=== PATIENT | male | born 1935 | race Caucasian/White ===

== ENCOUNTER 2017-04-25 09:29 | Outpatient (CLI) | payer MEDICARE ==
--- NOTE | 2017-04-25 10:04 | RAD ---
PA AND LATERAL CHEST: History: Dyspnea. Comparison: 06-24-15 FINDINGS: Heart size appears borderline enlarged with post op sternotomy change. Chronic lung changes are note d. No acute process. There are arthritic changes of the spine. IMPRESSION: Borderline cardiomegaly with chronic lung change. Stable chest. POS: [facility]
== END 2017-04-25 09:30 | disposition home or self-care (01) ==
LOC: RAD 09:29
PROVIDERS: ATTEND Internal Medicine
DX: R06.00 Dyspnea, unspecified (principal)
CPT/HCPCS: 71020

== ENCOUNTER 2018-03-01 10:50 | Outpatient (CLI) | payer MEDICARE ==
[2018-03-01] MEDS ORDERED: ISOVUE-370 76%-LOCM 1 ML ONE (11:14)
--- NOTE | 2018-03-01 14:15 | CT ---
CT OF THE ABDOMEN AND PELVIS: DATE: 03/01/18. COMPARISON: CT of abdomen 02/10/11. 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 TECHNIQUE: Serial axial CT imaging is obtained at 5 mm intervals from the lung bases through the pubic symphysis with IV contrast. Coronal and sagittal reformatted imaging obtained. FINDINGS: There is increased linear interstitial density noted within the inferolateral lingula suggesting scar and/or volume loss. Similar linear density noted in the right lung base. The lungs appear hyperinflated with increased interstitial density noted which suggests COPD in the formerly [facility] clinical setting. There is no free intraperitoneal air or free intraperitoneal fluid evident. Coronary arterial calcification is noted. The liver, gallbladder, spleen, and pancreas are grossly unremarkable. Bilateral adrenal masses are noted, measuring up to 1.5 cm on the right, stable, and measuring up to 2.1 cm on the left, stable. Stability since 2010 suggests benign etiology. Exophytic prominent upper pole left renal cyst present, measuring 6.4 cm. There is a low-density lesion in the mid pole of the right kidney measuring 1.9 cm. This lesion was not discretely visualized on the 02/10/11 CT examination. It demonstrates a rim which appears mildly t hickened and enhancing. Centrally, Hounsfield units of this lesion are approximately 30. Thus, this is suspicious for a possible renal cell carcinoma within the mid pole of the right kidney. The lack of oral contrast limits assessment of the bowel. No evidence for bowel inflammatory change or obstruction. There is a focal area of loss of volume of subcutaneous fat with mild skin thickening in the left low er quadrant/left inguinal region. In this region within the subcutaneous fat, there is an ill-define d linear area of increased density with no associated fluid collection. No drainable fluid collection is noted on this examination. There is diffuse atherosclerotic calcification of the abdominal aorta and its branches. Review of the osseous structures demonstrates severe degenerative change of the left hip. There is m ultilevel significant degenerative change involving the imaged spine, including prominent lower lumba r spine facet hypertrophic change. IMPRESSION: 1. Findings suspicious for a possible renal cell carcinoma within the mid pole of the right kidney. Recommend CT of the abdomen with and without contrast using a renal mass protocol. 2. Focal area of skin thickening and contour irregularity of the left soft tissues in the left ingui nal region with subjacent increased linear density within the subcutaneous fat. 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 There is no drainable fluid megan ection or associated abnormality within the peritoneal cavity. 3. Multiple additional incidental findings as detailed above. CODE T POS: [facility]
== END 2018-03-01 10:51 | disposition home or self-care (01) ==
LOC: BICCT 10:50
PROVIDERS: ATTEND Surgery
DX: L98.8 Other specified disorders of the skin and subcutaneous tissue (principal); R23.4 Changes in skin texture
CPT/HCPCS: 74177

== ENCOUNTER 2018-04-18 10:54 | Inpatient (IN) | payer MEDICARE ==
[2018-04-18 12:34] LABS: Actual Bicarbonate (HCO3a) 21.6 mEq/L (22-28); Analyzer IN Cardio ER; Base Excess (BEa) -1.7 mEq/L (-2.0 to +3.0); CO2 Tension 32.4 mmHg (35.0-45.0); Carboxyhemoglobin (COHb) 1.1 gm% (0.0-3.0); Hemoglobin (Hb) 13.4 g/dL (14.0-18.0); O2 Tension (PaO2) 101.8 mmHg (> 60.0); Potassium - ABG Lab 3.92 mmol/L (3.70-5.30); pH, Arterial 7.44 (7.35-7.45)
[2018-04-18 12:41] LABS: Puncture Site RRA
[2018-04-18 12:45] LABS: #Lymphocytes 0.4 thou/uL (1.20-3.40); #Monocytes 0.2 thou/uL (0.11-0.59); #Neutrophils 4.9 thou/uL (1.40-6.50); %Eosinophils 0.6 % (0.0-10.0); %Lymphocytes 7.1 % (21.0-51.0); %Monocytes 3.2 % (0.0-10.0); %Neutrophils 89.1 % (42.0-75.0); Hemoglobin 12.9 g/dL (14.0-18.0); Mean Corpuscular HGB CONC 31.5 g/dL (32.0-36.0); Mean Corpuscular Hemoglobin 29.6 pg (27.0-31.0); Mean Corpuscular Volume 94.1 fL (78.0-98.0); Mean Platelet Volume 7.1 fL (7.4-10.4); Platelet Count 154 thou/uL (130-400); RBC Distribution Width 12.7 % (11.5-14.5); Red Blood Cell (RBC) Count 4.34 mill/uL (4.70-6.10); White Blood Cell (WBC) Count 5.5 thou/uL (4.8-10.8)
[2018-04-18 13:13] LABS: Troponin I 0.276 ng/mL (< 0.028)
[2018-04-18] MEDS ORDERED: Albuterol Sulfate 1.25 MG/3 ML NEB NEB PRN (13:38)
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
[2018-04-18 15:31] LABS: Troponin I 0.491 ng/mL (< 0.028)
[2018-04-18 16:20] LABS: Lactic Acid 2.2 mmol/L (0.5-2.2)
[2018-04-18 16:43] VITALS: BMI 25.2
--- NOTE | 2018-04-18 19:32 | CON ---
DATE OF CONSULTATION: 04/18/2018 REASON FOR CONSULTATION: Positive troponins. PRIMARY [employer] OPERATOR: Darwin Lewis M.D. HISTORY OF PRESENT ILLNESS: Mr. Israel is a very pleasant 83-year-old white gentleman who comes to [facility] for increased shortness of breath. He noticed increased shortness of breath this morning. He noted that he had gained about 2 pounds in the last 2 days, so he had to double up on his Lasix. The shortness of breath got worse and actually started to become hypotensive, so he came into the [facility] Room where he was evaluated and was thought to be in COPD exacerbation with hypoten teodoro. He was given IV fluids and his blood pressure went from the 60s up to the 90s. Currently, his blood pressure is much better in the low 100s and is feeling much better as well. This is all after IV fluids. He has not received any Lasix. He denies any chest pain, tightness or pressure, but he is chronically short of breath. He is still a little bit more short of breath than normal. PAST MEDICAL HISTORY: 1. Chronic end-stage COPD. 2. Coronary artery disease status post CABG, first in 1984 x5 and the second one in 2001 x3. He has a known occluded RCA and occluded left circumflex and a subtotal LAD. He has a patent KHAN to the L AD back in 2014. Heart catheterization done by Dr. Lewis. He also has an open vein to an OM and a known occluded vein to the right. 3. Syncope, thought to be orthostatic. 4. Chronic atrial fibrillation. 5. Hypertension. 6. Obstructive sleep apnea. PAST SURGICAL HISTORY: 1. CABG as above. 2. Kidney stone removal. 3. Inguinal hernia repair. 4. Knee surgery. 5. Partial foot amputation, . SOCIAL HISTORY: No alcohol or drugs. Former smoker. FAMILY HISTORY: Positive for early heart disease in father. OUTPATIENT MEDICATIONS: 1. Systane gel eyedrops. 2. Multivitamins. 3. Potassium chloride. 4. Meclizine. 5. Lisinopril 2.5 b.i.d. 6. Imdur 60 mg a day. 7. [place]. 8. Lasix 4 mg b.i.d. 9. TriCor 48 a day. 10. Pulmicort. 11. Aspirin 81 a day. 12. Eliquis 5 mg b.i.d. 13. Albuterol inhaler. 14. Tylenol p.r.n. ALLERGIES: ADHESIVE TAPE. REVIEW OF SYSTEMS: A review of systems is done, it is all negative unless stated in the history of p resent illness. PHYSICAL EXAMINATION: VITAL SIGNS: Temperature 98.2, pulse 97, respiratory rate 18, satting 96% on 3 liters, blood pressur e 97/63, on my evaluation 116/68. GENERAL: Awake, alert, oriented x3, in mild respiratory distress. HEENT: Normocephalic, atraumatic. NECK: Supple. LUNGS: Have reduced breath sounds. CARDIOVASCULAR: S1, S2, no S3, S4. There is a grade 2/6 systolic murmur in the right upper sternal border. ABDOMEN: Soft, positive bowel sounds. EXTREMITIES: No edema. SKIN: Warm and dry. LABORATORY WORK: Reviewed. CBC with white count 5.5, hemoglobin 12.9, hematocrit 40, platelet count 154. ABG was reviewed. BNP was . Troponin went from 0.27 to 0.49. Lactic acid was 2.8 on ad mission down to 2.2 now. Chest x-ray showed chronic changes consistent with COPD, no obvious pulmonary edema. ASSESSMENT: 1. Non-ST elevation myocardial infarction: Likely demand ischemia from hypotension. 2. Chronic obstructive pulmonary disease exacerbation. 3. Hypotension, resolved after IV fluids. 4. Coronary artery disease. 5. Ischemic cardiomyopathy, last ejection fraction at 40%-45%. PLAN: 1. Continue to trend troponins. If they go significantly higher, we will plan on doing further risk stratification with a heart catheterization. At this point, he is most likely just having demand is chemia from his episode of hypotension. We have treated his COPD only and is already feeling better, which would go with this be being mostly COPD exacerbation and he had been doubling up on his Lasix lately as he thought the 3 pound gain was from volume overload and this may explain his fluid respons kenzie hypotension, stable at this time. 2. We will do echocardiogram in the morning and decision will be made depending on findings on echo. Thank you for letting us participate in the care of your patient. Dr. Lewis, his primary cardiol ogist will follow up in the morning.
[2018-04-18] MEDS: Apixaban 5 MG TAB PO SCH (20:15)
[2018-04-18] MEDS ORDERED: Vancomycin HCl 1 GM in Sodium Chloride 0.9% 250 ML 250 ML IVPB SCH (23:55)
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
[2018-04-19 04:38] LABS: Hemoglobin 12.7 g/dL (14.0-18.0); Mean Corpuscular HGB CONC 31.3 g/dL (32.0-36.0); Mean Corpuscular Hemoglobin 29.1 pg (27.0-31.0); Mean Corpuscular Volume 92.9 fL (78.0-98.0); Mean Platelet Volume 7.6 fL (7.4-10.4); Platelet Count 163 thou/uL (130-400); RBC Distribution Width 12.9 % (11.5-14.5); Red Blood Cell (RBC) Count 4.37 mill/uL (4.70-6.10); White Blood Cell (WBC) Count 6.5 thou/uL (4.8-10.8)
[2018-04-19 04:48] LABS: Band 5 % (5-11); Lymphocytes 8 % (21-51); MDiff Complete? YES; Monocytes 2 % (0-10); Neutrophil 85 % (42-75)
[2018-04-19 04:55] LABS: Anion Gap 11 mmol/L (10-20); BUN (Urea Nitrogen) 26 mg/dL (8.4-25.7); Calc. Creatinine Clearance 64 mL/min (70-130); Calcium 8.9 mg/dL (7.8-10.44); Carbon Dioxide 25 mmol/L (23-31); Chloride 105 mmol/L (98-107); Estimated GFR-MDRD 78; Glucose 158 mg/dL (83-110); Potassium 4.1 mmol/L (3.5-5.1); Sodium 137 mmol/L (136-145)
[2018-04-19 05:09] LABS: CKMB 12.9 ng/mL (0-6.6); Troponin I 0.701 ng/mL (< 0.028)
[2018-04-19] MEDS: Apixaban 5 MG TAB PO SCH ×2 (08:38→21:44)
[2018-04-19] MEDS ORDERED: Acetaminophen 325 MG TAB PO PRN (09:06)
--- NOTE | 2018-04-19 09:37 | PRG ---
DATE OF SERVICE: 04/19/2018 SUBJECTIVE: The patient seen and examined at bedside. He is in ICU bed 6. He seems to be better. His shortness of breath improved. He does not have any chest pain. OBJECTIVE: VITAL SIGNS: Blood pressure is 113/58, pulse is 101, respiratory rate is 25, pulse oximetry is 93%. HEENT: His head is atraumatic, normocephalic. Eyes are PERRLA. Sclerae is nonicteric. Oral mucosa is somewhat dry. NECK: Supple, no lymphadenopathy. Thyroid is not palpable. LUNGS: Few wheezes bilaterally. No crackles, no rales. HEART: S1, S2 normal, no S3, no S4, no murmur. ABDOMEN: Soft, nontender, bowel sounds are present, no organomegaly. EXTREMITIES: No clubbing, cyanosis or edema. NEUROLOGIC: He is alert and oriented x4. There is not any sensory or motor deficit. Cranial nerves are intact. LABORATORY DATA: Showed a white count of 6.5, hemoglobin 12.7, hematocrit 40.6, platelet count is 16 3,000. Normal electrolytes, BUN 26, creatinine 0.92, glucose 158, troponin I, second set 0.72. Thir d set 0.701. MICROBIOLOGY: None. IMPRESSION: 1. Exacerbation of chronic obstructive pulmonary disease. 2. Hypotension. It is felt that this was secondary to his doubling the dose on his Lasix for quite some time and volume depletion. 3. Elevated troponin, which is [id number] elevation myocardial infarction, most likely secondary to hypotension. 4. Chronic atrial fibrillation with rapid ventricular response. At this point, rate is controlled. 5. Coronary artery disease. 6. Hypertension. 7. History of obstructive sleep apnea. 8. History of syncope. 9. Renal insufficiency, improved. DISCUSSION: The patient's blood pressure improved significantly with IV fluids. His BUN is still el evated, which suggests that probably he needs a little bit more volume at this point. His chronic ob structive pulmonary disease improved. We will continue his IV steroids. He was seen by Dr. Amarilis boudreaux for pulmonary evaluation and management. Also, he was seen by Dr. Montes for Cardiology eval uation. PLAN: We will continue his IV antibiotic which is Levofloxacin. He was started on apixaban yesterda y 5 mg twice a day. We will continue that. We will continue albuterol treatments every 4 hours and p.r.n. and will restart his home medications except for furosemide, lisinopril and will continue DVT prophylaxis with SCDs. He might be able to go to the telemetry floor if it is okay with both subspeci alist.
--- NOTE | 2018-04-19 12:39 | PRG ---
DATE OF SERVICE: 04/19/2018 SERVICE: Pulmonary Medicine. INTERVAL HISTORY: The patient is doing fine from a respiratory standpoint. Denies any current chest pain, nausea, vomiting, fevers or chills. His shortness of breath has improved dramatically. He co ntinues to have a cough and is bringing up a little bit of yellow phlegm. Otherwise, there has been no interval change to his condition. PHYSICAL EXAMINATION: VITAL SIGNS: Afebrile, pulse 106, blood pressure 133/98, respirations 22, saturation 94% on 2 liters nasal cannula. GENERAL: The patient is awake and alert. He got mild respiratory distress with accessory muscle use , particularly with talking. He tends to settle down if not using his voice. HEENT: Normocephalic, atraumatic. Sclerae are white. Conjunctivae are pink. Oral mucosa is moist without lesions. LUNGS: Okay air entry. There is a prolonged expiratory phase with polyphonic wheezing, which is lat eral on the right compared to the left. Rhonchi are present with subtle dependent crackles. HEART: Normal rate, regular. ABDOMEN: Soft, nontender, nondistended. Bowel sounds are positive. MUSCULOSKELETAL: No cyanosis or clubbing. No pitting in the bilateral lower extremities. NEUROLOGIC: Grossly nonfocal. LABORATORY DATA: WBC 6.5, hemoglobin 12.7, platelets 163,000. Neutrophil count is 85% with 5% bands . PH 7.44, pCO2 32, pO2 101 on nasal cannula at that time. Basic metabolic profile is essentially u nremarkable. Cardiac enzymes are down trending to 0.701. Lactate 2.2. BNP 245, below his previousl y established baseline. ASSESSMENT: 1. Acute on chronic hypoxic respiratory failure. 2. Chronic obstructive pulmonary disease with acute exacerbation. 3. Atrial fibrillation, permanent. 4. Non-ST elevation myocardial infarction. 5. Chronic systolic heart failure without volume overload. DISCUSSION AND PLAN: We will deescalate our nebulized medications and steroids. Continue antibiotic s for the next 5 days. At this point, he can be transitioned out of the ICU to the telemetry unit. Pulmonary Critical Care will continue to follow in that location.
[2018-04-19] MEDS: Albuterol Sulfate 2.5 mg/3 ml Neb NEB PRN (14:33)
--- NOTE | 2018-04-19 17:14 | EKG ---
Test Reason : Blood Pressure : / mmHG Vent. Rate : 094 BPM Atrial Rate : 208 BPM P-R Int : 000 ms QRS Dur : 082 ms QT Int : 448 ms P-R-T Axes : 000 -78 204 degrees QTc Int : 560 ms Atrial fibrillation Left axis deviation Low voltage QRS Cannot rule out Inferior infarct , age undetermined Prolonged QT Abnormal ECG When compared with ECG of 18-APR-2018 11:03, (Unconfirmed) ST now depressed in Anterior leads T wave inversion more evident in Anterolateral leads QT has lengthened Confirmed by DR. Prosper SUN ([id number]) on 04/19/2018 5:14:36 PM Referred By: BANDAR Confirmed By:DR. Prosper SUN
--- NOTE | 2018-04-19 18:23 | PDOC.CTH ---
Cardiology Progress Note - Subjective Pt feels better. Recently admitted for COPD excacerbation - Objective Vital Signs Temp Pulse Resp BP Pulse Ox 04/19/18 15:01 97.9 F 97 22 H 136/75 98 04/19/18 14:33 96 18 93 L 04/19/18 13:07 94 16 93 L 04/19/18 10:46 106 H 22 H 94 L 04/19/18 08:00 94 L 04/19/18 07:45 94 24 H 93 L 04/19/18 07:00 98.1 F Weight 163 lb 5.8 oz 04/18/18 04/19/18 04/20/18 06:59 06:59 06:59 Intake Total 1160 1470 Output Total 700 951 Balance 460 519 - Physical Examination General/Neuro: NAD Neck: no JVD present Lungs: unlabored respirations, other: - Telemetry Telemetry Rhythm: wheezingf noted bilaterally - Labs Result Diagrams: 04/19/18 03:41 04/19/18 03:41 Troponin/CKMB CK-MB (CK-2) 12.9 ng/mL (0-6.6) H* 04/19/18 03:41 Troponin I 0.701 ng/mL (< 0.028) H* 04/19/18 03:41 - Assessment/Plan Elevated torponin Severe CAD COPD Tobacco use Pt with severe mutivessel disease felt to not be a good candidate for intervention Increase in troponin secondary to demand ischemia Continue current conservative treatment Pt not interested in aggressive treatment
[2018-04-19] MEDS: Budesonide 0.25 MG/2 ML NEB NEB SCH (18:41)
[2018-04-20] MEDS: Albuterol Sulfate 2.5 mg/3 ml Neb NEB PRN (02:43)
[2018-04-20 05:33] LABS: Anion Gap 9 mmol/L (10-20); BUN (Urea Nitrogen) 26 mg/dL (8.4-25.7); Calc. Creatinine Clearance 69 mL/min (70-130); Calcium 8.9 mg/dL (7.8-10.44); Carbon Dioxide 27 mmol/L (23-31); Chloride 107 mmol/L (98-107); Estimated GFR-MDRD 87; Glucose 145 mg/dL (83-110); Potassium 4.2 mmol/L (3.5-5.1); Sodium 139 mmol/L (136-145)
--- NOTE | 2018-04-20 06:11 | PDOC.CTH ---
Cardiology Progress Note - Subjective States has increased SOB today. States he ambulated and the O2 was not turned on after he got back in bed. No CP noted. - Objective Vital Signs Temp Pulse Resp BP Pulse Ox 04/20/18 03:37 97.7 F 91 16 125/67 95 04/20/18 02:43 105 H 24 H 97 04/19/18 23:14 86 16 97 04/19/18 20:00 97.9 F 88 16 121/82 94 L 04/19/18 18:41 74 16 97 Weight 163 lb 5.8 oz 04/18/18 04/19/18 04/20/18 06:59 06:59 06:59 Intake Total 1160 1470 Output Total 700 951 Balance 460 519 - Physical Examination General/Neuro: alert & oriented x3, NAD Neck: carotid US brisk, no JVD present Lungs: other: (mildly lbored) Heart: other: (irr) Abdomen: no HSM, NT/ND, soft - Labs Result Diagrams: 04/20/18 04:46 04/20/18 04:46 Troponin/CKMB CK-MB (CK-2) 12.9 ng/mL (0-6.6) H* 04/19/18 03:41 Troponin I 0.701 ng/mL (< 0.028) H* 04/19/18 03:41 - Assessment/Plan Acute on chronic systolic heart failure Severe CAD Continued tobacco use COPD Lasix added Overall lungs sound better today with no wheezing on my examination continue aggressive cv treatment From my standpoint, he is ok to transfer to medical on NOAC, ASA and statin Avoid BB secondary to wheezing
[2018-04-20 06:44] LABS: Band 7 % (5-11); Hemoglobin 12.6 g/dL (14.0-18.0); Lymphocytes 4 % (21-51); MDiff Complete? YES; Mean Corpuscular HGB CONC 31.4 g/dL (32.0-36.0); Mean Corpuscular Hemoglobin 29.3 pg (27.0-31.0); Mean Corpuscular Volume 93.4 fL (78.0-98.0); Mean Platelet Volume 7.3 fL (7.4-10.4); Monocytes 12 % (0-10); Neutrophil 77 % (42-75); Platelet Count 159 thou/uL (130-400); RBC Distribution Width 13.1 % (11.5-14.5); Red Blood Cell (RBC) Count 4.29 mill/uL (4.70-6.10); White Blood Cell (WBC) Count 10.3 thou/uL (4.8-10.8)
[2018-04-20] MEDS: Budesonide 0.25 MG/2 ML NEB NEB SCH ×2 (07:04→20:30)
[2018-04-20] MEDS: predniSONE 20 MG TAB PO SCH (08:40)
[2018-04-20] MEDS: Fenofibrate 48 MG TAB PO SCH (08:40)
[2018-04-20] MEDS: Prenatal Vitamin 1 TAB PO SCH (08:40)
[2018-04-20] MEDS: Aspirin 81 mg Enteric Coated Tablet PO SCH (08:40)
[2018-04-20] MEDS: Apixaban 5 MG TAB PO SCH ×2 (08:41→21:00)
[2018-04-20] MEDS: Potassium Chloride 10 MEQ TAB PO SCH (08:41)
--- NOTE | 2018-04-20 11:11 | PRG ---
DATE OF SERVICE: 04/20/2018 SUBJECTIVE: The patient is seen and examined at the bedside. He is still short of breath, but that is improved. He does not have any chest pain. He participated in physical therapy yesterday, but he could not finish because of dyspnea. OBJECTIVE: VITAL SIGNS: Blood pressure is 125/83, pulse is 88, temperature 97.8, respiratory rate is 18, and O2 saturation is 96% on 2 liters by nasal cannula. HEENT: Head is atraumatic, normocephalic. Eyes are PERRLA, sclerae is nonicteric. Oral mucosa is m oist. NECK: Supple. LUNGS: Emphysematous with few wheezes bilaterally. No crackles. HEART: S1, S2 distant. No S3, no S4. ABDOMEN: Soft, nontender, nondistended. EXTREMITIES: No clubbing, cyanosis or edema. NEUROLOGIC: He is alert and oriented x4. There is not any motor or sensory deficits present. Crani al nerves are intact. LABORATORY DATA: Showed white count of 10.3, hemoglobin of 12.6, hematocrit 41. Platelet count 159, 000. Normal electrolytes, BUN of 26, creatinine 0.84, glucose 145. IMPRESSION: 1. Exacerbation of chronic obstructive pulmonary disease with some improvement. He is switched to o ral prednisone by linter tender. I will continue his antibiotic and DuoNebs. He wants to buy an oxy gen concentrator at home so he can use it 24 hours a day and that is what it looks like he will need to do that. 2. Elevated troponin, which is felt to be non-ST segment elevation myocardial infarction. 3. Chronic atrial fibrillation with rapid ventricular response, rate controlled. 4. Severe coronary artery disease. The patient was seen by Dr. Lewis, his primary resident care spec, who recommends conservative treatment. 5. Hypertension. 6. History of obstructive sleep apnea. 7. History of syncope. 8. Renal insufficiency, improved. PLAN: Continue his IV antibiotic and p.o. steroids. Continue his apixaban twice a day. Continue Du oNebs, continue SCDs for DVT prophylaxis.
[2018-04-20] MEDS ORDERED: Furosemide 40 MG TAB PO SCH (11:45)
--- NOTE | 2018-04-20 12:20 | PRG ---
DATE OF SERVICE: 04/20/2018 SERVICE: Pulmonary Medicine. INTERVAL HISTORY: The patient is doing okay from a respiratory standpoint. He continues to make slo w progress. That being said, last night, at 2:00 in the morning, he needed to use the restroom. He is keeping the urinal in the bathroom. The process of being off the oxygen to get to the bathroom wa s horrendous. He had a terrible dyspnea, cough that came of that. Once he got back into bed, it too k him a good 15-20 minutes before he settled down and required a nebulized treatment. That being hoang d, he did well and that was his only event that occurred. He denies any current fevers or chills. H e is bringing up a little bit of green sputum. PHYSICAL EXAMINATION: VITAL SIGNS: Afebrile, pulse 88, blood pressure 125/83, respirations 18, saturation 96% on 2 liters nasal cannula. GENERAL: The patient is awake, alert, in no apparent distress. LUNGS: Reduced air entry with a prolonged expiratory phase. I hear wheezing as well as crackles pre sent. Rhonchi clear with cough. HEART: Normal rate, regular. ABDOMEN: Soft, nontender, nondistended. Bowel sounds are positive. MUSCULOSKELETAL: No cyanosis or clubbing. There is no pitting in the bilateral lower extremities. NEUROLOGIC: Grossly nonfocal. LABORATORY DATA: WBC 10.3, hemoglobin 12.6, platelets 159,000. Neutrophil count is 77% on top of 7% bands. Basic metabolic profile is essentially unremarkable. His BUN is 26 and stable. Bicarbonate 27. Troponin was previously downtrending. ASSESSMENT: 1. Acute on chronic hypoxic respiratory failure. 2. Chronic obstructive pulmonary disease with acute exacerbation. 3. Atrial fibrillation, permanent. 4. Rjb-UI-skuunqhru myocardial infarction, secondary to demand. 5. Chronic systolic heart failure with minimal volume overload. DISCUSSION AND PLAN: We will resume the patient's home dose of Lasix. Pulmonary Critical Care will continue to follow along. We will continue supportive measures with antibiotics, nebulized medicatio ns, and steroids. He will need an additional 1-2 days in the hospital. He has not fully turned arou nd from this chronic obstructive pulmonary disease exacerbation. I will send off respiratory virus p eliceo to see whether or not there is a virus that caused some of this decompensation.
--- NOTE | 2018-04-20 12:54 | PQF ---
DATE: 04-23-18 ATTN: DR. MARIAN PORTILLO / DR. VALDEZ Please exercise your independent, professional judgment in responding to the clarification form. Clinical indicators are provided on the bottom of this form for your review Please check appropriate box(s): [ ] Acute Renal Failure (ARF) / Acute Kidney Injury (DONELL) [ ] Insignificant Lab Values [ ] Other diagnosis [ x] Unable to determine In addition, please specify: Present on Admission (POA): [ ] Yes [ ] No [ ] Unable to determine National Kidney Foundation Guidelines for CKD Staging Stage I Kidney damage with normal or increased GFR GFR > 90 Stage II Kidney damage with mildly decreased GFR GFR 60-89 Stage III Kidney damage with moderately decreased GFR GFR 30-59 Stage IV Kidney damage with severely decreased GFR GFR 16-29 Stage V Kidney failure GFR<15 ESRD End Stage Renal Disease On dialysis Acute Renal Failure/Acute Kidney Failure defined as: Increases in SCr by (>) 0.3 mg/dl within 48 hours OR- Increases in SCr by (>) 1.5 times baseline, known or presumed to have occurred within the prior 7 days OR- Urine volume < 0.5 ml/kg/hour for 6 hours (KDIGO supplement 2012 for RIFLE/BEATRIZ criteria) For continuity of documentation, please document condition throughout progress notes and discharge summary. Thank You. CLINICAL INDICATORS - SIGNS / SYMPTOMS / LAB GFR: 04-19-18: 78 04-20-18: 87 CREATININE: 04-19-18: 0.92 04-20-18: 0.84 BUN: 04-19-18: 26 04-20-18: 26 H&P: RENAL INSUFFICIENCY, MOST LIKELY PRERENAL PN DR. PORTILLO 04-20-18: RENAL INSUFFICIENCY, IMPROVED RISK FACTORS: ER: HX COPD, SOB, WEAKNESS, HTN, A FIB, CAD, CHF, CABG , TOBACCO USE ER: HOME MEDS: ISOSORBIDE MONONITRATE, FUROSEMIDE, ASA, NORCO. LISINOPRIL TREATMENTS: ER: NS IVF X 2 (This form is maintained as a part of the permanent medical record) 2014 [employer], [employer]. All Rights Reserved [email or web address] Office: [phone] [facility]
--- NOTE | 2018-04-20 13:14 | PQF ---
DATE: 04-23-18 ATTN: DR. MARIAN PORTILLO/ DR. VALDEZ Please exercise your independent, professional judgment in responding to the clarification form. Clinical indicators are provided on the bottom of this form for your review Please check appropriate box(s) to clarify if the following diagnosis has been ruled in or ruled out: SEPSIS [ ] Ruled in diagnosis [ ] Continue to treat [ ] Resolved [ x ] Ruled out diagnosis [ ] Other diagnosis [ ] Unable to determine In addition, please specify: Present on Admission (POA): [ ] Yes [ ] No [ ] Unable to determine For continuity of documentation, please document condition throughout progress notes and discharge summary. Thank You. CLINICAL INDICATORS - SIGNS / SYMPTOMS / LABS ER: COPD, A FIB, SEPSIS H&P: HYPOTENSION OF UNKNOWN ETIOLOGY AT THIS POINT, RULE OUT OUT SEPSIS, RULE OUT CARDIOLOGY ETIOLOGY BP: 74/58, 86/57, 92/63, 84/58, 96/63, 89/66 RR: ER: 24, 22 04-19-18: 24, 22, 22, 24 PULSE: 04-19-18: 106 04-20-18: 105, 103, 110 RISK FACTORS: H&P: HYPOTENSION OF UNKNOWN ETIOLOGY AT THIS POINT, RULE OUT OUT SEPSIS, RULE OUT CARDIOLOGY ETIOLOGY ER: SOB, WEAKNESS, HTN, A FIB, BPH, CHF, CABG, TOBACCO USE TREATMENTS: ER: VANCOMYCIN IV, IVF, LEVAQUIN (This form is maintained as a part of the permanent medical record) 2014 [employer], [employer]. All Rights Reserved [email or web address] Office: [phone] [facility]
[2018-04-21 05:50] LABS: Band 3 % (5-11); Hemoglobin 12.4 g/dL (14.0-18.0); Lymphocytes 13 % (21-51); MDiff Complete? YES; Mean Corpuscular HGB CONC 30.9 g/dL (32.0-36.0); Mean Corpuscular Volume 93.7 fL (78.0-98.0); Mean Platelet Volume 7.3 fL (7.4-10.4); Monocytes 10 % (0-10); Neutrophil 73 % (42-75); Platelet Count 156 thou/uL (130-400); Reactive Lymphocytes 1 % (0-10); Red Blood Cell (RBC) Count 4.29 mill/uL (4.70-6.10); White Blood Cell (WBC) Count 8.4 thou/uL (4.8-10.8)
[2018-04-21 06:12] LABS: Anion Gap 7 mmol/L (10-20); BUN (Urea Nitrogen) 25 mg/dL (8.4-25.7); Calc. Creatinine Clearance 69 mL/min (70-130); Carbon Dioxide 33 mmol/L (23-31); Chloride 104 mmol/L (98-107); Estimated GFR-MDRD 87; Glucose 102 mg/dL (83-110); Potassium 4.3 mmol/L (3.5-5.1); Sodium 140 mmol/L (136-145)
[2018-04-21] MEDS: Budesonide 0.25 MG/2 ML NEB NEB SCH ×2 (06:46→18:22)
[2018-04-21] MEDS: predniSONE 20 MG TAB PO SCH (09:21)
[2018-04-21] MEDS: Potassium Chloride 10 MEQ TAB PO SCH (09:21)
[2018-04-21] MEDS: Furosemide 40 MG TAB PO SCH (09:21)
[2018-04-21] MEDS: Aspirin 81 mg Enteric Coated Tablet PO SCH (09:22)
[2018-04-21] MEDS: Apixaban 5 MG TAB PO SCH ×2 (09:22→20:20)
[2018-04-21] MEDS: Fenofibrate 48 MG TAB PO SCH (09:22)
[2018-04-21] MEDS: Prenatal Vitamin 1 TAB PO SCH (09:22)
--- NOTE | 2018-04-21 12:35 | PDOC.PN ---
- Subjective Encounter Start Date: 04/21/18 Encounter Start Time: 10:30 Subjective: breathing better, is amb in hallway per patient - Objective Resuscitation Status: Resuscitation Status DNR:Do Not Resuscitate MAR Reviewed: Yes Vital Signs & Weight: Vital Signs (12 hours) Temp Pulse Resp BP Pulse Ox 04/21/18 08:01 97.7 F 81 20 126/58 L 95 04/21/18 08:00 95 04/21/18 06:50 94 L 04/21/18 06:46 84 16 04/21/18 04:00 97.8 F 70 20 124/63 96 04/21/18 02:59 76 16 95 Weight Weight 165 lb Most Recent Monitor Data Heart Rate from ECG 93 NIBP 135/68 NIBP BP-Mean 90 Respiration from ECG 23 SpO2 96 I&O: 04/20/18 04/21/18 04/22/18 06:59 06:59 06:59 Intake Total 1950 600 Output Total 2025 2224 Balance -76 -4926 Result Diagrams: 04/21/18 04:56 04/21/18 04:56 Phys Exam - Physical Examination HEENT: PERRLA, moist MMs Neck: no JVD, supple Respiratory: no wheezing rhonchi+, basal rales+ Cardiovascular: RRR, no significant murmur Gastrointestinal: soft, non-tender, positive bowel sounds Musculoskeletal: no edema, pulses present Neurological: non-focal, moves all 4 limbs Psychiatric: normal affect, A&O x 3 Dx/Plan (1) CHF exacerbation Code(s): I50.9 - HEART FAILURE, UNSPECIFIED Status: Acute Qualifiers: Heart failure type: combined systolic and diastolic Qualified Code(s): I50.43 - Acute on chronic combined systolic (congestive) and diastolic ( congestive) heart failure (2) Acute and chronic respiratory failure with hypoxia Code(s): J96.21 - ACUTE AND CHRONIC RESPIRATORY FAILURE WITH HYPOXIA Status: Acute Comment: improving.. (3) COPD exacerbation Code(s): J44.1 - CHRONIC OBSTRUCTIVE PULMONARY DISEASE W (ACUTE) EXACERBATION Status: Acute (4) A-fib Code(s): I48.91 - UNSPECIFIED ATRIAL FIBRILLATION Status: Chronic Qualifiers: Comment: stable.. (5) CAD (coronary artery disease) Code(s): I25.10 - ATHSCL HEART DISEASE OF [place] CORONARY ARTERY W/O ANG PCTRS Status: Chronic Qualifiers: Coronary Disease-Associated Artery/Lesion type: bypass graft [place] vs. transplanted heart: [place] heart Associated angina: without angina Qualified Code(s): I25.810 - Atherosclerosis of coronary artery bypass graft(s) without angina pectoris (6) HTN (hypertension) Code(s): I10 - ESSENTIAL (PRIMARY) HYPERTENSION Status: Chronic Qualifiers: Hypertension type: essential hypertension Qualified Code(s): I10 - Essential (primary) hypertension (7) Dyslipidemia Code(s): E78.5 - HYPERLIPIDEMIA, UNSPECIFIED Status: Chronic - Plan is on levaquin, nebs and prednisone -: asp, eliquis, lasix, tricor -: to mobilize as tolerated -: tx to med floor -: hemostable, d/w family at bedside * . Review of Systems - Medications/Allergies Allergies/Adverse Reactions: Allergies Allergy/AdvReac Type Severity Reaction Status Date / Time adhesive AdvReac Verified 02/07/18 16:57 Medications: Current Medications Acetaminophen (Tylenol) 650 mg PO Q4H PRN PRN Reason: Pain Albuterol Sulfate (Ventolin) 2.5 mg NEB Q2H PRN PRN Reason: Wheezing Last Admin: 04/20/18 02:43 Dose: 2.5 mg Albuterol/Ipratropium (Duoneb) 3 ml NEB [id number] [facility] Last Admin: 04/21/18 06:46 Dose: 3 ml Apixaban (Eliquis) 5 mg PO BID [facility] Last Admin: 04/21/18 09:22 Dose: 5 mg Aspirin (Ecotrin) 81 mg PO DAILY [facility] Last Admin: 04/21/18 09:22 Dose: 81 mg Budesonide (Pulmicort Neb Solution) 0.25 mg NEB BID-RT [facility] Last Admin: 04/21/18 06:46 Dose: 0.25 mg Fenofibrate (Tricor) 48 mg PO DAILY [facility] Last Admin: 04/21/18 09:22 Dose: 48 mg Furosemide (Lasix) 40 mg PO DAILY-AC [facility] Last Admin: 04/21/18 09:21 Dose: 40 mg Levofloxacin 750 mg/ Device 150 mls @ 100 mls/hr IVPB Q24HR@1000 [facility] Last Admin: 04/21/18 09:22 Dose: 150 mls Isosorbide Mononitrate (Imdur) 60 mg PO DAILY [facility] Last Admin: 04/21/18 09:22 Dose: 60 mg Potassium Chloride (Klor-Con 10) 10 meq PO DAILY [facility] Last Admin: 04/21/18 09:21 Dose: 10 meq Prednisone (Prednisone) 40 mg PO [facility] Last Admin: 04/21/18 09:21 Dose: 40 mg Multivit/Folic Acid/Iron ( Vitamin) 1 tab PO DAILY [facility] Last Admin: 04/21/18 09:22 Dose: 1 tab
--- NOTE | 2018-04-21 15:27 | PRG ---
DATE OF SERVICE: 04/21/2018 SERVICE: Pulmonary Medicine. INTERVAL HISTORY: The patient actually feels like he is much improved. He finally turned the corner . He is moving better air. He is able to walk the hallways. He does have dyspnea that slows him do wn. That being said, he is much closer to baseline at this time. PHYSICAL EXAMINATION: VITAL SIGNS: Afebrile, pulse 89, blood pressure 122/62, respirations 18, saturation 92% on room air. GENERAL: The patient is awake, alert, no apparent distress. LUNGS: Decent air entry. There is still prolonged expiratory phase. Minimal crackles are present d ependently with expiratory wheezing. Rhonchi are much improved. HEART: Normal rate, regular. ABDOMEN: Soft, nontender, nondistended. Bowel sounds are positive. MUSCULOSKELETAL: No cyanosis or clubbing. There is no pitting in the bilateral lower extremities. NEUROLOGIC: Grossly nonfocal. LABORATORY DATA: WBC 8.4, hemoglobin 12.4, platelets 153,000 with a normal differential. Basic meta bolic profile is essentially unremarkable otherwise. Respiratory virus panel is negative. ASSESSMENT: 1. Acute on chronic hypoxic respiratory failure. 2. Chronic obstructive pulmonary disease with acute exacerbation. 3. Atrial fibrillation, permanent. 4. Non-ST elevation myocardial infarction secondary to demand. 5. Chronic systolic heart failure. DISCUSSION AND PLAN: The patient has essentially returned to baseline. If he is still doing well by tomorrow morning, he can be considered for transition out of the hospital. In the meantime, we will continue supportive measures including antibiotics, nebulized medications and steroids. Antibiotics and steroids can be discontinued after a total duration of 5 days. On discharge from the hospital, he will need to resume his home inhalers.
[2018-04-21] MEDS ORDERED: Atorvastatin Calcium 20 MG TAB PO SCH (21:00)
[2018-04-22] MEDS: Budesonide 0.25 MG/2 ML NEB NEB SCH (06:50)
[2018-04-22] MEDS: Apixaban 5 MG TAB PO SCH (09:17)
[2018-04-22] MEDS: Furosemide 40 MG TAB PO SCH (09:17)
[2018-04-22] MEDS: predniSONE 20 MG TAB PO SCH (09:17)
[2018-04-22] MEDS: Aspirin 81 mg Enteric Coated Tablet PO SCH (09:18)
[2018-04-22] MEDS: Potassium Chloride 10 MEQ TAB PO SCH (09:18)
--- NOTE | 2018-04-22 10:40 | PDOC.PN ---
- Subjective Encounter Start Date: 04/22/18 Encounter Start Time: 08:15 Subjective: is amb in hallway, sob is better - Objective Resuscitation Status: Resuscitation Status DNR:Do Not Resuscitate MAR Reviewed: Yes Vital Signs & Weight: Vital Signs (12 hours) Temp Pulse Resp BP BP Pulse Ox 04/22/18 08:00 96 04/22/18 07:26 97.7 F 78 20 118/70 96 04/22/18 06:50 86 16 93 L 04/22/18 06:48 86 16 93 L 04/22/18 04:04 98.7 F 79 18 119/67 94 L 04/22/18 00:15 97.8 F 82 20 132/72 94 L 04/21/18 23:09 95 04/21/18 23:08 96 Weight Weight 157 lb 8 oz Most Recent Monitor Data Heart Rate from ECG 93 NIBP 135/68 NIBP BP-Mean 90 Respiration from ECG 23 SpO2 96 I&O: 04/21/18 04/22/18 04/23/18 06:59 06:59 06:59 Intake Total 600 780 240 Output Total 222 3400 Balance -1625 -2620 240 Result Diagrams: 04/21/18 04:56 04/21/18 04:56 Phys Exam - Physical Examination HEENT: PERRLA, moist MMs Neck: no JVD, supple Respiratory: no wheezing, no rales Cardiovascular: RRR, no significant murmur Gastrointestinal: soft, non-tender, positive bowel sounds Musculoskeletal: no edema, pulses present Neurological: non-focal, moves all 4 limbs Psychiatric: normal affect, A&O x 3 Dx/Plan (1) CHF exacerbation Code(s): I50.9 - HEART FAILURE, UNSPECIFIED Status: Acute Qualifiers: Heart failure type: combined systolic and diastolic Qualified Code(s): I50.43 - Acute on chronic combined systolic (congestive) and diastolic ( congestive) heart failure (2) Acute and chronic respiratory failure with hypoxia Code(s): J96.21 - ACUTE AND CHRONIC RESPIRATORY FAILURE WITH HYPOXIA Status: Acute Comment: improving.. (3) COPD exacerbation Code(s): J44.1 - CHRONIC OBSTRUCTIVE PULMONARY DISEASE W (ACUTE) EXACERBATION Status: Acute (4) A-fib Code(s): I48.91 - UNSPECIFIED ATRIAL FIBRILLATION Status: Chronic Qualifiers: Comment: stable.. (5) CAD (coronary artery disease) Code(s): I25.10 - ATHSCL HEART DISEASE OF [place] CORONARY ARTERY W/O ANG PCTRS Status: Chronic Qualifiers: Coronary Disease-Associated Artery/Lesion type: bypass graft [place] vs. transplanted heart: [place] heart Associated angina: without angina Qualified Code(s): I25.810 - Atherosclerosis of coronary artery bypass graft(s) without angina pectoris (6) HTN (hypertension) Code(s): I10 - ESSENTIAL (PRIMARY) HYPERTENSION Status: Chronic Qualifiers: Hypertension type: essential hypertension Qualified Code(s): I10 - Essential (primary) hypertension (7) Dyslipidemia Code(s): E78.5 - HYPERLIPIDEMIA, UNSPECIFIED Status: Chronic - Plan oral levaquin, steroid taper -: dc pt home -: has home oxygen and a cylinder in back of his truck -: he will try to buy portable one at his own expense later -: spo2 is 96% on 2 liters, may taper and dc for spo2 of 90% * .
[2018-04-22 13:47] VITALS: BP 131/78; TEMP 98.9
--- NOTE | 2018-04-22 16:44 | DIS ---
DATE OF ADMISSION: 04/18/2018 DATE OF DISCHARGE: 04/22/2018 DISCHARGE DISPOSITION: To home. PRIMARY DISCHARGE DIAGNOSES: Acute on chronic respiratory failure with hypoxia and hypercarbia, chronic obstructive pulmonary disease exacerbation, congestive heart failure exacerbation with combined systolic and diastolic dysfunction. SECONDARY DISCHARGE DIAGNOSES: Chronic atrial fibrillation, coronary artery disease, hypertension and dyslipidemia. PROCEDURES DONE DURING HOSPITALIZATION: Chest x-ray done on the day of admission showed minimal cardiomegaly, slight increase in right basilar haziness. Hemoglobin and hematocrit on the day of discharge 12 and 40, platelet count 156, MCV 93. Discharge BUN and creatinine 25 and 0.8. The patient had indeterminate troponin peaking up to 0.7, CK-MB 2.5. BNP was 245. INPATIENT CONSULTS: Dr. Posada for Pulmonology and Dr. Lewis for Cardiology. DISCHARGE MEDICATIONS: Levaquin 500 mg p.o. daily for another 5 days, prednisone tapering dose starting at 10 mg, Eliquis 5 mg twice daily, Lipitor 20 mg p.o. at bedtime, potassium chloride 10 mEq p.o. daily, lisinopril 2.5 mg p.o. twice daily, Imdur extended release 60 mg p.o. daily, Lasix 40 mg p.o. daily, TriCor 48 mg p.o. daily, Pulmicort nebulizer twice daily, aspirin 81 mg p.o. daily. ALLERGIES: ADHESIVES. DISCHARGE PLAN: Patient to follow up with primary care physician in [address] Lewis and Dr. Posada as advised. BRIEF COURSE DURING HOSPITALIZATION: Patient initially got admitted on the with complaints of shortness of breath. He was also hypotensive on admission. The patient had indeterminate cardiac enzymes as well. He has known history of CHF with combined systolic and diastolic dysfunction [place] Heart classification stage 2. Initially, patient was hydrated. Later was diuresed. He was on Levaquin along with nebulizer and steroids. He was evaluated by Dr. Posada and Dr. Montes/Joshua for Cardiology. Prior to discharge, he is ambulating in the hallway and eating well. The patient has home oxygen at home which he uses at night time. He has extra cylinder which he uses when he goes out, but does not have a portable cylinder which he is planning to buy them. The patient states his insurance will not cover due to his financial status. Please see a [id number] documentation on [facility] for the day of discharge. HAYDEE
== END 2018-04-22 13:52 | disposition home or self-care (01) | DRG 280 ==
LOC: ERS 10:54 → CCU 11:43 → 2NO 04-19 14:50 → T4-A 04-21 20:03
PROVIDERS: ADMIT Internal Medicine; ATTEND Internal Medicine
DX: I11.0 Hypertensive heart disease with heart failure (principal); J96.21 Acute and chronic respiratory failure with hypoxia; I21.4 Non-ST elevation (NSTEMI) myocardial infarction; J96.22 Acute and chronic respiratory failure with hypercapnia; J44.1 Chronic obstructive pulmonary disease with (acute) exacerbation; I50.43 Acute on chronic combined systolic (congestive) and diastolic (congestive) heart failure; Z99.81 Dependence on supplemental oxygen; I25.10 Atherosclerotic heart disease of native coronary artery without angina pectoris; I48.91 Unspecified atrial fibrillation; G47.33 Obstructive sleep apnea (adult) (pediatric); Z95.1 Presence of aortocoronary bypass graft; Z66 Do not resuscitate; E78.5 Hyperlipidemia, unspecified; F17.210 Nicotine dependence, cigarettes, uncomplicated; N28.9 Disorder of kidney and ureter, unspecified
CPT/HCPCS: 36415; 80048; 82553; 82805; 83605; 83880; 84484; 85007; 85027; 87633; 93005; 93010; 93306; 93798; 94640; 96361; 96365; 96366; J1956; J2920; J3370; J7506; J7611; J7620; J7626

== ENCOUNTER 2018-11-05 08:50 | Inpatient (IN) | payer MEDICARE ==
[2018-11-05 09:12] LABS: #Eosinphils 0.2 thou/uL (0.0-0.7); #Lymphocytes 1.6 thou/uL (1.20-3.40); #Monocytes 0.7 thou/uL (0.11-0.59); #Neutrophils 5.5 thou/uL (1.40-6.50); %Basophils 0.1 % (0.0-1.0); %Eosinophils 2.4 % (0.0-10.0); %Lymphocytes 19.9 % (21.0-51.0); %Monocytes 8.4 % (0.0-10.0); %Neutrophils 69.2 % (42.0-75.0); Hemoglobin 13.1 g/dL (14.0-18.0); Mean Corpuscular HGB CONC 31.9 g/dL (32.0-36.0); Mean Corpuscular Hemoglobin 30.6 pg (27.0-31.0); Mean Corpuscular Volume 95.9 fL (78.0-98.0); Mean Platelet Volume 7.1 fL (7.4-10.4); Platelet Count 172 thou/uL (130-400); RBC Distribution Width 12.2 % (11.5-14.5); Red Blood Cell (RBC) Count 4.29 mill/uL (4.70-6.10); White Blood Cell (WBC) Count 7.9 thou/uL (4.8-10.8)
--- NOTE | 2018-11-05 09:27 | RAD ---
PORTABLE CHEST 1 VIEW: DATE: 11/05/2018. TIME: 9:07 a.m. HISTORY: Difficulty breathing, dyspnea. FINDINGS: Comparison is made with the exam of 04/18/2018. There are changes of median sternotomy. The heart is enlarged. No lobar consolidation, pneumothorac es, mesfin pulmonary edema, or pleural effusions are seen. IMPRESSION: No acute process. POS: CIARAN
[2018-11-05 09:39] LABS: ALT (SGPT) 25 U/L (8-55); AST (SGOT) 24 U/L (5-34); Alkaline Phosphatase 51 U/L (40-150); Anion Gap 16 mmol/L (10-20); BUN (Urea Nitrogen) 26 mg/dL (8.4-25.7); Bilirubin, Total 0.6 mg/dL (0.2-1.2); Calc. Creatinine Clearance 0 mL/min (70-130); Calcium 9.2 mg/dL (7.8-10.44); Carbon Dioxide 26 mmol/L (23-31); Chloride 104 mmol/L (98-107); Estimated GFR-MDRD 66; Globulin 2.2 g/dL (2.4-3.5); Glucose 109 mg/dL (83-110); Potassium 4.4 mmol/L (3.5-5.1); Protein, Total 6.2 g/dL (5.8-8.1); Sodium 142 mmol/L (136-145)
[2018-11-05 09:56] LABS: CKMB 3.6 ng/mL (0-6.6)
[2018-11-05] MEDS ORDERED: cefTRIAXone\\ROCEPHIN 2 GM VIAL ONE (11:47)
[2018-11-05 11:53] LABS: Troponin I 0.146 ng/mL (< 0.028)
[2018-11-05] MEDS ORDERED: Ondansetron ODT 4 MG TAB PO PRN (12:14)
[2018-11-05] MEDS ORDERED: Acetaminophen 325 MG TAB PO PRN (12:14)
--- NOTE | 2018-11-05 13:18 | HP ---
PRIMARY CARE PROVIDER: Dr. Will Slade. HISTORY OF PRESENT ILLNESS: The patient referred to the [facility] by [facility] for acute exacerbation of COPD and acute respiratory failure. The patient was fine this morning. He sleeps with O2. He went out and let his dog out, became short of breath, wheezing, and cough with clear mucus. He was unable to catch his breath. He was brought to the emergency room. He relates that he still smokes a cigar about once a week. He had marked sweats with chills this morning. PAST MEDICAL HISTORY: Pertinent for severe COPD 20 to 30 years, coronary artery disease with coronary artery bypass graft at 50 years old and a followup is 68. He has atrial fibrillation, dyslipidemia, and chronic anticoagulation. PAST SURGICAL HISTORY: Includes hernia repair in the , which developed an abscess, which drained. Some of the mesh was removed. His wound is fortunately finally healed. CURRENT MEDICATIONS: 1. Budesonide inhalation twice a day. 2. Perforomist inhalation twice a day. 3. Ventolin HFA rescue inhaler two puffs q.4 hours p.r.n. 4. Eliquis 5 mg twice a day. 5. Fenofibrate 48 mg a day. 6. Furosemide 40 mg a day. 7. Lisinopril 2.5 mg twice a day. 8. Aspirin 81 mg a day. 9. Meclizine 25 mg t.i.d. p.r.n. 10. Isosorbide mononitrate 30 mg once a day. 11. vitamins. ALLERGIES: NO KNOWN DRUG ALLERGIES. PHYSICAL EXAMINATION: HEAD, EYES, EARS, NOSE, AND THROAT: Reveals pupils equal, round, and reactive. Extraocular movements are intact. Sclerae white. Tympanic membranes clear. Nose clear. Oral mucous membranes are wet. Dental hygiene is good. NECK: Supple without jugular venous distention, adenopathy, or thyromegaly. CHEST: Hyper-resonant with decreased coarse breath sounds and rhonchi. HEART: Irregular rate and rhythm, controlled. First and second heart sounds variable. No murmurs. ABDOMEN: Soft. Bowel sounds normal. No hepatosplenomegaly. No mass. No rebound. EXTREMITIES: Reveal no cyanosis, clubbing, or edema. PULSES: Carotid, radial, and femoral pulses diminished. Pedal pulses markedly diminished. SKIN: Warm and dry with ecchymoses on his forearms. HEME/LYMPH: No tender or swollen lymph nodes in axilla, inguinal, or cervical area. NEUROLOGIC: Cranial nerves 2 through 12 intact. Moves all extremities. Deep tendon reflexes symmetric. The patient is alert, oriented, calm, and pleasant. IMAGING STUDIES: EKG, atrial fibrillation with controlled ventricular response and incomplete right bundle branch block pattern with nonspecific ST-T abnormality, reviewed by me. Chest x-ray shows marked COPD without evidence of infiltrate, pneumothorax, reviewed by me. LABORATORY DATA: White count 7.9, hemoglobin 13.1, platelet count 172,000. Chemistries, comprehensive metabolic profile normal except for a BUN of 24, lactic acid is 3.2. Troponin 0.078. BNP is 357. ADMITTING DIAGNOSES: Acute on chronic respiratory failure with hypoxemia, chronic obstructive pulmonary disease exacerbation, cardiomyopathy, mild lactic acidosis, chronic atrial fibrillation, and chronic anticoagulation. The patient will be placed in the hospital. He will need at least 2 overnights with his chills and sweats, there is evidence of an infection to go along with his chronic obstructive pulmonary disease exacerbation. He will be on antibiotics IV. Blood cultures have been obtained. He will have DuoNebs routine q.6 hours, q.2 hours p.r.n. He will be placed on IV steroids, 20 mg of Solu-Medrol q.6 hours. He will be placed on Rocephin and Zithromax IV for pulmonary infection. He will require close observation during his hospital stay. His primary obedience trainer, Dr. Posada will be consulted during his hospital stay. Job ID: [id number]
[2018-11-05 13:43] VITALS: BMI 26.1
[2018-11-05 14:37] LABS: Lactic Acid 3.8 mmol/L (0.5-2.2)
[2018-11-05] MEDS: Azithromycin 500 MG in Sodium Chloride 0.9% 250 ML 250 ML IVPB SCH (15:04)
[2018-11-05] MEDS ORDERED: methylPREDNISolone Sod Succ 40 MG VIAL IVP SCH ×3 (18:00→19:45)
[2018-11-05] MEDS: Budesonide 0.25 MG/2 ML NEB NEB SCH (18:08)
--- NOTE | 2018-11-05 18:13 | PDOC.EVN ---
Event Note - Event Note Event Note: EKG unchanged, LVH witj repol abnormality. Trop also elevated in last similar admission. suspect combination of elevated trop secondary to renal failure+\_ demand ischemia from elevated BP
[2018-11-05] MEDS ORDERED: Furosemide 40 MG/4 ML VIAL SLOW IVP SCH (18:15)
[2018-11-05] MEDS ORDERED: Sodium Chloride 0.9% 10 ML ONE (18:19)
--- NOTE | 2018-11-05 18:27 | PDOC.EVN ---
Event Note - Event Note Event Note: more episodes sob, appearears to be tiring, BS not much changed. Move to cu for BIPAP
[2018-11-05] MEDS ORDERED: Budesonide 0.5 MG/2 ML NEB INH SCH (18:30)
[2018-11-05] MEDS ORDERED: Magnesium 2 GM/NS 0.9% 100 ML 2 GM in Premix Bag 1 BAG IVPB SCH (18:45)
--- NOTE | 2018-11-05 19:39 | CON ---
DATE OF CONSULTATION: 11/05/2018 HISTORY OF PRESENT ILLNESS: Harrison Israel is an 83-year-old gentleman who sees Dr. Posada, presented to the hospital with marked shortness of breath, unable to get any air. At 6:30 in the morning, came to the hospital with marked wheezing. His sats in the ER were 96% on room air. On most days, he can barely walk even 50 feet without getting markedly short of breath. He has low-flow O2. He denies any chest pain, chills, or sweats. He was found to be in atrial fibrillation, COPD exacerbation. He has echocardiogram done about 6 months ago, which showed that his EF was decreased. The patient is still smoking. PAST MEDICAL HISTORY: Atrial fibrillation, hypertension, sleep apnea, coronary artery disease, and anxiety. PREVIOUS SURGERIES: Hernia surgery, knee surgery, bypass surgery, and foot operation. SOCIAL HISTORY: No alcohol abuse. HOME MEDICATIONS: Include: 1. Lasix 40 twice a day. 2. Prednisone 20. 3. Amlodipine. 4. Zestril 2.5. 5. . 6. Aspirin 81. 7. Eliquis 5. 8. Albuterol. REVIEW OF SYSTEMS: Otherwise unremarkable. PHYSICAL EXAMINATION: GENERAL: He is clearly having respiratory distress. VITAL SIGNS: Respiratory rate is 30, sats are 98% on 2 L, temperature 97, pulse 98 and irregular, and blood pressure 143/60. CHEST: Diffuse wheezing, prolonged expiration. CARDIAC: Atrial fibrillation. ABDOMEN: Soft. NEUROLOGIC: He is awake, responsive. LABORATORY DATA: Unremarkable. Chest x-ray showed no acute infiltrates. Lactic acid is mildly elevated at 3.8. White count 7000. BNP 357. IMPRESSION: 1. Acute on chronic respiratory failure, chronic obstructive pulmonary disease exacerbation. 2. Coronary artery disease, history of coronary artery bypass grafting, congestive heart failure, cardiomyopathy. Agree with BiPAP. Transferred to a monitored bed. Steroids, neb treatment, magnesium initiated. We will follow and notify Dr. Posada. This is a consultation note, 70 minutes, 50% direct patient care Job ID: [id number]
[2018-11-05] MEDS ORDERED: Magnesium 2 GM/50 ML 2 GM in Premix Bag 1 BAG IVPB SCH (19:45)
[2018-11-05] MEDS: Lisinopril 2.5 MG TAB PO SCH (21:54)
[2018-11-05] MEDS: Apixaban 5 MG TAB PO SCH (21:54)
[2018-11-06] MEDS: methylPREDNISolone Sod Succ 40 MG VIAL IVP SCH ×4 (01:07→21:00)
[2018-11-06 04:16] LABS: #Lymphocytes 0.8 thou/uL (1.20-3.40); #Monocytes 0.2 thou/uL (0.11-0.59); #Neutrophils 7.2 thou/uL (1.40-6.50); %Eosinophils 0.1 % (0.0-10.0); %Lymphocytes 9.5 % (21.0-51.0); %Monocytes 2.5 % (0.0-10.0); %Neutrophils 87.9 % (42.0-75.0); Hemoglobin 12.8 g/dL (14.0-18.0); Mean Corpuscular HGB CONC 31.2 g/dL (32.0-36.0); Mean Corpuscular Hemoglobin 29.9 pg (27.0-31.0); Mean Corpuscular Volume 95.8 fL (78.0-98.0); Mean Platelet Volume 7.4 fL (7.4-10.4); Platelet Count 151 thou/uL (130-400); RBC Distribution Width 12.2 % (11.5-14.5); Red Blood Cell (RBC) Count 4.28 mill/uL (4.70-6.10); White Blood Cell (WBC) Count 8.2 thou/uL (4.8-10.8)
[2018-11-06 04:38] LABS: Anion Gap 14 mmol/L (10-20); BUN (Urea Nitrogen) 28 mg/dL (8.4-25.7); Calc. Creatinine Clearance 62 mL/min (70-130); Calcium 9.1 mg/dL (7.8-10.44); Carbon Dioxide 23 mmol/L (23-31); Chloride 109 mmol/L (98-107); Estimated GFR-MDRD 74; Glucose 157 mg/dL (83-110); Potassium 4.9 mmol/L (3.5-5.1); Sodium 141 mmol/L (136-145)
[2018-11-06] MEDS: Budesonide 0.25 MG/2 ML NEB NEB SCH ×2 (07:33→18:39)
[2018-11-06] MEDS: Lisinopril 2.5 MG TAB PO SCH ×2 (07:58→21:00)
[2018-11-06] MEDS: Aspirin 81 mg Enteric Coated Tablet PO SCH (07:58)
[2018-11-06] MEDS: Apixaban 5 MG TAB PO SCH ×2 (07:58→21:00)
[2018-11-06] MEDS: Fenofibrate 48 MG TAB PO SCH (07:58)
[2018-11-06] MEDS: Mometasone/Formoterol 120 PUFF INHALER INH SCH ×2 (07:59→18:45)
[2018-11-06] MEDS: Furosemide 40 MG TAB PO SCH (07:59)
--- NOTE | 2018-11-06 11:24 | PDOC.PN ---
- Subjective Encounter Start Date: 11/06/18 Encounter Start Time: 10:10 -: old records requested/rev Patient seen and examined. No new complaints. No overnight events - Objective Resuscitation Status - Order Detail: 11/05/18 12:15 Resuscitation Status Routine Resuscitation Status: DNAR: NO Resuscitation Discussed with: Lenora NICHOLAS Reviewed: Yes Vital Signs & Weight: Vital Signs (12 hours) Temp Pulse Resp BP Pulse Ox 11/06/18 10:51 97.7 F 11/06/18 08:00 94 L 11/06/18 07:58 73 124/68 11/06/18 07:33 73 17 94 L 11/06/18 07:14 97.9 F 11/06/18 03:53 97.9 F 11/06/18 00:29 73 16 94 L 11/06/18 00:00 97.8 F Weight Weight 171 lb 12.8 oz Most Recent Monitor Data Heart Rate from ECG 82 NIBP 113/60 NIBP BP-Mean 77 Respiration from ECG 29 SpO2 93 I&O: 11/05/18 11/06/18 11/07/18 06:59 06:59 06:59 Intake Total 120 Output Total 900 Balance -780 Result Diagrams: 11/06/18 03:40 11/06/18 03:40 EKG Reviewed by me: Yes Phys Exam - Physical Examination Constitutional: NAD HEENT: PERRLA, moist MMs, sclera anicteric Neck: no JVD, supple reduced air entry Cardiovascular: RRR, no significant murmur, no rub Gastrointestinal: soft, non-tender, no distention, positive bowel sounds Musculoskeletal: no edema, pulses present Neurological: non-focal, normal sensation Lymphatic: no nodes Psychiatric: normal affect, A&O x 3 Skin: no rash, normal turgor Dx/Plan (1) Acute and chronic respiratory failure with hypoxia Code(s): J96.21 - ACUTE AND CHRONIC RESPIRATORY FAILURE WITH HYPOXIA Status: Acute Comment: improving.. (2) COPD exacerbation Code(s): J44.1 - CHRONIC OBSTRUCTIVE PULMONARY DISEASE W (ACUTE) EXACERBATION Status: Acute (3) Lactic acidosis Code(s): E87.2 - ACIDOSIS Status: Acute (4) Type [address] elevation Code(s): I21.A1 - MYOCARDIAL INFARCTION TYPE 2 Status: Acute (5) A-fib Code(s): I48.91 - UNSPECIFIED ATRIAL FIBRILLATION Status: Chronic Qualifiers: Comment: stable.. (6) Anticoagulant long-term use Code(s): Z79.01 - SENIOR LICENSING MANAGER (CURRENT) USE OF ANTICOAGULANTS Status: Chronic (7) CAD (coronary artery disease) Code(s): I25.10 - ATHSCL HEART DISEASE OF [place] CORONARY ARTERY W/O ANG PCTRS Status: Chronic Qualifiers: (8) Chronic systolic heart failure, ACC/AHA stage C Code(s): I50.22 - CHRONIC SYSTOLIC (CONGESTIVE) HEART FAILURE Status: Chronic (9) Dyslipidemia Code(s): E78.5 - HYPERLIPIDEMIA, UNSPECIFIED Status: Chronic (10) HTN (hypertension) Code(s): I10 - ESSENTIAL (PRIMARY) HYPERTENSION Status: Chronic Qualifiers: - Plan cont current plan of care * medication reviewed as below * symptomatic treatment * now off bipap * will monitor * pulmonary following * continue current optimum medical therapy for copd. Review of Systems - Review of Systems ENT: negative: Ear Pain, Ear Discharge, Nose Pain, Nose Discharge, Nose Congestion, Mouth Pain, Mouth Swelling, Throat Pain, Throat Swelling, Other Respiratory: Shortness of Breath, SOB with Excertion. negative: Cough, Dry, Hemoptysis, Pleuritic Pain, Sputum, Wheezing Cardiovascular: negative: chest pain, palpitations, orthopnea, paroxysmal nocturnal dyspnea, edema, light headedness, other Gastrointestinal: negative: Nausea, Vomiting, Abdominal Pain, Diarrhea, Constipation, Melena, Hematochezia, Other Genitourinary: negative: Dysuria, Frequency, Incontinence, Hematuria, Retention , Other Musculoskeletal: negative: Neck Pain, Shoulder Pain, Arm Pain, Back Pain, Hand Pain, Leg Pain, Foot Pain, Other - Medications/Allergies Allergies/Adverse Reactions: Allergies Allergy/AdvReac Type Severity Reaction Status Date / Time adhesive AdvReac Verified 02/07/18 16:57 Medications: Current Medications Acetaminophen (Tylenol) 650 mg PO Q4H PRN PRN Reason: Headache/Fever/Mild Pain (1-3) Albuterol/Ipratropium (Duoneb) 3 ml NEB [id number] [facility] Last Admin: 11/06/18 07:35 Dose: 3 ml Albuterol/Ipratropium (Duoneb) 3 ml NEB [id number] PRN PRN Reason: SOB &/or Wheezing Apixaban (Eliquis) 5 mg PO BID [facility] Last Admin: 11/06/18 07:58 Dose: 5 mg Aspirin (Ecotrin) 81 mg PO DAILY [facility] Last Admin: 11/06/18 07:58 Dose: 81 mg Budesonide (Pulmicort Neb Solution) 0.25 mg NEB BID-RT [facility] Last Admin: 11/06/18 07:33 Dose: 0.25 mg Fenofibrate (Tricor) 48 mg PO DAILY [facility] Last Admin: 11/06/18 07:58 Dose: 48 mg Furosemide (Lasix) 40 mg PO DAILY [facility] Last Admin: 11/06/18 07:59 Dose: 40 mg Azithromycin 500 mg/ Sodium (Chloride) 250 mls @ 250 mls/hr IVPB 1300 [facility] Last Admin: 11/05/18 15:04 Dose: 250 mls Ceftriaxone Sodium 1 gm/ (Sodium Chloride) 100 mls @ 200 mls/hr IVPB 1200 [facility] Diltiazem HCl 125 mg/Miscellaneous Medication 1 each/ Sodium Chloride 125 mls @ 5 mls/hr IVPB INF [facility]; Protocol Last Admin: 11/05/18 15:13 Dose: 125 mls Isosorbide Mononitrate (Imdur) 60 mg PO DAILY [facility] Last Admin: 11/06/18 07:59 Dose: 60 mg Lisinopril (Zestril) 2.5 mg PO BID [facility] Last Admin: 11/06/18 07:58 Dose: 2.5 mg Methylprednisolone Sodium Succinate (Solu-Medrol) 40 mg IVP Q6HR [facility] Last Admin: 11/06/18 07:23 Dose: 40 mg Mometasone Furoate/Formoterol Fumar (Dulera 200 Mcg/5 Mcg Inhaler) 2 puff INH BID-RT [facility] Last Admin: 11/06/18 07:59 Dose: Not Given Ondansetron HCl (Zofran Odt) 4 mg PO Q6H PRN PRN Reason: Nausea/Vomiting
[2018-11-06] MEDS: cefTRIAXone\\ROCEPHIN 1 GM in Sodium Chloride 0.9% 100 ML IVPB SCH (11:33)
[2018-11-06] MEDS: Azithromycin 500 MG in Sodium Chloride 0.9% 250 ML 250 ML IVPB SCH (12:49)
--- NOTE | 2018-11-06 15:45 | PRG ---
DATE OF SERVICE: 11/06/2018 SERVICE: Pulmonary Medicine. INTERVAL HISTORY: Overnight, the patient had a respiratory event and rapid down to the IMCU and started on noninvasive ventilation. He denies any current fevers or chills. This morning, he got a break off the BiPAP. He was able to tolerate breakfast as well as lunch. He has increasing work of breathing, particularly with conversation. PHYSICAL EXAMINATION: VITAL SIGNS: Afebrile, pulse 96, blood pressure 125/67, respirations 25, and saturation 93% on 3L nasal cannula. GENERAL: The patient is awake and alert, in no apparent distress. LUNGS: Reduced air entry in a prolonged expiratory phase. Polyphonic wheezing as well as rhonchi are present. No crackles are appreciated. HEART: Normal rate and regular. ABDOMEN: Soft, nontender, and nondistended. Bowel sounds are positive. MUSCULOSKELETAL: No cyanosis or clubbing. No pitting in the bilateral lower extremities. NEUROLOGIC: Grossly nonfocal. LABORATORY DATA: WBC 8.2, hemoglobin 12.8, and platelets 151,000. D-dimer 0.6. Basic metabolic profile is otherwise unremarkable. Creatinine 0.97. Troponin is gently up trending to 0.15. Blood cultures x2 are unremarkable. IMAGING STUDIES: Chest x-ray demonstrates interstitial fullness, flattening of the diaphragm, hyperexpanded lungs, and mild pulmonary vascular congestion. Cardiac silhouette is enlarged, though this is a portable film. ASSESSMENT: 1. Kfezf-qv-rrazpah hypoxic respiratory failure. 2. Chronic obstructive pulmonary disease with acute exacerbation. 3. Lbd-VU-nkmosdksr myocardial infarction secondary to its demand. 4. Chronic systolic heart failure. 5. Atrial fibrillation, permanent. DISCUSSION AND PLAN: We will keep him euvolemia. We will continue our nebulized medications, antibiotics, and steroids directed at COPD exacerbation. He will need to remain in the ICU. Towards the end of the hospital stay, I will check an ABG to see whether or not he has resting hypercapnia. If he does, BiPAP and/or noninvasive ventilation will be set up in the outpatient setting. Job ID: [id number]
[2018-11-07] MEDS: Budesonide 0.25 MG/2 ML NEB NEB SCH ×2 (07:19→18:39)
[2018-11-07] MEDS: Mometasone/Formoterol 120 PUFF INHALER INH SCH ×2 (07:33→19:01)
[2018-11-07] MEDS: Lisinopril 2.5 MG TAB PO SCH ×2 (09:05→21:16)
[2018-11-07] MEDS: Furosemide 40 MG TAB PO SCH (09:06)
[2018-11-07] MEDS: methylPREDNISolone Sod Succ 40 MG VIAL IVP SCH ×2 (09:06→21:17)
[2018-11-07] MEDS: Aspirin 81 mg Enteric Coated Tablet PO SCH (09:06)
[2018-11-07] MEDS: Apixaban 5 MG TAB PO SCH ×2 (09:06→21:16)
[2018-11-07] MEDS: Fenofibrate 48 MG TAB PO SCH (09:06)
--- NOTE | 2018-11-07 10:16 | PRG ---
DATE OF SERVICE: 11/07/2018 SERVICE: Pulmonary Medicine. INTERVAL HISTORY: The patient is doing much better overnight. He did sleep with a CPAP. He got better rest. He denies any current fevers, chills, cough, nausea , or vomiting. He is talking in full sentences today with minimal accessory muscle use. He is no longer having conversational dyspnea and indicates that his breathing has much improved. PHYSICAL EXAMINATION: VITAL SIGNS: Afebrile. Pulse 88, blood pressure 140/74, respirations 16, and saturation 95% on 2.5 L nasal cannula. GENERAL: The patient is awake and alert, in no apparent distress. LUNGS: Much better air entry today. He has a prolonged expiratory phase. With forced exhalation, wheezing is present, but on tidal respirations, I hear no adventitious sounds. HEART: Normal rate, regular. ABDOMEN: Soft, nontender, and nondistended. Bowel sounds are positive. MUSCULOSKELETAL: No cyanosis or clubbing. No pitting in the bilateral lower extremities. NEUROLOGIC: Grossly nonfocal. LABORATORY DATA: WBC 8.2, hemoglobin 12.8, platelets 151,000. Creatinine 0.97. Basic metabolic profile is otherwise unremarkable. BNP 357, which is above baseline. Blood cultures x2 are negative. ASSESSMENT: 1. Acute on chronic hypoxic respiratory failure. 2. Chronic obstructive pulmonary disease with acute exacerbation. 3. Acute on chronic systolic heart failure, returned to euvolemia. 4. Atrial fibrillation, permanent. 5. Mpi-PW-mcsmktoxm myocardial infarction secondary to demand. 6. Obstructive sleep apnea, previously not able to tolerate CPAP therapy. DISCUSSION AND PLAN: The patient is doing fine from respiratory standpoint. We will continue our nebulized medications, antibiotics, and steroids. He will need to stay in IMCU for one more day. If he does not require BiPAP over the next 12 to 24 hours, he could be considered for transition to the medical unit. We may need to reinvestigate his known sleep apnea in the outpatient setting as he is not currently on any noninvasive therapy. Job ID: [id number] [facility]
[2018-11-07] MEDS: cefTRIAXone\\ROCEPHIN 1 GM in Sodium Chloride 0.9% 100 ML IVPB SCH (12:15)
[2018-11-07] MEDS: Azithromycin 500 MG in Sodium Chloride 0.9% 250 ML 250 ML IVPB SCH (12:34)
[2018-11-08] MEDS: Mometasone/Formoterol 120 PUFF INHALER INH SCH ×2 (07:34→18:16)
[2018-11-08] MEDS: Budesonide 0.25 MG/2 ML NEB NEB SCH ×2 (07:34→18:15)
[2018-11-08] MEDS: Fenofibrate 48 MG TAB PO SCH (09:13)
[2018-11-08] MEDS: Apixaban 5 MG TAB PO SCH ×2 (09:13→20:45)
[2018-11-08] MEDS: Aspirin 81 mg Enteric Coated Tablet PO SCH (09:13)
[2018-11-08] MEDS: Lisinopril 2.5 MG TAB PO SCH ×2 (09:13→20:44)
[2018-11-08] MEDS: Furosemide 40 MG TAB PO SCH (09:13)
[2018-11-08] MEDS: methylPREDNISolone Sod Succ 40 MG VIAL IVP SCH ×2 (09:14→20:45)
--- NOTE | 2018-11-08 10:39 | PRG ---
DATE OF SERVICE: 11/08/2018 SERVICE: Pulmonary Medicine. INTERVAL HISTORY: The patient is doing well from a cardiovascular and respiratory standpoint. He is breathing comfortably. He has no complaints of chest pain, fevers, chills, nausea, vomiting, or diarrhea. His breathing is much improved. He did not require using the BiPAP last night. PHYSICAL EXAMINATION: VITAL SIGNS: Afebrile. Pulse 82, blood pressure 125/75, respirations 19, and saturation 99% on 2 L nasal cannula. GENERAL: The patient is awake and alert, in no apparent distress. LUNGS: Much improved air entry. There is a prolonged expiratory phase with polyphonic wheezing present. HEART: Normal rate, regular. ABDOMEN: Soft, nontender, nondistended. Bowel sounds are positive. MUSCULOSKELETAL: No cyanosis or clubbing. No pitting in the bilateral lower extremities. NEUROLOGIC: Grossly nonfocal. LABORATORY DATA: WBC 8.2, hemoglobin 12.8, platelets 151,000. Blood cultures are negative x2. ASSESSMENT: 1. Rzzhc-ee-mudxxou hypoxic respiratory failure. 2. Chronic obstructive pulmonary disease with acute exacerbation. 3. Mywws-ju-mpnwbgm systolic heart failure, returned to euvolemia. 4. Atrial fibrillation, permanent. 5. Ckr-RM-dvxemwzcr myocardial infarction secondary to demand. 6. Obstructive sleep apnea, previously not able to tolerate CPAP therapy. DISCUSSION AND PLAN: The patient is doing really well from respiratory standpoint. We will continue our interventions including antibiotics, nebulized medications , and steroids. We will continue diuresing him until he returns to euvolemia. At this point, he is stable for transition to the medical unit. Pulmonary will follow while he remains inhouse for the time being, but if he is doing well by tomorrow, he will likely be stable for transition to home. Job ID: [id number] [facility]
--- NOTE | 2018-11-08 11:33 | PDOC.PN ---
- Subjective Encounter Start Date: 11/08/18 Encounter Start Time: 10:00 -: old records requested/rev pt is feeling better, less dyspnea, less cough Patient seen and examined. No new complaints. No overnight events - Objective Resuscitation Status - Order Detail: 11/05/18 12:15 Resuscitation Status Routine Resuscitation Status: DNAR: NO Resuscitation Discussed with: Lenora NICHOLAS Reviewed: Yes Vital Signs & Weight: Vital Signs (12 hours) Temp Pulse Resp BP Pulse Ox 11/08/18 09:13 78 117/66 11/08/18 08:00 100 11/08/18 07:33 80 25 H 98 11/08/18 07:21 97.5 F L 11/08/18 03:13 97.4 F L 11/08/18 00:00 76 21 H 100 Weight Weight 171 lb 12.8 oz Most Recent Monitor Data Heart Rate from ECG 73 NIBP 116/60 NIBP BP-Mean 78 Respiration from ECG 20 SpO2 98 I&O: 11/07/18 11/08/18 11/09/18 06:59 06:59 06:59 Intake Total 240 1820 Output Total 600 1950 Balance -360 -130 Result Diagrams: 11/06/18 03:40 11/06/18 03:40 EKG Reviewed by me: Yes (nsr) Phys Exam - Physical Examination Constitutional: NAD HEENT: PERRLA, moist MMs, sclera anicteric Neck: no JVD, supple Respiratory: no wheezing, no rales, no rhonchi reduced air entry Cardiovascular: no significant murmur, no rub, irregular Gastrointestinal: soft, non-tender, no distention, positive bowel sounds Musculoskeletal: no edema, pulses present Neurological: non-focal, normal sensation Lymphatic: no nodes Psychiatric: normal affect, A&O x 3 Skin: no rash, normal turgor Dx/Plan (1) Acute and chronic respiratory failure with hypoxia Code(s): J96.21 - ACUTE AND CHRONIC RESPIRATORY FAILURE WITH HYPOXIA Status: Acute Comment: improving.. (2) COPD exacerbation Code(s): J44.1 - CHRONIC OBSTRUCTIVE PULMONARY DISEASE W (ACUTE) EXACERBATION Status: Acute (3) Lactic acidosis Code(s): E87.2 - ACIDOSIS Status: Acute (4) Type [address] elevation Code(s): I21.A1 - MYOCARDIAL INFARCTION TYPE 2 Status: Acute (5) A-fib Code(s): I48.91 - UNSPECIFIED ATRIAL FIBRILLATION Status: Chronic Qualifiers: Comment: stable.. (6) Anticoagulant long-term use Code(s): Z79.01 - ASSISTED (CURRENT) USE OF ANTICOAGULANTS Status: Chronic (7) CAD (coronary artery disease) Code(s): I25.10 - ATHSCL HEART DISEASE OF [place] CORONARY ARTERY W/O ANG PCTRS Status: Chronic Qualifiers: (8) Chronic systolic heart failure, ACC/AHA stage C Code(s): I50.22 - CHRONIC SYSTOLIC (CONGESTIVE) HEART FAILURE Status: Chronic (9) Dyslipidemia Code(s): E78.5 - HYPERLIPIDEMIA, UNSPECIFIED Status: Chronic (10) HTN (hypertension) Code(s): I10 - ESSENTIAL (PRIMARY) HYPERTENSION Status: Chronic Qualifiers: - Plan cont current plan of care, continue antibiotics, respiratory therapy * today plan for transfer to [place] * medication reviewed as below * symptomatic treatment * start PT/OT * continue respiratory therapy * pulmonary recommendation appreciated. Review of Systems - Review of Systems ENT: negative: Ear Pain, Ear Discharge, Nose Pain, Nose Discharge, Nose Congestion, Mouth Pain, Mouth Swelling, Throat Pain, Throat Swelling, Other Respiratory: Cough, Shortness of Breath, SOB with Excertion. negative: Dry, Hemoptysis, Pleuritic Pain, Sputum, Wheezing Cardiovascular: negative: chest pain, palpitations, orthopnea, paroxysmal nocturnal dyspnea, edema, light headedness, other Gastrointestinal: negative: Nausea, Vomiting, Abdominal Pain, Diarrhea, Constipation, Melena, Hematochezia, Other Genitourinary: negative: Dysuria, Frequency, Incontinence, Hematuria, Retention , Other Musculoskeletal: negative: Neck Pain, Shoulder Pain, Arm Pain, Back Pain, Hand Pain, Leg Pain, Foot Pain, Other Skin: negative: Rash, Lesions, Enrique, Bruising, Other - Medications/Allergies Allergies/Adverse Reactions: Allergies Allergy/AdvReac Type Severity Reaction Status Date / Time adhesive AdvReac Verified 02/07/18 16:57 Medications: Current Medications Acetaminophen (Tylenol) 650 mg PO Q4H PRN PRN Reason: Headache/Fever/Mild Pain (1-3) Albuterol/Ipratropium (Duoneb) 3 ml NEB [id number] [facility] Last Admin: 11/08/18 07:33 Dose: 3 ml Albuterol/Ipratropium (Duoneb) 3 ml NEB [id number] PRN PRN Reason: SOB &/or Wheezing Apixaban (Eliquis) 5 mg PO BID [facility] Last Admin: 11/08/18 09:13 Dose: 5 mg Aspirin (Ecotrin) 81 mg PO DAILY [facility] Last Admin: 11/08/18 09:13 Dose: 81 mg Azithromycin (Zithromax) 500 mg PO 1300 [facility] Budesonide (Pulmicort Neb Solution) 0.25 mg NEB BID-RT [facility] Last Admin: 11/08/18 07:34 Dose: 0.25 mg Fenofibrate (Tricor) 48 mg PO DAILY [facility] Last Admin: 11/08/18 09:13 Dose: 48 mg Furosemide (Lasix) 40 mg PO DAILY [facility] Last Admin: 11/08/18 09:13 Dose: 40 mg Ceftriaxone Sodium 1 gm/ (Sodium Chloride) 100 mls @ 200 mls/hr IVPB 1200 [facility] Last Admin: 11/07/18 12:15 Dose: 100 mls Diltiazem HCl 125 mg/Miscellaneous Medication 1 each/ Sodium Chloride 125 mls @ 5 mls/hr IVPB INF [facility]; Protocol Last Admin: 11/05/18 15:13 Dose: 125 mls Isosorbide Mononitrate (Imdur) 60 mg PO DAILY [facility] Last Admin: 11/08/18 09:13 Dose: 60 mg Lisinopril (Zestril) 2.5 mg PO BID [facility] Last Admin: 11/08/18 09:13 Dose: 2.5 mg Methylprednisolone Sodium Succinate (Solu-Medrol) 40 mg IVP Q12HR [facility] Last Admin: 11/08/18 09:14 Dose: 40 mg Mometasone Furoate/Formoterol Fumar (Dulera 200 Mcg/5 Mcg Inhaler) 2 puff INH BID-RT [facility] Last Admin: 11/08/18 07:34 Dose: 2 puff Ondansetron HCl (Zofran Odt) 4 mg PO Q6H PRN PRN Reason: Nausea/Vomiting
[2018-11-08] MEDS: cefTRIAXone\\ROCEPHIN 1 GM in Sodium Chloride 0.9% 100 ML IVPB SCH (11:45)
[2018-11-08] MEDS: Azithromycin 250 MG TAB PO SCH (12:01)
[2018-11-09] MEDS: Budesonide 0.25 MG/2 ML NEB NEB SCH (07:30)
[2018-11-09] MEDS: Mometasone/Formoterol 120 PUFF INHALER INH SCH (07:30)
[2018-11-09] MEDS: methylPREDNISolone Sod Succ 40 MG VIAL IVP SCH (08:52)
[2018-11-09] MEDS: Fenofibrate 48 MG TAB PO SCH (08:52)
[2018-11-09] MEDS: Lisinopril 2.5 MG TAB PO SCH (08:53)
[2018-11-09] MEDS: Furosemide 40 MG TAB PO SCH (08:53)
[2018-11-09] MEDS: Apixaban 5 MG TAB PO SCH (08:53)
[2018-11-09] MEDS: Aspirin 81 mg Enteric Coated Tablet PO SCH (08:54)
[2018-11-09 08:59] VITALS: BP 120/64
--- NOTE | 2018-11-09 10:58 | PDOC.EVN ---
Event Note - Event Note Event Note: DC SUMMARY #[id number]
[2018-11-09] MEDS: cefTRIAXone\\ROCEPHIN 1 GM in Sodium Chloride 0.9% 100 ML IVPB SCH (11:02)
[2018-11-09] MEDS: Azithromycin 250 MG TAB PO SCH (11:02)
[2018-11-09 11:30] VITALS: TEMP 97.1
--- NOTE | 2018-11-09 12:59 | PRG ---
DATE OF SERVICE: 11/09/2018 SERVICE: Pulmonary Medicine. INTERVAL HISTORY: The patient indicates his breathing is much improved. He denies any current chest pain or fevers or chills. He is off his BiPAP overnight. He did not have any overnight events. Nursing reports no events. PHYSICAL EXAMINATION: VITAL SIGNS: Afebrile, pulse 69, blood pressure 141/66, respirations 17, and saturation 94% on room air. GENERAL: The patient is awake and alert, in no apparent distress. LUNGS: Much improved air entry. There is a prolonged expiratory phase, but no longer any wheezing or crackles. HEART: Normal rate. Regular. ABDOMEN: Soft, nontender, and nondistended. Bowel sounds are positive. MUSCULOSKELETAL: No cyanosis or clubbing. There is no pitting in the bilateral lower extremities. NEUROLOGIC: Grossly nonfocal. ASSESSMENT: 1. Acute on chronic hypoxic respiratory failure. 2. Chronic obstructive pulmonary disease with acute exacerbation. 3. Acute on chronic systolic and diastolic heart failure, currently returned to euvolemia. 4. Atrial fibrillation. 5. Non-ST elevation myocardial infarction secondary to demand. 6. Obstructive sleep apnea, previously not able to tolerate continuous positive airway pressure therapy. DISCUSSION AND PLAN: The patient is doing outstanding from respiratory standpoint. He is ready for discharge from the hospital. I will see him in clinic as previously directed. He will need additional five days of steroids, which he already has available at home. He will need two more days of antibiotics. Job ID: [id number]
--- NOTE | 2018-11-10 03:52 | DIS ---
DATE OF ADMISSION: 11/05/2018 DATE OF DISCHARGE: 11/09/2018 ADMITTING DIAGNOSES: Acute chronic obstructive pulmonary disease exacerbation, paroxysmal atrial fibrillation, respiratory failure, and shortness of breath. DISCHARGE DIAGNOSES: Chronic obstructive pulmonary disease exacerbation, resolved; respiratory failure, stable; atrial fibrillation, stable; shortness of breath, resolved. HOSPITAL COURSE: This is an 83-year-old male, admitted to Internal Medicine Team, was also followed very closely by Pulmonary, started on steroids for shortness of breath, exacerbation of COPD, had antibiotics given. The patient was observed for about a period of 4-day trial. Upon the time of discharge, the patient stated that he felt stable. Denied any nausea, vomiting, diarrhea, constipation, chest pain, fevers, or shortness of breath. Stated that he felt that he was back to his baseline normal. He also stated that he felt ready to go home. The patient states that he uses home oxygen while sleeping, however, not while working. The patient was advised to use home oxygen at this point in time, 02/01, especially when he is feeling shortness of breath. Advised also to follow up with his PCP and Pulmonary within 1 week for further management and care. The patient was to resume his home dose of prednisone 20 mg daily and take Keflex 500 mg p.o. twice a day for about 5 days. The patient was to consider tapering down the steroids at the supervision of the [facility] outpatient. The patient upon the time of discharge was stable. Case and plan discussed with the patient at length. He understood and agreed to this plan. DISPOSITION: Home. FOLLOWUP: Follow up with PCP and Pulmonary within 1 week. CONDITION: Stable. PROGNOSIS: Good. MEDICATIONS: See MAR. ACTIVITY: As tolerated with assistance as needed. DIET: Low-fat, low-calorie, high-fiber diet. Case and plan were again discussed with the patient at length. He understood and agreed to this plan. Job ID: [id number]
== END 2018-11-09 12:30 | disposition home or self-care (01) | DRG 280 ==
LOC: ERS 08:50 → 2NO 12:14 → IMCU/EMU 19:25
PROVIDERS: ADMIT Internal Medicine; ATTEND Internal Medicine
DX: I11.0 Hypertensive heart disease with heart failure (principal); J96.21 Acute and chronic respiratory failure with hypoxia; I21.A1 Myocardial infarction type 2; J44.1 Chronic obstructive pulmonary disease with (acute) exacerbation; E87.2 Acidosis; I50.23 Acute on chronic systolic (congestive) heart failure; I42.9 Cardiomyopathy, unspecified; G47.33 Obstructive sleep apnea (adult) (pediatric); F41.9 Anxiety disorder, unspecified; Z66 Do not resuscitate; F17.210 Nicotine dependence, cigarettes, uncomplicated; I25.10 Atherosclerotic heart disease of native coronary artery without angina pectoris; I48.2 Chronic atrial fibrillation; E78.00 Pure hypercholesterolemia, unspecified; Z79.01 Long term (current) use of anticoagulants; Z95.1 Presence of aortocoronary bypass graft; Z79.51 Long term (current) use of inhaled steroids; Z79.82 Long term (current) use of aspirin; Z79.899 Other long term (current) drug therapy
CPT/HCPCS: 36415; 36416; 71045; 80048; 80053; 82553; 83605; 83880; 84484; 85025; 85379; 87040; 93005; 93010; 94640; 94660; 94760; 96361; 96365; J0456; J0696; J1940; J2920; J3475; J3490; J7050; J7620; J7626

== ENCOUNTER 2019-04-05 13:52 | Inpatient (IN) | payer MEDICARE ==
--- NOTE | 2019-04-05 14:53 | RAD ---
FRONTAL VIEW OF CHEST: Date: 04/05/19 COMPARISON: 11/05/18. CLINICAL INDICATION: Preoperative evaluation. FINDINGS: There are linear densities of the lungs bilaterally, predominantly perihilar in distribution, which m ay be on the basis of edema, given enlargement of cardiac silhouette, and prominence of pulmonary vas culature. Mild hazy density at the left lung base may be related to component of atelectasis, althoug h retrocardiac left lower lobe pneumonia and pleural fluid not entirely excluded on the basis of this exam. Evidence of prior sternotomy. Extrinsic artifact limits detail. IMPRESSION: Findings favor fluid overload. Superimposed left basilar opacity, as above. POS: C
--- NOTE | 2019-04-05 15:00 | RAD ---
AP PELVIS: HISTORY: Preoperative dilation for hip fracture. FINDINGS: Degenerative changes are seen in the hip joints bilaterally, left greater than right. No definite fra cture or dislocation is seen. If there is a high clinical suspicion for a hip fracture, dedicated MRI would be helpful.
[2019-04-05 15:07] LABS: INR-International Normal Ratio 1.4; Prothrombin Time 16.9 SEC (12.0-14.7)
--- NOTE | 2019-04-05 16:52 | HP ---
This is Tony Oakes PA-C dictating a report for Wander Seymour MD. REQUESTING PHYSICIAN: Dr. Briana Cole. CONSULTATIONS: Orthopedics, Dr. Carbone. HISTORY OF PRESENT ILLNESS: The patient is an 84-year-old man, who was transferred here from [place] with a left hip pain with suspected femoral neck fracture. The patient last night was working with horses when one got spooked and ran over him. He had left-sided hip pain that progressively gotten worse all day. He has taken himself to the emergency department in [place], where he underwent evaluation, examination, plain radiographs and CT of his left hip that were suspicious for femoral neck fracture. He was transferred to our facility to undergo evaluation and orthopedic consultation. His radiographs were reviewed by Dr. Carbone and felt that it was unclear as to whether he had an actual fracture, so he asked for an MRI. Of note, the patient is on Eliquis for his atrial fibrillation, so he would not be a surgical candidate until Monday regardless. The patient denied loss of consciousness. ALLERGIES: NONE. CURRENT MEDICATIONS: 1. Ventolin. 2. Eliquis. 3. Fenofibrate. 4. Furosemide. 5. Lisinopril. 6. Aspirin. 7. Budesonide. 8. Isosorbide. 9. Amoxicillin. PAST MEDICAL HISTORY: BPH, coronary artery disease, COPD, hypertension, atrial fibrillation, osteoarthritis, kidney stones. PAST SURGICAL HISTORY: CABG x5, inguinal hernia repair x2, kidney stone removal, left foot toe amputation. SOCIAL HISTORY: The patient drinks "socially" possibly once every week or two. Denies drug use. Smokes cigars. Lives at home with family. REVIEW OF SYSTEMS: 10-point review of systems is negative unless otherwise stated. PHYSICAL EXAMINATION: VITAL SIGNS: Blood pressure 117/62, heart rate 68, respirations 18, oxygen saturation 97% on 2 L via nasal cannula, and temperature is 97.9. GENERAL: The patient is resting comfortably in bed. He is awake, alert, and oriented x3. Linda Coma Scale is 15. HEENT. Head is normocephalic atraumatic. Eyes, extraocular motion intact. PERRLA bilaterally. Ears are atraumatic without discharge. Nose atraumatic without discharge. Oropharynx is clear. NECK: Nontender trachea is midline. No JVD. CHEST: Clear to auscultation with good inspiratory and expiratory effort. HEART: Regular rate and rhythm. ABDOMEN: Soft, flat, nontender with active bowel sounds. EXTREMITIES: Neurovascularly intact x4. The patient has tenderness to palpation to his left groin area. This increases with hip flexion. BACK: By report is atraumatic and nontender. LABORATORY FINDINGS: White blood cell count 9.4, hemoglobin 12.3, hematocrit 39.2, platelets 133. Sodium 141, potassium 5.0, chloride 105, CO2 25, BUN 24, creatinine 1.14, glucose 108, PT 17, INR 1.4, and PTT 31. RADIOGRAPHIC REPORTS: AP chest x-ray showed questionable findings of prominent pulmonary vasculature. AP pelvis shows degenerative changes in the hip joints bilaterally, left greater than right. Plane radiographs of the left hip show a questionable impacted left femoral neck fracture. CT of the left hip again are suggestive of a subtle impacted fracture of the femoral neck. ASSESSMENT/PLAN: 1. Status post fall after being struck by a horse yesterday and delayed presentation today. 2. Left hip pain, awaiting evaluation with MRI. 3. History of osteoarthritis, benign prostatic hypertrophy, hypertension, atrial fibrillation, coronary artery disease. PLAN: Plan will be to admit the patient to the surgical floor. We will obtain his MRI today. Reviewed that with Orthopedics. Otherwise, we will continue pain control, pulmonary toilet, gastritis, mechanical VTE prophylaxis. We will have the patient n.p.o. after midnight, if needed Monday night for a Monday procedure. The patient may do toe-touch weightbearing with physical therapy at this time. The evaluation, examination, laboratory, and radiographic findings were discussed with Dr. Seymour prior to this dictation. Job ID: [id number]
[2019-04-05] MEDS ORDERED: hydrALAZINE 20 MG/ML VIAL SLOW IVP PRN (18:07)
[2019-04-05] MEDS ORDERED: Ondansetron PF 4 MG/2 ML Vial IVP PRN (18:07)
[2019-04-05] MEDS ORDERED: Dextrose 50% Abboject 50 ML SYRINGE SLOW IVP PRN (18:07)
[2019-04-05] MEDS ORDERED: Dextrose 5% in Water 1,000 ML IV PRN (18:07)
[2019-04-05] MEDS ORDERED: Cyclobenzaprine 10 MG TAB PO PRN (18:07)
[2019-04-05] MEDS ORDERED: traMADol HCl 50 MG TAB PO PRN ×2 (18:07)
[2019-04-05] MEDS ORDERED: Ondansetron ODT 4 MG TAB PO PRN (18:07)
[2019-04-05] MEDS ORDERED: Sodium Chloride 0.9% 1,000 ML IV SCH (18:07)
[2019-04-05] MEDS ORDERED: HYDROcodone/Acetaminophen 10/325 mg Tablet ONE (18:27)
--- NOTE | 2019-04-05 18:53 | MRI ---
MRI OF THE LEFT HIP 04/05/19 PROVIDED CLINICAL HISTORY: Left hip pain. FINDINGS: Comparison is made with the CT examination and radiographs from earlier 04/05/19. Reference is also m jonathan to CT of the abdomen and pelvis dated 03/01/18. The areas of concern involving the basicervical region of the left femoral neck on the axial CT perfo rmed earlier today appears similar to the prior CT examination of 03/01/18. There is no discrete linear signal traversing the entirety of the femoral neck on the left. There is patchy nonlinear marrow edema involving the lateral aspect of the subcapital region of the left femor al neck. There is a moderate left hip joint effusion. Regional marrow signal appears otherwise normal . The left hip flexor, abductor, adductor and hamstring tendons appear intact. There is increased signal intensity on fluid sensitive sequences involving the left adductor musculat ure compatible with muscular strain. Regional muscular signal appears otherwise unremarkable. There is conspicuous periarticular osteophyte formation with femoral/acetabular articular cartilage l oss and multiple small intra-articular bodies. Degeneration of the acetabular labrum is also noted. IMPRESSION: 1. Contusion involving the lateral aspect of the left femoral neck without discrete fracture. 2. Muscular strain involving the left adductor musculature. 3. Moderate left hip joint effusion. 4. Degenerative arthrosis of the left hip. POS: J LUIS
[2019-04-05] MEDS: Ibuprofen 600 MG TAB PO SCH (20:47)
[2019-04-05 21:50] VITALS: BMI 26.2
[2019-04-05] MEDS ORDERED: PROVENTIL INHALER 6.7 G (200 INHALATIONS) INH PRN (23:03)
[2019-04-05] MEDS: Acetaminophen 500 MG TAB PO SCH (23:30)
--- NOTE | 2019-04-06 00:13 | PRG ---
DATE OF SERVICE: 04/05/2019 SUBJECTIVE: The patient was seen this evening during rounds. He was sitting up in bed with no signs of acute distress. The patient did have increased respiratory rate with nasal cannula oxygen. He reported he wears 2 L nasal cannula oxygen at home and that he consistently is mildly short of breath. He reported that his breathing at this time is the same as when he is at home. He had just received a breathing treatment. OBJECTIVE: VITAL SIGNS: Temperature 97.9, pulse 62, respirations 16, oxygen saturation 96% on 2 L nasal cannula, blood pressure 98/63. GENERAL: Elderly male, sitting up in bed with some mild pulmonary distress. PULMONARY: Equal chest rise and fall. Clear breath sounds bilaterally. Some mild pulmonary distress, which is his baseline. ABDOMEN: Soft, nontender, nondistended. EXTREMITIES: 2+ pulses in all extremities. Gross motor and sensation are intact. No significant swelling noted. ASSESSMENT: 1. Status post knocked over by horse, on Eliquis. 2. Left hip contusion. 3. History of benign prostatic hypertrophy, coronary artery disease, chronic obstructive pulmonary disease, congestive heart failure, hypertension, atrial fibrillation, osteoarthritis, and kidney stones. PLAN: Continue the patient's current diet and pain regimen. We will restart his home medications as clinically indicated. The patient received an MRI today, which demonstrated no fracture. We will reassess Orthopedic Surgery's recommendations tomorrow. He will start to work with Physical and Occupational Therapy tomorrow. Job ID: [id number]
[2019-04-06 04:58] LABS: #Eosinphils 0.3 thou/uL (0.0-0.7); #Lymphocytes 1.1 thou/uL (1.20-3.40); #Monocytes 0.6 thou/uL (0.11-0.59); #Neutrophils 6.6 thou/uL (1.40-6.50); %Basophils 0.2 % (0.0-1.0); %Eosinophils 3.3 % (0.0-10.0); %Lymphocytes 12.3 % (21.0-51.0); %Monocytes 7.2 % (0.0-10.0); Mean Corpuscular HGB CONC 33.3 g/dL (32.0-36.0); Mean Corpuscular Hemoglobin 31.1 pg (27.0-31.0); Mean Corpuscular Volume 93.6 fL (78.0-98.0); Mean Platelet Volume 7.3 fL (7.4-10.4); Platelet Count 124 thou/uL (130-400); RBC Distribution Width 12.8 % (11.5-14.5); Red Blood Cell (RBC) Count 3.86 mill/uL (4.70-6.10); White Blood Cell (WBC) Count 8.6 thou/uL (4.8-10.8)
[2019-04-06] MEDS: Acetaminophen 500 MG TAB PO SCH (05:06)
[2019-04-06] MEDS: Ibuprofen 600 MG TAB PO SCH (05:06)
[2019-04-06 05:16] LABS: Anion Gap 12 mmol/L (10-20); BUN (Urea Nitrogen) 32 mg/dL (8.4-25.7); Calc. Creatinine Clearance 49 mL/min (70-130); Calcium 8.9 mg/dL (7.8-10.44); Carbon Dioxide 27 mmol/L (23-31); Chloride 103 mmol/L (98-107); Estimated GFR-MDRD 57; Glucose 111 mg/dL (83-110); Magnesium 2.1 mg/dL (1.6-2.6); Phosphorus 4.3 mg/dL (2.3-4.7); Potassium 4.5 mmol/L (3.5-5.1); Sodium 137 mmol/L (136-145)
[2019-04-06] MEDS ORDERED: Budesonide 0.25 MG/2 ML NEB NEB SCH (06:30)
[2019-04-06] MEDS ORDERED: Arformoterol 15 MCG/2 ML NEB NEB SCH (06:30)
[2019-04-06 08:34] VITALS: TEMP 97.6
[2019-04-06] MEDS ORDERED: FLU VACC TS2019-20(65YR UP)/PF 180 MCG/0.5 ML SYRINGE IM ONE (09:00)
[2019-04-06] MEDS ORDERED: Fenofibrate 48 MG TAB PO SCH (09:00)
[2019-04-06] MEDS ORDERED: POTASSIUM GLUCONATE 500 MG PO SCH (09:00)
[2019-04-06] MEDS ORDERED: Lisinopril 2.5 MG TAB PO SCH (09:00)
[2019-04-06] MEDS ORDERED: Amoxicillin/Potassium Clav 500 MG TAB PO SCH (09:00)
[2019-04-06] MEDS ORDERED: Furosemide 40 MG TAB PO SCH (09:00)
[2019-04-06] MEDS ORDERED: Atorvastatin Calcium 40 MG TAB PO SCH (09:00)
[2019-04-06 12:22] VITALS: BP 111/67
--- NOTE | 2019-04-06 14:17 | CON ---
DATE OF CONSULTATION: 04/05/2019 REQUESTING PHYSICIAN: Dr. Wander Seymour. CONSULTING PHYSICIAN: Dr. Jass Carbone. REASON FOR CONSULTATION: Questionable left hip fracture. BRIEF CLINICAL HISTORY: Harrison is an 84-year-old male, who is transferred from [facility] for severe pain in the left hip after he was hit by his horse, which got spooked and nearly ran him over. The patient fell to the ground, landing on his left hip. He tried walking for the subsequent day or so, but was unable to improve his pain; therefore, he presented to the emergency room in [place]. He underwent examination CT and there was a question whether or not there was a femoral neck fracture. He was transferred to [facility] and accepted by the Trauma Service and we were consulted for evaluation of this suspected hip injury. MRI has been obtained up to this point, which is negative, but did demonstrate a joint effusion. The patient has known arthritis in the left hip. PHYSICAL EXAMINATION: GENERAL: This is an elderly male appearing stated age, in no apparent distress or discomfort. He is alert and oriented to person, place, time, and situation. Responsive and appropriate with examiner. EXTREMITIES: Visual inspection of left lower extremity demonstrates him to have normal external landmarks. No bruising. He has adequate range of motion with flexion, extension, internal and external rotation with normal shock. No relocation clunk. Internal-external rotation, flexion, extension, and loading to the hip were nonprovocative. I feel no crepitus. Range of motion of the knee is normal and exam is also normal. IMPRESSION: Left hip acute traumatic effusion with superimposed on chronic underlying osteoarthritis of the left hip. I suspect the patient might have hemarthrosis based on clinical presentation. PLAN: MRI was reviewed. CT was reviewed. No evidence of overt fracture is identified. The patient clinically is improving; therefore, we will continue to observe until he is able to stand, weightbear without any discomfort and treat conservatively and discharged based on clinical improvement. No surgical plans at this point. Job ID: [id number]
[2019-04-06] MEDS ORDERED: Furosemide 20 MG TAB PO SCH (21:00)
--- NOTE | 2019-04-08 04:39 | DIS ---
DATE OF ADMISSION: 04/05/2019 DATE OF DISCHARGE: 04/06/2019 ADMISSION DIAGNOSES: 1. Status post fall after being struck by a horse with delayed presentation. 2. Left hip pain. 3. History of osteoarthritis, BPH, hypertension, atrial fibrillation, coronary artery disease. 4. Acute traumatic pain. CONSULTATIONS: Orthopedics, Dr. Carbone. PROCEDURES PERFORMED: None. SUMMARY: The patient is an 84-year-old man, who was working with horses the night prior to presentation; he was reportedly watering, but then one got spooked and ran and knocked him over. The patient was able to ambulate home that night. His pain in his left groin continued to get worse. He took himself to the emergency department at [place], where he underwent evaluation and examination to include plain radiographs and CT that were suspicious for left hip fracture. He came to our facility by transfer, where he underwent evaluation. Upon review of his films, they did not clearly delineate fracture, so the patient was admitted and obtained an MRI. The following morning, MRI was reviewed and he was re-examined. His examination has improved. MRI did not show a clear fracture and it was felt by the orthopedic team that he likely had hemarthrosis and contusion and will be able to discharge home. They recommended that he ambulate with a walker until followup. The patient did ambulate prior his discharge. He will follow up orthopedics in 2-3 weeks, he may return sooner as needed. Job ID: [id number] MTDD
== END 2019-04-06 12:30 | disposition home or self-care (01) | DRG 605 ==
LOC: ERS 13:52 → SURG A 19:01
PROVIDERS: ADMIT Specialist; ATTEND Specialist
DX: S70.02XA Contusion of left hip, initial encounter (principal); M25.052 Hemarthrosis, left hip; I48.91 Unspecified atrial fibrillation; I25.10 Atherosclerotic heart disease of native coronary artery without angina pectoris; N40.0 Benign prostatic hyperplasia without lower urinary tract symptoms; J44.9 Chronic obstructive pulmonary disease, unspecified; M16.12 Unilateral primary osteoarthritis, left hip; Z79.01 Long term (current) use of anticoagulants; Z79.82 Long term (current) use of aspirin; Z79.51 Long term (current) use of inhaled steroids; Z87.442 Personal history of urinary calculi; Z95.1 Presence of aortocoronary bypass graft; W55.12XA Struck by horse, initial encounter; Y92.9 Unspecified place or not applicable; I11.0 Hypertensive heart disease with heart failure; I50.9 Heart failure, unspecified
CPT/HCPCS: 36415; 71045; 72170; 80048; 83735; 84100; 85025; 85610; 85730; 86850; 86870; 86900; 86901; 86922; 93005; 94640; J7620; J7626

== ENCOUNTER 2019-07-10 09:33 | Inpatient (IN) | payer MEDICARE ==
[2019-07-10 10:24] LABS: #Basophils 0.1 thou/uL (0.0-0.2); #Eosinphils 0.2 thou/uL (0.0-0.7); #Lymphocytes 0.9 thou/uL (1.20-3.40); #Monocytes 0.3 thou/uL (0.11-0.59); #Neutrophils 5.1 thou/uL (1.40-6.50); %Basophils 0.9 % (0.0-1.0); %Eosinophils 2.9 % (0.0-10.0); %Lymphocytes 13.9 % (21.0-51.0); %Monocytes 4.2 % (0.0-10.0); Hemoglobin 12.8 g/dL (14.0-18.0); Mean Corpuscular HGB CONC 31.8 g/dL (32.0-36.0); Mean Corpuscular Hemoglobin 29.3 pg (27.0-31.0); Mean Corpuscular Volume 92.1 fL (78.0-98.0); Mean Platelet Volume 7.4 fL (7.4-10.4); Platelet Count 161 thou/uL (130-400); RBC Distribution Width 12.4 % (11.5-14.5); Red Blood Cell (RBC) Count 4.37 mill/uL (4.70-6.10); White Blood Cell (WBC) Count 6.5 thou/uL (4.8-10.8)
--- NOTE | 2019-07-10 10:28 | RAD ---
RADIOGRAPH CHEST 1 VIEW: DATE: 07/10/2019 HISTORY: 84-year-old male with dyspnea and hypoxemia. FINDINGS: There is hyperinflation of the lungs, consistent with COPD. There is no evidence of airspace density, pulmonary edema, cardiomegaly, or pneumothorax. The lateral costophrenic angles are not effaced. There are sternotomy wires. IMPRESSION: 1) No acute pulmonary findings. 2) emphysema.
[2019-07-10 10:43] LABS: ALT (SGPT) 69 U/L (8-55); AST (SGOT) 53 U/L (5-34); Albumin 3.8 g/dL (3.4-4.8); Alkaline Phosphatase 64 U/L (40-110); Anion Gap 13 mmol/L (10-20); BUN (Urea Nitrogen) 19 mg/dL (8.4-25.7); Bilirubin, Total 0.7 mg/dL (0.2-1.2); Calc. Creatinine Clearance 0 mL/min (70-130); Calcium 8.2 mg/dL (7.8-10.44); Carbon Dioxide 23 mmol/L (23-31); Chloride 111 mmol/L (98-107); Estimated GFR-MDRD 63; Glucose 108 mg/dL (83-110); Potassium 4.7 mmol/L (3.5-5.1); Protein, Total 5.8 g/dL (5.8-8.1); Sodium 142 mmol/L (136-145)
[2019-07-10 10:57] LABS: CKMB 3.9 ng/mL (0-6.6)
--- NOTE | 2019-07-10 13:49 | PDOC.FPRHP ---
- History of Present Illness Chief Complaint: dyspnea History of Present Illness: Harrison Israel is an 84 year old M with a PMH of COPD, CAD, A fib on eliquis, HTN who presented to the ED with a 1 day history of worsening dyspnea and cough. Has had multiple hospitalizations in the past for COPD exacerbation. Became dyspneic overnight, used duoneb, no improvement into the morning. Dyspnea worsened and was unable to ambulate from bed to restroom without significant shortness of breath. Takes duoneb three times a day, on no maintenance inhalers and uses 2 L NC O2 supplementation at baseline. Denies any vision changes, headaches, fever, chills, chest pain, palpitations, diaphoresis. Has a significant history of CAD and has had CABG twice. In the EMS, he was given Duoneb X3, solumedrol 125. - Allergies/Adverse Reactions Allergies Allergy/AdvReac Type Severity Reaction Status Date / Time No Known Allergies Allergy Unverified 07/10/19 14:55 - Home Medications Medication Instructions Recorded Confirmed Type Isosorbide Mononitrate [Isosorbide 60 mg PO DAILY 03/17/15 07/10/19 History Mononitrate ER] Apixaban [Eliquis] 5 mg PO BID #60 tab 06/14/16 07/10/19 Rx Fenofibrate Nanocrystallized 48 mg PO DAILY 07/22/16 07/10/19 History [Tricor] Aspirin [Adult Low Dose Aspirin EC] 81 mg PO DAILY 01/18/17 07/10/19 History Lisinopril [Zestril] 2.5 mg PO BID 01/18/17 07/10/19 History Albuterol Sulfate [Ventolin Hfa] 2 puff IH Q4HR PRN 02/07/18 07/10/19 History Furosemide [Lasix] 20 mg PO QPM 02/07/18 07/10/19 History Acetaminophen [Tylenol Regular 650 mg PO Q4H PRN 04/18/18 07/10/19 History Strength] Atorvastatin Calcium [Lipitor] 40 mg PO DAILY 04/05/19 07/10/19 History Furosemide 40 mg PO QAM 04/05/19 07/10/19 History Potassium Gluconate 500 mg PO BID 04/05/19 07/10/19 History - History PMHx: A fib on eliquis, CHF, COPD on 2 L NC at home, HTN, CAD s/p CABG, BPH PSHx: knee surgery, CABG FHx: CAD Social: quit smoking a year ago after smoking most of his life, denies alcohol or drug use - Review of Systems General: denies: fever/chills, weight/appetite/sleep changes Eyes: denies: eye pain, vision changes ENT: denies: nasal congestion, rhinorrhea Respiratory: reports: cough, shortness of breath, exercise intolerance Cardiovascular: denies: chest pain, palpitation Gastrointestinal: denies: nausea, vomiting, diarrhea Genitourinary: denies: incontinence, dysuria Skin: denies: rashes, lesions Musculoskeletal: denies: pain, tenderness Neurological: denies: syncope, seizure Psychological: denies: anxiety, depression - Vital signs BP: 107/57 HR: 66 RR: 18 Tmax: 97.8 Pox: 99% on RA Wt: 86 kg - Physical Exam Constitutional: NAD, awake, alert and oriented, well developed HEENT: normocephalic and atraumatic, PERRLA, EOMI, conjunctiva clear, grossly normal vision, grossly normal hearing, normal nasal mucosa, MMM Neck: supple, FROM Heart: RRR, normal S1/S2, no murmurs/rubs/gallops Lungs: no respiratory distress -Lungs: denies air movement, expiratory wheezes Abdomen: soft, non-tender, bowel sounds present Musculoskeletal: normal structure, normal tone, ROM grossly normal Neurological: no focal deficit, CN II-XII intact Skin: no rash/lesions, good turgor, capillary refill <2 seconds Heme/Lymphatic: no unusual bruising or bleeding, no purpura Psychiatric: normal mood and affect, good judgment and insight, intact recent and remote memory FMR H&P: Results - Labs Result Diagrams: 07/11/19 04:33 07/10/19 10:03 Lab results: WBC 6.5 thou/uL (4.8-10.8) 07/10/19 10:03 Hgb 12.8 g/dL (14.0-18.0) L 07/10/19 10:03 Hct 40.2 % (42.0-52.0) L 07/10/19 10:03 MCV 92.1 fL (78.0-98.0) 07/10/19 10:03 Plt Count 161 thou/uL (130-400) 07/10/19 10:03 Neutrophils % 78.0 % (42.0-75.0) H 07/10/19 10:03 Sodium 142 mmol/L (136-145) 07/10/19 10:03 Potassium 4.7 mmol/L (3.5-5.1) 07/10/19 10:03 Chloride 111 mmol/L (98-107) H 07/10/19 10:03 Carbon Dioxide 23 mmol/L (23-31) 07/10/19 10:03 BUN 19 mg/dL (8.4-25.7) 07/10/19 10:03 Creatinine 1.11 mg/dL (0.7-1.3) 07/10/19 10:03 Glucose 108 mg/dL (83-110) 07/10/19 10:03 Calcium 8.2 mg/dL (7.8-10.44) 07/10/19 10:03 Total Bilirubin 0.7 mg/dL (0.2-1.2) 07/10/19 10:03 AST 53 U/L (5-34) H 07/10/19 10:03 ALT 69 U/L (8-55) H 07/10/19 10:03 Alkaline Phosphatase 64 U/L (40-110) 07/10/19 10:03 CK-MB (CK-2) 3.9 ng/mL (0-6.6) 07/10/19 10:03 B-Natriuretic Peptide 243.2 pg/mL (0-100) H 07/10/19 10:00 Serum Total Protein 5.8 g/dL (5.8-8.1) 07/10/19 10:03 Albumin 3.8 g/dL (3.4-4.8) 07/10/19 10:03 - EKG Interpretation EKG: EKG showed A fib, rate controlled, no ST changes - Radiology Interpretation Chest x-ray Status: image reviewed by me, report reviewed by me (Emphysema, no acute cardiopulmonary findings) FMR H&P: A/P - Problem List (1) Acute and chronic respiratory failure with hypoxia Current Visit: No Status: Acute Code(s): J96.21 - ACUTE AND CHRONIC RESPIRATORY FAILURE WITH HYPOXIA Comment: improving.. (2) COPD exacerbation Current Visit: No Status: Acute Code(s): J44.1 - CHRONIC OBSTRUCTIVE PULMONARY DISEASE W (ACUTE) EXACERBATION (3) A-fib Current Visit: No Status: Chronic Code(s): I48.91 - UNSPECIFIED ATRIAL FIBRILLATION Qualifiers: Comment: stable.. (4) CAD (coronary artery disease) Current Visit: No Status: Chronic Code(s): I25.10 - ATHSCL HEART DISEASE OF [place] CORONARY ARTERY W/O ANG PCTRS Qualifiers: (5) Chronic systolic heart failure, ACC/AHA stage C Current Visit: No Status: Chronic Code(s): I50.22 - CHRONIC SYSTOLIC ( CONGESTIVE) HEART FAILURE (6) Dyslipidemia Current Visit: No Status: Chronic Code(s): E78.5 - HYPERLIPIDEMIA, UNSPECIFIED (7) HTN (hypertension) Current Visit: No Status: Chronic Code(s): I10 - ESSENTIAL (PRIMARY) HYPERTENSION Qualifiers: - Plan 1) Acute hypoxic respiratory failure - 2/2 COPD exacerbation - respiratory distress and sats were 83% on 2L NC for EMS - s/p Solumedrol 125 mg and duoneb X3 in EMS, additional duoneb in ED with minimal improvement - continue duonebs q4h - prednisone 40 mg po daily for 5 days - azithromycin - O2 supplementation with goal sat of 88-92% - obs tele as patient is almost back to baseline O2 requirement 2) COPD - only on duoneb TID at home with rescue inhaler - no maintenance inhalers - will start spiriva - in past, pt has not been able to afford maintenance inhalers 3) A fib-rate controlled - remains rate controlled - monitor on tele - continue eliquis 4) CAD - continue home regimen - ASA, Statin, ACEI - may need low dose BB if BP can tolerate 5) CHF - no signs of fluid overload - monitor I/Os Code Status: DNAR PCP: Steve Slade- [facility] Call Addendum - Attending - Attending Attestation Date/Time: 07/11/19 [id number] I personally evaluated the patient and discussed the management with Dr. Dr. Hawkins yesterday afternoon. I agree with the History, Examination, Assessment and Plan documented above with any addition or exceptions noted below.
[2019-07-10] MEDS ORDERED: Ondansetron PF 4 MG/2 ML Vial IVP PRN (14:31)
[2019-07-10] MEDS ORDERED: Acetaminophen 325 MG TAB PO PRN ×2 (14:31→14:53)
[2019-07-10 14:33] VITALS: BMI 26.2
[2019-07-10] MEDS: Azithromycin 500 MG in Sodium Chloride 0.9% 250 ML 250 ML IVPB SCH (16:25)
[2019-07-10 16:29] LABS: Hemoglobin 13.1 g/dL (14.0-18.0); Platelet Count 157 thou/uL (130-400)
[2019-07-10 18:38] LABS: Actual Bicarbonate (HCO3a) 21.5 mEq/L (22-28); Base Excess (BEa) -2.2 mEq/L (-2.0 to +3.0); CO2 Tension 33.3 mmHg (35.0-45.0); Calcium, Ionized 1.12 mmol/L (1.12-1.30); Carboxyhemoglobin (COHb) 0.8 gm% (0.0-3.0); O2 Tension (PaO2) 79.4 mmHg (> 60.0); Potassium - ABG Lab 4.26 mmol/L (3.70-5.30); pH, Arterial 7.43 (7.35-7.45)
[2019-07-10 18:39] LABS: Puncture Site RR
[2019-07-10 18:40] LABS: ALV-art Gradient 78.615 (0-20)
[2019-07-10] MEDS: Famotidine 20 MG TAB PO SCH (20:08)
[2019-07-10] MEDS: Potassium Chloride 8 MEQ TAB PO SCH (20:08)
[2019-07-10] MEDS: Lisinopril 2.5 MG TAB PO SCH (20:08)
[2019-07-10] MEDS: Apixaban 5 MG TAB PO SCH (20:09)
[2019-07-10] MEDS: Atorvastatin Calcium 40 MG TAB PO SCH (20:09)
[2019-07-10] MEDS ORDERED: Furosemide 20 MG TAB PO SCH (21:00)
[2019-07-11 05:14] LABS: Band 6 % (5-11); Hemoglobin 11.5 g/dL (14.0-18.0); Hypochromia SLIGHT = 6-15 cells (100X) (0-5/hpf); Lymphocytes 6 % (21-51); MDiff Complete? YES; Mean Corpuscular HGB CONC 33.3 g/dL (32.0-36.0); Mean Corpuscular Hemoglobin 30.8 pg (27.0-31.0); Mean Corpuscular Volume 92.6 fL (78.0-98.0); Mean Platelet Volume 7.1 fL (7.4-10.4); Monocytes 4 % (0-10); Neutrophil 84 % (42-75); Platelet Count 148 thou/uL (130-400); Platelet Morphology Comment Appears Adequate; RBC Distribution Width 12.4 % (11.5-14.5); Red Blood Cell (RBC) Count 3.72 mill/uL (4.70-6.10)
--- NOTE | 2019-07-11 06:04 | PDOC.FM ---
- Subjective Subjective: Feeling well this morning. SOB has improved however he would like a neb tx, it has been 5hrs since his last. Reports some weight gain and LE edema over the few days prior to admission, states it is worse this morning than yesterday. Had decreased urine output yesterday per patient. Monitors his wt and LE edema regularly due to his hx of heart failure. Sees Dr Posada outpt for COPD. Has had trouble affording copay for medications. - Objective MAR Reviewed: Yes Vital Signs & Weight: Vital Signs (12 hours) Temp Pulse Resp BP Pulse Ox 07/11/19 04:41 97.9 F 84 22 H 122/59 L 95 07/11/19 02:41 93 L 07/11/19 02:07 86 16 93 L 07/10/19 22:42 85 18 94 L 07/10/19 20:45 84 22 H 94 L 07/10/19 19:06 98.7 F 87 16 130/72 95 07/10/19 18:28 79 24 H 92 L Weight Weight 78.426 kg I&O: 07/09/19 07/10/19 07/11/19 06:59 06:59 06:59 Intake Total 1168 Output Total 800 Balance 368 Result Diagrams: 07/11/19 04:33 07/10/19 10:03 Phys Exam - Physical Examination Constitutional: NAD HEENT: moist MMs Neck: supple Inspiratory and expiratory wheezing, prolonged expiration Cardiovascular: RRR, no significant murmur Gastrointestinal: soft, non-tender Musculoskeletal: edema present (trace) Neurological: moves all 4 limbs Psychiatric: normal affect, A&O x 3 Skin: normal turgor Dx/Plan - Plan Plan: Acute on chronic hypoxic respiratory failure 2/2 COPD exacerbation - Initially 83% on 2L NC, on 2L NC at home. - Continue duonebs q4h, with PRN available. - Prednisone 40mg daily x 5days - Continue Azithromycin. Procal ordered - O2 supplementation with goal sat of 88-92% COPD - Only on duoneb TID at home with rescue inhaler - Started on Spiriva this hospitalization - CM consulted for medication acquisition Afib rate-controlled - Continue Eliquis CAD - Continue home meds - ASA, Statin, ACEI, Imdur - Consider low dose BB if BP can tolerate once CHF stable HFrEF - With recent pt reported wt gain, decreased output and increased edema will transition from PO to IV lasix and monitor urine output with strict I&Os. - Echo 2018 EF 35-40%, severe left atrial dilation. Moderate mitral and tricuspid regurg. - Fluid restriction, weight daily Code Status: DNAR PCP: Steve Slade- [facility] Call Addendum - Attending - Attending Attestation Date/Time: 07/11/19 1444 I personally evaluated the patient and discussed the management with Dr. Bourgeois. I agree with the History, Examination, Assessment and Plan documented above with any addition or exceptions noted below. Patient overall improved. He continues to have some dyspnea but was able to ambulate short distance. Reports increasing fluid retention over the last few days, likely component of CHF to this, will mildly increase diuresis. Continue neb treatments and steroids. Awaiting CM to see if there is any way for med assistance for this patient to be able to take the correct medications for his conditions in the outpatient setting.
[2019-07-11] MEDS ORDERED: Furosemide 40 MG/4 ML VIAL SLOW IVP SCH (07:15)
[2019-07-11] MEDS: Lisinopril 2.5 MG TAB PO SCH ×2 (08:26→20:53)
[2019-07-11] MEDS: Isosorbide Mononitrate (ER) 30 MG TAB PO SCH (08:26)
[2019-07-11] MEDS: Potassium Chloride 8 MEQ TAB PO SCH ×2 (08:27→20:53)
[2019-07-11] MEDS: Apixaban 5 MG TAB PO SCH ×2 (08:27→20:53)
[2019-07-11] MEDS: predniSONE 20 MG TAB PO SCH (08:27)
[2019-07-11] MEDS: Aspirin 81 mg Enteric Coated Tablet PO SCH (08:27)
[2019-07-11] MEDS: Fenofibrate 48 MG TAB PO SCH (08:27)
[2019-07-11] MEDS: Famotidine 20 MG TAB PO SCH ×2 (08:27→20:53)
[2019-07-11] MEDS ORDERED: Enoxaparin Sodium 40 MG/0.4 ML SYRINGE SC SCH (09:00)
[2019-07-11] MEDS ORDERED: Furosemide 40 MG TAB PO SCH (09:00)
[2019-07-11] MEDS ORDERED: Furosemide 20 MG/2 ML VIAL SLOW IVP SCH (14:00)
[2019-07-11] MEDS: Azithromycin 500 MG in Sodium Chloride 0.9% 250 ML 250 ML IVPB SCH (15:00)
[2019-07-11] MEDS: Atorvastatin Calcium 40 MG TAB PO SCH (20:53)
[2019-07-12 04:47] LABS: Hemoglobin 12.4 g/dL (14.0-18.0); Platelet Count 175 thou/uL (130-400)
--- NOTE | 2019-07-12 05:55 | PDOC.FM ---
- Subjective Subjective: Report shortness of breath this morning. Coughing a lot of mucus up. Usually takes Mucinex at home, has not been getting here. Denies fever, chills, chest pain. Feels that he is back to euvolemic. - Objective MAR Reviewed: Yes Vital Signs & Weight: Vital Signs (12 hours) Temp Pulse Resp BP BP Pulse Ox 07/12/19 03:51 92 L 07/12/19 03:16 97.9 F 76 16 116/70 95 07/11/19 23:13 93 L 07/11/19 20:53 91 107/58 L 07/11/19 19:44 92 L 07/11/19 19:43 85 22 H 93 L 07/11/19 19:15 98.0 F 96 16 109/59 L 96 Weight Weight 76.657 kg I&O: 07/10/19 07/11/19 07/12/19 06:59 06:59 06:59 Intake Total 1168 2470 Output Total 800 3050 Balance 368 -580 Result Diagrams: 07/12/19 04:34 07/12/19 04:34 Phys Exam - Physical Examination Moderate resp distress HEENT: moist MMs Neck: supple Inspiratory and expiratory wheezing, prolonged expiratory phase Cardiovascular: RRR, no significant murmur Gastrointestinal: soft, non-tender Neurological: moves all 4 limbs Psychiatric: normal affect, A&O x 3 Skin: normal turgor Dx/Plan - Plan Plan: Acute on chronic hypoxic respiratory failure 2/2 COPD exacerbation - Initially 83% on 2L NC, on 2L NC at home. Back to baseline O2 - Continue duonebs q4h, with PRN available. - Prednisone 40mg daily x 5 days - Procal 0.06, low suspicion for infection, dc Azithro - O2 supplementation with goal sat of 88-92% - Ordered Mucinex COPD - Only on duoneb TID at home with rescue inhaler - Discussed case with Dr Posada, attempting to find patient an affordable daily inhaler. Budesinide BID may be best option $32/mo - CM consulted for medication acquisition Afib rate-controlled - Continue Eliquis CAD - Continue home meds - ASA, Statin, ACEI, Imdur - Consider low dose BB if BP can tolerate once CHF stable HFrEF - Transition back to PO lasix - Echo 2017 EF 35-40%, severe left atrial dilation. Moderate mitral and tricuspid regurg. - Fluid restriction, weight daily Code Status: DNAR PCP: Steve Slade- [facility] Call Addendum - Attending - Attending Attestation Date/Time: 07/12/19 1004 I personally evaluated the patient and discussed the management with Dr. Bourgeois. I agree with the History, Examination, Assessment and Plan documented above with any addition or exceptions noted below. Patient overall stable. Continues to have increased sputum production and dyspnea. Will start on Budesonide while here, continue other neb treatments, steroids. Consult PT. Anticipate another day or 2 of hospitalization needed. Med assistance provided.
[2019-07-12] MEDS: Apixaban 5 MG TAB PO SCH ×2 (08:43→20:45)
[2019-07-12] MEDS: Aspirin 81 mg Enteric Coated Tablet PO SCH (08:43)
[2019-07-12] MEDS: Famotidine 20 MG TAB PO SCH ×2 (08:43→20:45)
[2019-07-12] MEDS: Lisinopril 2.5 MG TAB PO SCH ×2 (08:43→20:45)
[2019-07-12] MEDS: Furosemide 40 MG TAB PO SCH (08:44)
[2019-07-12] MEDS: predniSONE 20 MG TAB PO SCH (08:44)
[2019-07-12] MEDS: Potassium Chloride 8 MEQ TAB PO SCH ×2 (08:45→20:45)
[2019-07-12] MEDS: Fenofibrate 48 MG TAB PO SCH (08:45)
[2019-07-12] MEDS: Isosorbide Mononitrate (ER) 30 MG TAB PO SCH (08:47)
[2019-07-12] MEDS ORDERED: guaiFENesin ER 600 MG TAB PO SCH (09:00)
[2019-07-12] MEDS ORDERED: Guaifenesin DM 100-10/5 ML UDCUP PO PRN (10:51)
[2019-07-12] MEDS ORDERED: Furosemide 20 MG TAB PO SCH (13:00)
[2019-07-12] MEDS: Budesonide 0.5 MG/2 ML NEB INH SCH (18:53)
[2019-07-12] MEDS: Atorvastatin Calcium 40 MG TAB PO SCH (20:45)
--- NOTE | 2019-07-13 05:30 | PDOC.FM ---
- Subjective Subjective: He says he is doing well this morning. He slept well overnight. He is eating well. He feels like he is back to his baseline as far as his fluid status. He is ready to go home today. - Objective MAR Reviewed: Yes Vital Signs & Weight: Vital Signs (12 hours) Temp Pulse Resp BP Pulse Ox 07/13/19 02:45 78 14 97 07/12/19 23:45 98.1 F 87 16 123/65 97 07/12/19 22:48 89 16 96 07/12/19 19:00 98.6 F 86 16 110/69 99 07/12/19 18:53 91 18 95 Weight Weight 76.657 kg I&O: 07/11/19 07/12/19 07/13/19 06:59 06:59 06:59 Intake Total 1168 2470 Output Total 800 3050 Balance 368 -580 Result Diagrams: 07/12/19 04:34 07/12/19 04:34 Phys Exam - Physical Examination Constitutional: NAD HEENT: moist MMs, oral pharynx no lesions Neck: supple, full ROM Slight wheeze in LLL Afib with regular rate Gastrointestinal: soft, non-tender, positive bowel sounds Musculoskeletal: no edema, pulses present Neurological: normal sensation, moves all 4 limbs Psychiatric: normal affect Skin: no rash Dx/Plan (1) Acute and chronic respiratory failure with hypoxia Code(s): J96.21 - ACUTE AND CHRONIC RESPIRATORY FAILURE WITH HYPOXIA Status: Acute (2) COPD exacerbation Code(s): J44.1 - CHRONIC OBSTRUCTIVE PULMONARY DISEASE W (ACUTE) EXACERBATION Status: Acute (3) A-fib Code(s): I48.91 - UNSPECIFIED ATRIAL FIBRILLATION Status: Chronic Qualifiers: (4) CAD (coronary artery disease) Code(s): I25.10 - ATHSCL HEART DISEASE OF [place] CORONARY ARTERY W/O ANG PCTRS Status: Chronic Qualifiers: (5) Dyslipidemia Code(s): E78.5 - HYPERLIPIDEMIA, UNSPECIFIED Status: Chronic (6) HTN (hypertension) Code(s): I10 - ESSENTIAL (PRIMARY) HYPERTENSION Status: Chronic Qualifiers: - Plan Plan: Acute on chronic hypoxic respiratory failure 2/2 COPD exacerbation - Initially 83% on 2L NC, on 2L NC at home. Back to baseline O2 - Continue duonebs q4h, with PRN available. - Prednisone 40mg daily x 5 days - Procal 0.06, low suspicion for infection, dc Azithro - O2 supplementation with goal sat of 88-92% - Ordered Mucinex COPD - Only on duoneb TID at home with rescue inhaler - Discussed case with Dr Posada, attempting to find patient an affordable daily inhaler. Budesonide BID may be best option $20/mo, Fomoterol $145, Brovana 15 days free with voucher according to CM. Pt says he cannot afford the Fomoterol - CM consulted for medication acquisition Afib rate-controlled - Continue Eliquis CAD - Continue home meds - ASA, Statin, ACEI, Imdur - Consider low dose BB if BP can tolerate once CHF stable HFrEF - Transition back to PO lasix - Echo 2017 EF 35-40%, severe left atrial dilation. Moderate mitral and tricuspid regurg. - Fluid restriction, weight daily Code Status: DNAR PCP: Steve Slade- [facility] Call Dispo: Med inpt, LOS > 48H. Likely d/c today once medications are set. Addendum - Attending - Attending Attestation Date/Time: 07/13/19 [id number] I personally evaluated the patient and discussed the management with Dr. Rosado. I agree with the History, Examination, Assessment and Plan documented above with any addition or exceptions noted below. Patient states he is back to baseline, he is on 2L oxygen. Case mgmt was able to arrange for budesonide for 20 dollars which pt states he can afford. Will d/ c home.
[2019-07-13] MEDS ORDERED: Budesonide 0.5 MG/2 ML NEB INH SCH (06:30)
[2019-07-13] MEDS: Budesonide 0.5 MG/2 ML NEB INH SCH (06:51)
[2019-07-13] MEDS: Fenofibrate 48 MG TAB PO SCH (08:35)
[2019-07-13] MEDS: Aspirin 81 mg Enteric Coated Tablet PO SCH (08:35)
[2019-07-13] MEDS: Famotidine 20 MG TAB PO SCH (08:36)
[2019-07-13] MEDS: predniSONE 20 MG TAB PO SCH (08:36)
[2019-07-13] MEDS: Isosorbide Mononitrate (ER) 30 MG TAB PO SCH (08:37)
[2019-07-13] MEDS: Furosemide 40 MG TAB PO SCH (08:37)
[2019-07-13] MEDS: Lisinopril 2.5 MG TAB PO SCH (08:37)
[2019-07-13] MEDS: Potassium Chloride 8 MEQ TAB PO SCH (08:37)
[2019-07-13] MEDS: Apixaban 5 MG TAB PO SCH (08:40)
[2019-07-13 11:43] VITALS: BP 113/60; TEMP 97.6
--- NOTE | 2019-07-14 15:00 | DIS ---
DATE OF ADMISSION: 07/10/2019 DATE OF DISCHARGE: 07/13/2019 PRIMARY CARE PHYSICIAN: Steve Slade DO RESIDENT: Shelia Bourgeois MD, PGY-2 ADMITTING ATTENDING: Jean Claude Barrow MD DISCHARGE ATTENDING: Brenda Bryant MD CONSULT: None. PROCEDURES: Chest x-ray on 07/10/2019, no acute pulmonary finding. Emphysema. PRIMARY DIAGNOSES: 1. Acute on chronic hypoxic respiratory failure secondary to chronic obstructive pulmonary disease exacerbation. 2. Chronic obstructive pulmonary disease exacerbation. SECONDARY DIAGNOSES: 1. Atrial fibrillation, rate controlled. 2. Coronary artery disease. 3. Heart failure with reduced ejection fraction. DISCHARGE MEDICATIONS: 1. Brovana 15 mcg b.i.d. x15 days. 2. Ventolin 2 inhalations q.4 hours p.r.n. 3. Apixaban 5 mg b.i.d. 4. Aspirin 81 mg daily. 5. Atorvastatin 40 mg daily. 6. Carvedilol 3.125 mg daily. 7. TriCor 48 mg daily. 8. Perforomist 20 mcg inhaled b.i.d. 9. Furosemide 40 mg q.a.m. 10. Furosemide 20 mg q.p.m. 11. Isosorbide mononitrate 60 mg daily. 12. Lisinopril 2.5 mg b.i.d. 13. Potassium gluconate 500 mg p.o. b.i.d. 14. Prednisone 40 mg p.o. daily x3 days. HISTORY OF PRESENT ILLNESS/HOSPITAL COURSE: Mr. Israel is an 84-year-old male with past medical history of COPD and heart failure, who presented with reduced ejection fraction, who presented to the ED with one day of worsening dyspnea and cough. No improvement with some DuoNeb. Most recently, he has been unable to afford his Perforomist, so he has been using DuoNeb q.6 hours at home and had increased it to q.4 hours with no improvement. 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 He is on 2 L nasal cannula at baseline. EMS has given DuoNeb x3, Solu-Medrol 125. Continued on steroids and started on azithromycin, this was discontinued due to low suspicion for infection. It also appeared that he was a little volume overloaded and he had missed one day of his Lasix while he was in the Emergency Department. He was switched over to IV Lasix for one day and then resumed back to his home p.o. dosing with some improvement. He also is on Robitussin DM at home, this was added back on. Initially, he was found to be 82% on 2 L nasal cannula. Therefore, oxygen was increasing over required BiPAP for intubation. Initial labs notable for hemoglobin 12.8. ABG; pH of 7.43, pCO2 of 33.3, pO2 of 79.4, and bicarb of 21.5. Troponin 0.072 and BNP 24.32. Procalcitonin 0.06. With regard to his medical conditions of atrial fibrillation is rate controlled and continued on Eliquis. With regard to his coronary artery disease, he was resumed on his home medications. We might consider adding a beta-adriana if his blood pressure is able to tolerate this. He follows with Dr. Lewis. With regard to his heart failure with reduced ejection fraction, he recently had an echo on 06/03/2019, that shows some improvement in his EF. DISPOSITION: Stable. DISCHARGE INSTRUCTIONS: 1. Location: Home. 2. Diet: Heart healthy, low-sodium. 3. Activity: As tolerated. 4. Followup: With Dr. Lewis within one month, Dr. Posada within three weeks, and PCP, Dr. Steve Slade within 7 days. Job ID: [id number] MTDD
== END 2019-07-13 12:55 | disposition home or self-care (01) | DRG 189 ==
LOC: ERS 09:33 → 2SW 14:29 → OBSVTOIN 17:33
PROVIDERS: ADMIT Emergency Medicine; ATTEND Emergency Medicine
DX: J96.21 Acute and chronic respiratory failure with hypoxia (principal); J44.1 Chronic obstructive pulmonary disease with (acute) exacerbation; I50.22 Chronic systolic (congestive) heart failure; I48.20 Chronic atrial fibrillation, unspecified; Z66 Do not resuscitate; I25.10 Atherosclerotic heart disease of native coronary artery without angina pectoris; E78.5 Hyperlipidemia, unspecified; M19.90 Unspecified osteoarthritis, unspecified site; F17.210 Nicotine dependence, cigarettes, uncomplicated; I11.0 Hypertensive heart disease with heart failure; Z79.01 Long term (current) use of anticoagulants; Z79.82 Long term (current) use of aspirin; Z79.51 Long term (current) use of inhaled steroids; Z79.899 Other long term (current) drug therapy; Z99.81 Dependence on supplemental oxygen; Z95.1 Presence of aortocoronary bypass graft; Z91.048 Other nonmedicinal substance allergy status
CPT/HCPCS: 36415; 71045; 80053; 82553; 82565; 82805; 83880; 84145; 84484; 85007; 85014; 85018; 85025; 85027; 85049; 93005; 93798; 94640; J0456; J1940; J7050; J7512; J7620; J7626

== ENCOUNTER 2019-12-01 08:17 | Observation (INO) | payer MEDICARE ==
[2019-12-01] MEDS ORDERED: Albuterol 200 PUFF (6.7GM INHALER) ONE (08:53)
--- NOTE | 2019-12-01 09:05 | RAD ---
EXAM: Single view of the chest HISTORY: Shortness of breath and COPD exacerbation COMPARISON: 07/10/2019 FINDINGS: Single view of the chest shows a normal sized cardiomediastinal silhouette. Patient is sta tus post sternotomy. Atherosclerotic calcifications are seen in the aorta. There is no evidence of consolidation, mass, or pleural effusion. The bones are unremarkable. IMPRESSION: No evidence of acute cardiopulmonary disease
[2019-12-01] MEDS ORDERED: Dexamethasone 4 MG TAB ONE (09:07)
[2019-12-01 09:14] LABS: #Eosinphils 0.2 thou/uL (0.0-0.7); #Lymphocytes 0.7 thou/uL (1.20-3.40); #Monocytes 0.3 thou/uL (0.11-0.59); #Neutrophils 5.1 thou/uL (1.40-6.50); %Basophils 0.2 % (0.0-1.0); %Eosinophils 3.4 % (0.0-10.0); %Lymphocytes 10.3 % (21.0-51.0); %Monocytes 5.4 % (0.0-10.0); %Neutrophils 80.7 % (42.0-75.0); Hemoglobin 13.1 g/dL (14.0-18.0); Mean Corpuscular HGB CONC 31.7 g/dL (32.0-36.0); Mean Corpuscular Hemoglobin 28.9 pg (27.0-31.0); Mean Corpuscular Volume 91.3 fL (78.0-98.0); Mean Platelet Volume 7.5 fL (7.4-10.4); Platelet Count 157 thou/uL (130-400); RBC Distribution Width 12.6 % (11.5-14.5); Red Blood Cell (RBC) Count 4.52 mill/uL (4.70-6.10); White Blood Cell (WBC) Count 6.3 thou/uL (4.8-10.8)
[2019-12-01 09:29] LABS: ALT (SGPT) 45 U/L (8-55); AST (SGOT) 64 U/L (5-34); Albumin 3.8 g/dL (3.4-4.8); Alkaline Phosphatase 63 U/L (40-110); Anion Gap 11 mmol/L (10-20); BUN (Urea Nitrogen) 14 mg/dL (8.4-25.7); Bilirubin, Total 0.7 mg/dL (0.2-1.2); Calc. Creatinine Clearance 0 mL/min (70-130); Calcium 8.5 mg/dL (7.8-10.44); Carbon Dioxide 27 mmol/L (23-31); Chloride 107 mmol/L (98-107); Estimated GFR-MDRD 79; Globulin 2.4 g/dL (2.4-3.5); Glucose 102 mg/dL (83-110); Potassium 4.2 mmol/L (3.5-5.1); Protein, Total 6.2 g/dL (5.8-8.1); Sodium 141 mmol/L (136-145)
[2019-12-01 09:52] LABS: CKMB 3.7 ng/mL (0-6.6)
[2019-12-01 10:04] LABS: Base Excess-Venous 1.1 mmol/L (-2.0 to 3.0); Bicarbonate (HCO3v) 26.6 mmol/L (22.0-28.0); CO2 Tension (PvCO2) 44.6 mmHg (40.0-50.0); Calcium, Ionized 1.12 mmol/L (See Comments:); Chloride 106 mmol/L (98-107); Potassium 4.1 mmol/L (3.5-5.1); Sodium 142 mmol/L (138-145); vO2 Saturation-calc 90.5 % (60.0-85.0)
[2019-12-01 13:14] LABS: Troponin I 0.112 ng/mL (< 0.028)
[2019-12-01] MEDS ORDERED: Ondansetron PF 4 MG/2 ML Vial IVP PRN (13:34)
[2019-12-01] MEDS ORDERED: Acetaminophen 325 MG TAB PO PRN (13:34)
[2019-12-01] MEDS ORDERED: Ondansetron ODT 4 MG TAB SL PRN (13:34)
[2019-12-01] MEDS ORDERED: Albuterol 200 PUFF (6.7GM INHALER) INH PRN (13:37)
[2019-12-01 13:54] VITALS: BMI 27.2
[2019-12-01 16:39] LABS: Troponin I 0.111 ng/mL (< 0.028)
[2019-12-01] MEDS ORDERED: PROVENTIL INHALER 6.7 G (200 INHALATIONS) INH PRN (18:32)
[2019-12-01] MEDS: Arformoterol 15 MCG/2 ML NEB NEB SCH (18:54)
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
[2019-12-01] MEDS ORDERED: Loratadine 10 MG TAB PO PRN (19:08)
[2019-12-01] MEDS ORDERED: methylPREDNISolone Sod Succ 40 MG VIAL IVP SCH (19:30)
[2019-12-01] MEDS: Azithromycin 500 MG in Sodium Chloride 0.9% 250 ML 250 ML IVPB SCH (20:10)
[2019-12-01] MEDS: Apixaban 5 MG TAB PO SCH (20:11)
[2019-12-01] MEDS: Lisinopril 2.5 MG TAB PO SCH (20:11)
[2019-12-01] MEDS: Furosemide 20 MG TAB PO SCH (20:11)
[2019-12-01] MEDS: guaiFENesin/DM ER PO SCH (20:12)
[2019-12-01] MEDS ORDERED: Non-Formulary Item 1 EACH (Formoterol Fumarate [Perforomist] 20 MCG) IH SCH (21:00)
[2019-12-02] MEDS: Lisinopril 2.5 MG TAB PO SCH ×2 (08:14→20:19)
[2019-12-02] MEDS: Apixaban 5 MG TAB PO SCH ×2 (08:15→20:20)
[2019-12-02] MEDS: Fenofibrate 48 MG TAB PO SCH (08:15)
[2019-12-02] MEDS: guaiFENesin/DM ER PO SCH ×2 (08:15→20:20)
[2019-12-02] MEDS: Atorvastatin Calcium 40 MG TAB PO SCH (08:15)
[2019-12-02] MEDS: Acetaminophen 325 MG TAB PO PRN ×2 (08:16→20:20)
[2019-12-02] MEDS: Aspirin 81 mg Enteric Coated Tablet PO SCH (08:17)
[2019-12-02] MEDS: Arformoterol 15 MCG/2 ML NEB NEB SCH ×2 (08:43→18:57)
[2019-12-02 11:12] LABS: Hemoglobin 12.1 g/dL (14.0-18.0); Mean Corpuscular HGB CONC 32.5 g/dL (32.0-36.0); Mean Corpuscular Hemoglobin 29.6 pg (27.0-31.0); Mean Corpuscular Volume 91.1 fL (78.0-98.0); Mean Platelet Volume 7.5 fL (7.4-10.4); Platelet Count 149 thou/uL (130-400); RBC Distribution Width 12.7 % (11.5-14.5); Red Blood Cell (RBC) Count 4.08 mill/uL (4.70-6.10); White Blood Cell (WBC) Count 8.8 thou/uL (4.8-10.8)
[2019-12-02 11:17] LABS: ALT (SGPT) 34 U/L (8-55); AST (SGOT) 26 U/L (5-34); Albumin 3.6 g/dL (3.4-4.8); Alkaline Phosphatase 53 U/L (40-110); Bilirubin, Direct 0.2 mg/dL (0.1-0.3); Bilirubin, Total 0.4 mg/dL (0.2-1.2); Iron 55 ug/dL (65-175); Iron Binding Capacity, Total 233 mcg/dL (261-462); Protein, Total 5.7 g/dL (5.8-8.1)
[2019-12-02 11:48] LABS: Iron 55 ug/dL (65-175); Iron Binding Capacity, Total 233 mcg/dL (261-462)
--- NOTE | 2019-12-02 20:02 | PDOC.HOSPP ---
- Subjective Encounter Date: 12/02/19 Encounter Time: 09:00 Subjective: The patient is doing much better. O2 is back to baseline, but he had not ambulated yet when I saw him today. He has dry cough. No chest pain - Objective Vital Signs & Weight: Vital Signs (12 hours) Temp Pulse Resp BP BP Pulse Ox 12/02/19 19:20 97.4 F L 81 20 121/64 100 12/02/19 18:56 99 24 H 94 L 12/02/19 14:44 82 18 100 12/02/19 11:46 70 18 100 12/02/19 08:37 100 12/02/19 08:36 73 18 100 12/02/19 08:14 78 132/62 Weight Weight 179 lb 3.773 oz I&O: 12/01/19 12/02/19 12/03/19 06:59 06:59 06:59 Intake Total 910 Balance 910 Result Diagrams: 12/02/19 10:40 12/01/19 09:00 Hospitalist ROS - Review of Systems Constitutional: denies: fever, chills - Medication Medications: Active Medications Generic Name Dose Route Start Last Admin Trade Name Freq PRN Reason Stop Dose Admin Acetaminophen 650 mg 12/01/19 18:32 12/02/19 08:16 Tylenol PO 650 mg Q4H PRN Administration Mild Pain (1-3) Albuterol/Ipratropium 3 ml 12/01/19 22:30 12/02/19 18:56 Duoneb NEB 3 ml [id number] CHIDI Administration Apixaban 5 mg 12/01/19 21:00 12/02/19 08:15 Eliquis PO 5 mg BID CHIDI Administration Arformoterol Tartrate 15 mcg 12/01/19 18:30 12/02/19 18:57 Brovana NEB 15 mcg BID-RT CHIDI Administration Aspirin 81 mg 12/02/19 09:00 12/02/19 08:17 Ecotrin PO 81 mg DAILY CHIDI Administration Atorvastatin Calcium 40 mg 12/02/19 09:00 12/02/19 08:15 Lipitor PO 40 mg DAILY CHIDI Administration Fenofibrate 48 mg 12/02/19 09:00 12/02/19 08:15 Tricor PO 48 mg DAILY CHIDI Administration Furosemide 20 mg 12/01/19 21:00 12/01/19 20:11 Lasix PO 20 mg QPM CHIDI Administration Guaifenesin/Dextromethorphan 1 tab 12/01/19 21:00 12/02/19 08:15 Mucinex Dm PO 1 tab Q12HR CHIDI Administration Azithromycin 500 mg/ Sodium 250 mls @ 250 mls/hr 12/01/19 20:00 12/01/19 20: 10 Chloride IVPB 250 mls 2000 CHIDI Administration Isosorbide Mononitrate 60 mg 12/02/19 09:00 12/02/19 08:14 Imdur PO 60 mg DAILY CHIDI Administration Lisinopril 2.5 mg 12/01/19 21:00 12/02/19 08:14 Zestril PO 2.5 mg BID CHIDI Administration - Exam General Appearance: NAD, awake alert Eye: PERRL, anicteric sclera ENT: normocephalic atraumatic, no oropharyngeal lesions Neck: no JVD Heart: RRR, no murmur, no gallops, no rubs Respiratory - other findings: scattered wheezing at bases bilaterally Gastrointestinal: soft, non-tender, non-distended, normal bowel sounds Extremities: no cyanosis, no clubbing, no edema Skin: normal turgor, no lesions, no rashes Hosp A/P - Plan This is an 84 year old male with history of COPD, systolic CHF who presents to hospital with COPD exacerbation Acute hypoxic respiratory failure secondary to COPD exacerbation - continue scheduled breathing treatments. Pt down to 2L nasal cannula which is his baseline - wean steroids to oral steroids - case management consulted for home health and PT and nursing Atrial fibrillation - continue eliquis Systolic heart failure - continue lasix, lisinopril and idur Hypertension - continue lasix, lisinopril, Code status: DNR
[2019-12-02] MEDS ORDERED: predniSONE 20 MG TAB PO SCH (20:15)
[2019-12-02] MEDS: Furosemide 20 MG TAB PO SCH (20:20)
[2019-12-02] MEDS: Azithromycin 500 MG in Sodium Chloride 0.9% 250 ML 250 ML IVPB SCH (21:44)
[2019-12-03 07:07] VITALS: BP 110/79; TEMP 97.6
[2019-12-03] MEDS: Arformoterol 15 MCG/2 ML NEB NEB SCH (07:32)
[2019-12-03] MEDS: Aspirin 81 mg Enteric Coated Tablet PO SCH (08:53)
[2019-12-03] MEDS: Atorvastatin Calcium 40 MG TAB PO SCH (08:53)
[2019-12-03] MEDS: Apixaban 5 MG TAB PO SCH (08:53)
[2019-12-03] MEDS: Lisinopril 2.5 MG TAB PO SCH (08:54)
[2019-12-03] MEDS: Fenofibrate 48 MG TAB PO SCH (08:54)
[2019-12-03] MEDS: guaiFENesin/DM ER PO SCH (08:54)
[2019-12-03] MEDS ORDERED: Folic Acid 1 MG TAB PO SCH (09:00)
[2019-12-03] MEDS ORDERED: Azithromycin 250 MG TAB PO SCH (09:00)
[2019-12-03] MEDS ORDERED: predniSONE 20 MG TAB PO SCH (16:00)
--- NOTE | 2019-12-04 06:40 | DIS ---
DATE OF ADMISSION: 12/01/2019 DATE OF DISCHARGE: 12/03/2019 DISCHARGE DIAGNOSES: 1. Acute hypoxic respiratory failure secondary to chronic obstructive pulmonary disease exacerbation. 2. Folic acid deficiency anemia. 3. Elevated troponin. BRIEF HISTORY OF PRESENT ILLNESS: This is an 84-year-old male with a past medical history of COPD, presented to the emergency room with worsening dyspnea on exertion. The patient states he was unable to get his O2 saturation above 80%. The patient states that he did not refill his Perforomist that he was given by Dr. Posada, a year ago, because it was too expensive. He was given budesonide by Dr. Olmos, but did not refill it last month. He denies fevers or chills. He presented to the emergency room for further workup. When the patient presented to the emergency room, he was diffusely wheezy, and he was hypoxic on 2 L of oxygen, requiring 4 L of oxygen. He was admitted for further workup. HOSPITAL COURSE: Acute hypoxic respiratory failure secondary to COPD exacerbation: The patient was given IV steroids, DuoNeb, and azithromycin. He had a D-dimer which was normal. He improved significantly with breathing treatments and steroids. ECHO 12/03 was done due to elevated troponins, which showed EF of 45% to 40% and no wall motion abnormalities. The patient is back to his baseline level oxygen. He will be given azithromycin for 3 more days and prednisone for 3 more days to complete a 5-day course of steroids. He was also prescribed budesonide 0.5 mg nebulizer twice daily, which is the dose he is supposed to be on after speaking to the pulmonology clinic. The patient states that he is able to afford this with his Medicare Part B. The patient was set up with home health on discharge. DISCHARGE PHYSICAL EXAMINATION: VITAL SIGNS: Temperature 97.6, heart rate 82, respiratory rate 16, O2 saturation 95% on 2 L nasal cannula. GENERAL: The patient is alert, awake, oriented x3. CVS: Regular rate and rhythm. LUNGS: Slightly scattered wheezing at the bases. ABDOMEN: Positive bowel sounds, soft, nontender, nondistended. EXTREMITIES: No edema. PERTINENT LABORATORY DATA: CBC on 12/01: White count 8.8, hemoglobin 12.1, hematocrit 37.2, platelet count 149. BMP on 11/30: Normal. Iron panel: Iron 55, TIBC 23, iron saturation 24. Vitamin B12: 427 Folate: 5.90. Troponin I: 0.112, 0.111. IMAGING DATA: Chest x-ray on 11/30: No acute process. Echo on 12/02: EF 40% to 45%, diastolic dysfunction, mild aortic stenosis, moderately enlarged right atrium, mildly enlarged right ventricular cavity, moderately dilated left atrium. DISCHARGE CONDITION: Stable. ACTIVITY: As tolerated. DIET: Heart healthy diet with a 2 L fluid restriction. DISCHARGE MEDICATIONS: 1. Azithromycin 250 mg p.o. daily, quantity 3. 2. Budesonide 0.5 mg neb b.i.d. 3. Folic acid 1 mg p.o. daily. 4. Prednisone 40 mg, quantity 3 tablets. DISCHARGE INSTRUCTIONS: The patient to follow up with his PCP in a week and Dr. Olmos in 2 weeks. He should start taking folic acid supplements. He should get a repeat CBC in 6 weeks. Job ID: [id number] MTDD
[2019-12-04] MEDS ORDERED: Furosemide 40 MG TAB PO SCH (07:30)
== END 2019-12-03 16:49 | disposition home or self-care (01) ==
LOC: ERS 08:17 → T4-B 13:30
PROVIDERS: ADMIT Internal Medicine; ATTEND Internal Medicine
DX: J44.1 Chronic obstructive pulmonary disease with (acute) exacerbation (principal); J96.01 Acute respiratory failure with hypoxia; D52.9 Folate deficiency anemia, unspecified; R79.89 Other specified abnormal findings of blood chemistry; I48.91 Unspecified atrial fibrillation; I11.0 Hypertensive heart disease with heart failure; I50.20 Unspecified systolic (congestive) heart failure; I25.10 Atherosclerotic heart disease of native coronary artery without angina pectoris; N40.0 Benign prostatic hyperplasia without lower urinary tract symptoms; M19.90 Unspecified osteoarthritis, unspecified site; Z66 Do not resuscitate; Z86.12 Personal history of poliomyelitis; Z87.891 Personal history of nicotine dependence; Z79.01 Long term (current) use of anticoagulants; Z79.82 Long term (current) use of aspirin; Z79.899 Other long term (current) drug therapy; Z95.1 Presence of aortocoronary bypass graft
CPT/HCPCS: 36415; 71045; 80053; 80076; 82330; 82553; 82607; 82746; 82803; 83540; 83550; 83880; 84484; 85025; 85027; 85379; 87633; 87798; 93005; 93306; 94640; G0378; J0456; J2920; J7050; J7512; J7620; J8540

== ENCOUNTER 2019-12-12 14:29 | Outpatient (CLI) | payer MEDICARE ==
[~2019-12-12 14:29] MED LIST: Iopamidol-370 76% 500 ML 1 ML ONE
--- NOTE | 2019-12-12 16:39 | CT ---
CT ABDOMEN AND PELVIS WITH AND WITHOUT CONTRAST: 12/12/19 Renal protocol was followed with postcontrast images performed in portal venous and delayed venous ph [facility]. INDICATIONS: Follow-up renal mass. Comparison made to CT of 11/14/18. FINDINGS: Lung bases clear. Liver, spleen, pancreas, stomach, duodenum remain unremarkable. The gallbladder is mildly distended b ut similar in appearance to the prior exam. No pericholecystic inflammation. Bilateral adrenal nodules are again seen and these appear stable and have been previously described a s benign adrenal adenomas. Review of the kidneys again shows a large cyst from the superior pole of the left kidney measuring up to 7 cm. A cyst in the medial left kidney is again seen measuring 2 cm. Both of these left renal cys ts have slightly increased in size since the prior study. A small cyst seen medial inferior right kid deanna and inferior pole of right kidney again noted. Both of these are stable from prior exam measuring less than 1 cm. Review of the right kidney again shows benign appearing cysts inferior pole measuring 1.5 cm. A subce ntimeter cyst along the lateral cortex is stable and there are two or three other tiny low density fo ci which are unchanged. The enhancing mass in the mid right kidney is again identified. This mass remains isodense on noncont rast study and does snow enhancement on postcontrast images. It has enlarged slightly since prior exa m. AP dimension on the delayed sequence today is measured at 2.4 cm. It is a similar measurement, pre viously was recorded at 2.0 cm. On delayed sequence, the collecting structures were opacified and appear unremarkable. Aorta is calcified and ectatic measuring up to 2.5 cm. Bowel loops appear unremarkable. No adenopathy seen. Osseous structures unremarkable with degenerative spine changes. IMPRESSION: 1. The enhancing mass in the mid right kidney has slightly increased in size since prior exam. 2. Bilateral renal cystic lesions are again noted. These have increased in size slightly. 3. Bilateral adrenal nodules appear stable. POS: [facility]
== END 2019-12-12 14:30 | disposition home or self-care (01) ==
LOC: BICCT 14:29
PROVIDERS: ATTEND Urology
DX: N28.89 Other specified disorders of kidney and ureter (principal); E27.8 Other specified disorders of adrenal gland
CPT/HCPCS: 74170; Q9967

== ENCOUNTER 2020-04-03 04:18 | Inpatient (IN) | payer MEDICARE, OTHER ==
[2020-04-03] MEDS ORDERED: methylPREDNISolone Sod Succ/PF 125 MG/2 ML VIAL ONE (04:38)
[2020-04-03 04:55] LABS: Actual Bicarbonate (HCO3a) 21.1 mEq/L (22-28); Analyzer IN Cardio ER; Base Excess (BEa) -3.4 mEq/L (-2.0 to +3.0); CO2 Tension 36.4 mmHg (35.0-45.0); Calcium, Ionized (arterial) 1.15 mmol/L (1.12-1.30); Carboxyhemoglobin (COHb) 0.1 gm% (0.0-3.0); Hemoglobin (Hb) 12.5 g/dL (14.0-18.0); O2 Tension (PaO2), arterial 158.7 mmHg (> 60.0); Potassium - ABG Lab 3.81 mmol/L (3.70-5.30); Puncture Site RR; pH, Arterial 7.38 (7.35-7.45)
[2020-04-03 04:58] LABS: #Eosinphils 0.1 thou/uL (0.0-0.7); #Lymphocytes 1.1 thou/uL (1.20-3.40); #Monocytes 0.9 thou/uL (0.11-0.59); #Neutrophils 7.2 thou/uL (1.40-6.50); %Basophils 0.2 % (0.0-1.0); %Eosinophils 0.7 % (0.0-10.0); %Lymphocytes 12.1 % (21.0-51.0); %Monocytes 9.6 % (0.0-10.0); %Neutrophils 77.5 % (42.0-75.0); Hemoglobin 12.4 g/dL (14.0-18.0); Mean Corpuscular HGB CONC 32.6 g/dL (32.0-36.0); Mean Corpuscular Hemoglobin 30.4 pg (27.0-31.0); Mean Corpuscular Volume 93.5 fL (78.0-98.0); Mean Platelet Volume 7.2 fL (7.4-10.4); Platelet Count 167 thou/uL (130-400); RBC Distribution Width 12.7 % (11.5-14.5); Red Blood Cell (RBC) Count 4.07 mill/uL (4.70-6.10); White Blood Cell (WBC) Count 9.3 thou/uL (4.8-10.8)
[2020-04-03 05:26] LABS: ALT (SGPT) 54 U/L (8-55); AST (SGOT) 57 U/L (5-34); Albumin 3.9 g/dL (3.4-4.8); Alkaline Phosphatase 63 U/L (40-110); Anion Gap 17 mmol/L (10-20); BUN (Urea Nitrogen) 21 mg/dL (8.4-25.7); Bilirubin, Total 0.6 mg/dL (0.2-1.2); CK (CPK) 329 U/L (30-200); Calc. Creatinine Clearance 0 mL/min (70-130); Calcium 8.9 mg/dL (7.8-10.44); Carbon Dioxide 23 mmol/L (23-31); Chloride 107 mmol/L (98-107); Estimated GFR-MDRD 55; Globulin 2.5 g/dL (2.4-3.5); Glucose 118 mg/dL (83-110); Potassium 4.2 mmol/L (3.5-5.1); Protein, Total 6.4 g/dL (5.8-8.1); Sodium 143 mmol/L (136-145)
[2020-04-03] MEDS ORDERED: Aspirin 325 MG TAB ONE (05:39)
[2020-04-03] MEDS ORDERED: cefTRIAXone\\ROCEPHIN 2 GM VIAL ONE (05:39)
[2020-04-03 05:45] LABS: CKMB 5.4 ng/mL (0-6.6)
[2020-04-03] MEDS ORDERED: Acetaminophen 325 MG TAB PO PRN (06:09)
[2020-04-03] MEDS ORDERED: Azithromycin 500 MG VIAL ONE (06:58)
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
--- NOTE | 2020-04-03 08:08 | RAD ---
EXAM: Single view of the chest HISTORY: Dyspnea/respiratory distress COMPARISON: 12/01/2019 FINDINGS: Single view of the chest shows an enlarged but stable cardiomediastinal silhouette. Athero sclerotic calcifications are seen in the aorta. The patient is status post sternotomy. Increased interstitial markings are present. There is no evidence of consolidation, mass, or pleural effusion. No acute osseous abnormality. IMPRESSION: Stable cardiomegaly
[2020-04-03 09:57] LABS: Troponin I 0.301 ng/mL (< 0.028)
[2020-04-03] MEDS: Azithromycin 500 MG in Sodium Chloride 0.9% 250 ML 250 ML IVPB SCH (10:38)
[2020-04-03] MEDS: cefTRIAXone\\ROCEPHIN 1 GM in Sodium Chloride 0.9% 100 ML IVPB SCH (10:38)
[2020-04-03] MEDS: Famotidine/PF 20 mg/2ml Vial SLOW IVP SCH ×2 (10:39→21:00)
[2020-04-03 11:03] LABS: SARS-CoV-2 MS2 Positive; SARS-CoV-2 N Gene Negative; SARS-CoV-2 S Gene Negative; SARS-CoV-2 by NAA Not Detected (NotDetected); SARS-CoV-2 orf1ab Negative
[2020-04-03] MEDS: Ipratropium Bromide 2.5 ml Neb NEB SCH ×3 (11:27→22:09)
[2020-04-03] MEDS: methylPREDNISolone Sod Succ 40 MG VIAL IVP SCH ×2 (11:52→17:17)
[2020-04-03 12:06] VITALS: BMI 25.6
--- NOTE | 2020-04-03 13:32 | PDOC.HOSPP ---
- Subjective Encounter Date: 04/03/20 Encounter Time: 11:35 Subjective: says he is breathing better than last night is normally on 2 ltr nasal canula at home and uses duonebs and dulera inh, sees for copd - Objective Vital Signs & Weight: Vital Signs (12 hours) Temp Pulse Ox 04/03/20 11:30 97.4 F L 04/03/20 08:15 99 Weight Weight 168 lb 9.6 oz Most Recent Monitor Data Heart Rate from ECG 97 NIBP 121/70 NIBP BP-Mean 87 Respiration from ECG 24 SpO2 97 Result Diagrams: 04/03/20 04:47 04/03/20 04:47 Hospitalist ROS - Medication Medications: Active Medications Generic Name Dose Route Start Last Admin Trade Name Freq PRN Reason Stop Dose Admin Famotidine 20 mg 04/03/20 09:00 04/03/20 10:39 Famotidine/Pf 20 Mg/2ml Vial SLOW IVP 20 mg Q12HR CHIDI Administration Ceftriaxone Sodium 1 gm/ 100 mls @ 200 mls/hr 04/03/20 06:30 04/03/20 10:38 Sodium Chloride IVPB Not Given Q24HR CHIDI Azithromycin 500 mg/ Sodium 250 mls @ 250 mls/hr 04/03/20 07:00 04/03/20 10:38 Chloride IVPB Not Given Q24HR CHIDI Ipratropium [place] 2.5 ml 04/03/20 07:00 04/03/20 11:27 Ipratropium [place] 2.5 Ml Neb NEB Not Given [id number]-CD CHIDI Methylprednisolone Sodium Succinate 40 mg 04/03/20 12:00 04/03/20 11:52 Methylprednisolone Sod Succ 40 Mg Vial IVP 40 mg Q6HR CHIDI Administration Sodium Chloride 10 ml 04/03/20 09:00 04/03/20 10:39 Flush - Normal Saline 10 Ml Syringe IVF 10 ml Q12HR CHIDI Administration - Exam General Appearance: awake alert Eye: PERRL, anicteric sclera ENT: no oropharyngeal lesions, dry oral mucosa Neck: supple, no JVD Heart: RRR, no murmur Respiratory: no rales, rhonchi, wheezes Gastrointestinal: soft, non-tender, non-distended, normal bowel sounds Extremities: no cyanosis, no edema Neurological: cranial nerve grossly intact, no focal deficits Psychiatric: normal affect, A&O x 3 Hosp A/P (1) Acute and chronic respiratory failure with hypoxia Code(s): J96.21 - ACUTE AND CHRONIC RESPIRATORY FAILURE WITH HYPOXIA Status: Acute (2) COPD exacerbation Code(s): J44.1 - CHRONIC OBSTRUCTIVE PULMONARY DISEASE W (ACUTE) EXACERBATION Status: Acute (3) A-fib Code(s): I48.91 - UNSPECIFIED ATRIAL FIBRILLATION Status: Chronic Qualifiers: Atrial fibrillation type: paroxysmal Qualified Code(s): I48.0 - Paroxysmal atrial fibrillation (4) CAD (coronary artery disease) Code(s): I25.10 - ATHSCL HEART DISEASE OF [place] CORONARY ARTERY W/O ANG PCTRS Status: Chronic Qualifiers: Coronary Disease-Associated Artery/Lesion type: bypass graft [place] vs. transplanted heart: [place] heart Associated angina: without angina Qualified Code(s): I25.810 - Atherosclerosis of coronary artery bypass graft(s) without angina pectoris (5) Chronic systolic heart failure, ACC/AHA stage C Code(s): I50.22 - CHRONIC SYSTOLIC (CONGESTIVE) HEART FAILURE Status: Chronic (6) Dyslipidemia Code(s): E78.5 - HYPERLIPIDEMIA, UNSPECIFIED Status: Chronic (7) HTN (hypertension) Code(s): I10 - ESSENTIAL (PRIMARY) HYPERTENSION Status: Chronic Qualifiers: - Plan is off and on bipap continue steroids, nebs, empiric antibiotics prior ef of 40% on 11/2019 hemostable is on 2lts home O2 may tx to medical when he is off bipap
[2020-04-03] MEDS ORDERED: Furosemide 40 MG TAB PO SCH (16:00)
[2020-04-03 18:13] LABS: Troponin I 0.481 ng/mL (< 0.028)
[2020-04-04] MEDS: methylPREDNISolone Sod Succ 40 MG VIAL IVP SCH ×5 (00:19→23:50)
[2020-04-04] MEDS: Ipratropium Bromide 2.5 ml Neb NEB SCH ×2 (00:28→07:57)
[2020-04-04 03:51] LABS: #Lymphocytes 0.6 thou/uL (1.20-3.40); #Monocytes 0.3 thou/uL (0.11-0.59); #Neutrophils 6.3 thou/uL (1.40-6.50); %Eosinophils 0.1 % (0.0-10.0); %Monocytes 4.8 % (0.0-10.0); %Neutrophils 87.1 % (42.0-75.0); Hemoglobin 12.1 g/dL (14.0-18.0); Mean Corpuscular HGB CONC 32.5 g/dL (32.0-36.0); Mean Corpuscular Hemoglobin 30.2 pg (27.0-31.0); Mean Corpuscular Volume 92.8 fL (78.0-98.0); Mean Platelet Volume 8.3 fL (7.4-10.4); Platelet Count 150 thou/uL (130-400); RBC Distribution Width 12.8 % (11.5-14.5); Red Blood Cell (RBC) Count 4.01 mill/uL (4.70-6.10); White Blood Cell (WBC) Count 7.2 thou/uL (4.8-10.8)
[2020-04-04 04:14] LABS: Anion Gap 15 mmol/L (10-20); BUN (Urea Nitrogen) 29 mg/dL (8.4-25.7); Calc. Creatinine Clearance 53 mL/min (70-130); Calcium 8.6 mg/dL (7.8-10.44); Carbon Dioxide 22 mmol/L (23-31); Chloride 105 mmol/L (98-107); Estimated GFR-MDRD 64; Glucose 164 mg/dL (83-110); Potassium 4.7 mmol/L (3.5-5.1); Sodium 137 mmol/L (136-145)
[2020-04-04] MEDS: cefTRIAXone\\ROCEPHIN 1 GM in Sodium Chloride 0.9% 100 ML IVPB SCH (06:17)
[2020-04-04] MEDS: Azithromycin 500 MG in Sodium Chloride 0.9% 250 ML 250 ML IVPB SCH (07:20)
[2020-04-04] MEDS: Famotidine/PF 20 mg/2ml Vial SLOW IVP SCH (11:08)
[2020-04-04] MEDS ORDERED: Magnesium Sulfate 4 GM in Sodium Chloride 0.9% 250 ML 250 ML IVPB SCH (13:30)
[2020-04-04] MEDS ORDERED: Furosemide 40 MG/4 ML VIAL SLOW IVP SCH (13:30)
--- NOTE | 2020-04-04 13:30 | PDOC.HOSPP ---
- Subjective Encounter Date: 04/04/20 Encounter Time: 09:40 Subjective: has sob off bipap goes into afib rvr no fever or chest pain - Objective Vital Signs & Weight: Vital Signs (12 hours) Temp Pulse Resp Pulse Ox 04/04/20 11:00 97.2 F L 04/04/20 08:01 98.2 F 04/04/20 07:57 77 28 H 97 04/04/20 07:45 98 04/04/20 03:50 98.6 F Weight Weight 168 lb 9.6 oz Most Recent Monitor Data Heart Rate from ECG 72 NIBP 105/67 NIBP BP-Mean 79 Respiration from ECG 19 SpO2 100 I&O: 04/03/20 04/04/20 04/05/20 06:59 06:59 06:59 Intake Total 1060.7 Output Total 1250 Balance -189.3 Result Diagrams: 04/04/20 03:21 04/04/20 03:21 Hospitalist ROS - Medication Medications: Active Medications Generic Name Dose Route Start Last Admin Trade Name Shamarq PRN Reason Stop Dose Admin Methylprednisolone Sodium Succinate 40 mg 04/03/20 12:00 04/04/20 11:08 Methylprednisolone Sod Succ 40 Mg Vial IVP 40 mg Q6HR CHIDI Administration Sodium Chloride 10 ml 04/03/20 09:00 04/04/20 11:09 Flush - Normal Saline 10 Ml Syringe IVF 10 ml Q12HR CHIDI Administration - Exam General Appearance: awake alert Eye: PERRL, anicteric sclera ENT: no oropharyngeal lesions, dry oral mucosa Neck: supple, no JVD Heart: RRR, no murmur Respiratory: no wheezes, no rales, rhonchi Gastrointestinal: soft, non-tender, non-distended, normal bowel sounds Extremities: no cyanosis, no edema Neurological: cranial nerve grossly intact, no focal deficits Psychiatric: normal affect, A&O x 3 Hosp A/P (1) Acute and chronic respiratory failure with hypoxia Code(s): J96.21 - ACUTE AND CHRONIC RESPIRATORY FAILURE WITH HYPOXIA Status: Acute (2) COPD exacerbation Code(s): J44.1 - CHRONIC OBSTRUCTIVE PULMONARY DISEASE W (ACUTE) EXACERBATION Status: Acute (3) A-fib Code(s): I48.91 - UNSPECIFIED ATRIAL FIBRILLATION Status: Chronic Qualifiers: Atrial fibrillation type: paroxysmal Qualified Code(s): I48.0 - Paroxysmal atrial fibrillation (4) CAD (coronary artery disease) Code(s): I25.10 - ATHSCL HEART DISEASE OF [place] CORONARY ARTERY W/O ANG PCTRS Status: Chronic Qualifiers: Coronary Disease-Associated Artery/Lesion type: bypass graft [place] vs. transplanted heart: [place] heart Associated angina: without angina Qualified Code(s): I25.810 - Atherosclerosis of coronary artery bypass graft(s) without angina pectoris (5) Chronic systolic heart failure, ACC/AHA stage C Code(s): I50.22 - CHRONIC SYSTOLIC (CONGESTIVE) HEART FAILURE Status: Chronic (6) Dyslipidemia Code(s): E78.5 - HYPERLIPIDEMIA, UNSPECIFIED Status: Chronic (7) HTN (hypertension) Code(s): I10 - ESSENTIAL (PRIMARY) HYPERTENSION Status: Chronic Qualifiers: - Plan is off and on bipap, off bipap he goes into afib with rvr add cardizem 30mg tid, if persistent afib then start cardizem 5mg/hr drip and cardio consultation. continue steroids, nebs, empiric antibiotics home meds as above prior ef of 40% on 11/2019 hemostable is on 2lts home O2 may tx to medical when he is off bipap
--- NOTE | 2020-04-04 14:21 | CON ---
DATE OF CONSULTATION: 04/04/2020 This encompassed 75 minutes time, of that time greater than 50% of time spent with the patient and/or the patient's unit in the hospital. REASON FOR CONSULTATION: COPD exacerbation. HISTORY OF PRESENT ILLNESS: The patient is a pleasant 85-year-old who was hospitalized yesterday with increasing shortness of breath. He was placed on BiPAP for COPD exacerbation. He was recently prescribed a course of steroids and antibiotics by Dr. Olmos. PAST MEDICAL HISTORY: 1. COPD. 2. Steroid dependence. 3. Polio. 4. Hypertension. 5. Osteoarthritis. 6. Nephrolithiasis. 7. Coronary artery disease. PAST SURGICAL HISTORY: 1. Right knee surgery. 2. Umbilical hernia repair. 3. Herniorrhaphy. 4. Coronary artery bypass grafting surgery x5. 5. Lithotripsy. 6. Toe amputation. SOCIAL HISTORY: Smokes 3 cigars per day. Does not consume alcohol. FAMILY MEDICAL HISTORY: Unremarkable. ALLERGIES: NONE. MEDICATIONS: Prior to admission: 1. Eliquis. 2. DuoNeb. 3. Ventolin. 4. Potassium. 5. Budesonide. 6. Albuterol. 7. Atrovent. 8. Isosorbide. 9. Lasix. 10. TriCor. 11. Lisinopril. Current inpatient medications: 1. Methylprednisolone. 2. Ceftriaxone. 3. DuoNeb. 4. He has also been on BiPAP. PHYSICAL EXAMINATION: VITAL SIGNS: Temperature 97.2, pulse 72, blood pressure 105/67, O2 saturation generally in the low 90s. GENERAL: The patient is in marked respiratory discomfort when off BiPAP. HEENT: Unremarkable. NECK: No JVD, but is using accessory sternocleidomastoid muscle. LUNGS: He has bilateral expiratory wheezes with a prolonged expiratory phase. CARDIAC: S1 and S2. Regular. ABDOMEN: Soft, nontender. EXTREMITIES: No edema. LABORATORY DATA: Sodium 137, potassium 4.7, chloride 105, CO2 of 22, BUN 29, creatinine 1.1, and glucose 164. White blood cell count 7.2, hematocrit 37.2, and platelet count 150. COVID test was negative. Chest x-ray shows hyperinflation with interstitial densities and cardiomegaly. Of note, an echocardiogram obtained a couple of months ago showed systolic dysfunction with EF of 40% to 45% with mild aortic stenosis. ASSESSMENT: 1. Chronic obstructive pulmonary disease with exacerbation. 2. Cannot rule out concurrent component of congestive heart failure. Of note, BNP was somewhat elevated when the patient was admitted. 3. Chronic atrial fibrillation. PLAN: 1. Give the patient another dose of diuretic. 2. Continue steroids and nebulization treatments, antibiotics. 3. Add one dose of magnesium sulfate. 4. I have increased his BiPAP pressures to overcome his accessory muscle use and overcome his auto PEEP. Job ID: [id number]
[2020-04-04] MEDS: Sodium Chloride 0.9% 1,000 ML IV SCH (15:13)
[2020-04-04] MEDS: Arformoterol 15 MCG/2 ML NEB NEB SCH (18:07)
[2020-04-04] MEDS: Budesonide 0.5 MG/2 ML NEB NEB SCH (18:11)
[2020-04-04] MEDS ORDERED: Budesonide 0.5 MG/2 ML NEB INH SCH (18:30)
[2020-04-04] MEDS: Cefdinir 300 MG CAP PO SCH (20:34)
[2020-04-04] MEDS: Apixaban 5 MG TAB PO SCH (20:34)
[2020-04-04] MEDS ORDERED: Lisinopril 2.5 MG TAB PO SCH (21:00)
[2020-04-05 04:13] LABS: #Lymphocytes 0.2 thou/uL (1.20-3.40); #Monocytes 0.3 thou/uL (0.11-0.59); #Neutrophils 8.4 thou/uL (1.40-6.50); %Basophils 0.1 % (0.0-1.0); %Lymphocytes 2.4 % (21.0-51.0); %Monocytes 2.9 % (0.0-10.0); %Neutrophils 94.5 % (42.0-75.0); Hemoglobin 12.2 g/dL (14.0-18.0); Mean Corpuscular Hemoglobin 30.7 pg (27.0-31.0); Mean Corpuscular Volume 93.2 fL (78.0-98.0); Mean Platelet Volume 7.9 fL (7.4-10.4); Platelet Count 141 thou/uL (130-400); RBC Distribution Width 12.6 % (11.5-14.5); Red Blood Cell (RBC) Count 3.96 mill/uL (4.70-6.10); White Blood Cell (WBC) Count 8.9 thou/uL (4.8-10.8)
[2020-04-05 04:35] LABS: Anion Gap 15 mmol/L (10-20); BUN (Urea Nitrogen) 34 mg/dL (8.4-25.7); Calc. Creatinine Clearance 54 mL/min (70-130); Calcium 8.4 mg/dL (7.8-10.44); Carbon Dioxide 22 mmol/L (23-31); Chloride 103 mmol/L (98-107); Estimated GFR-MDRD 66; Glucose 268 mg/dL (83-110); Potassium 4.1 mmol/L (3.5-5.1); Sodium 136 mmol/L (136-145)
[2020-04-05] MEDS: methylPREDNISolone Sod Succ 40 MG VIAL IVP SCH ×3 (05:53→19:09)
[2020-04-05] MEDS: Budesonide 0.5 MG/2 ML NEB NEB SCH ×2 (06:58→17:32)
[2020-04-05] MEDS: Arformoterol 15 MCG/2 ML NEB NEB SCH ×2 (06:58→19:05)
[2020-04-05] MEDS: Apixaban 5 MG TAB PO SCH ×2 (08:51→21:11)
[2020-04-05] MEDS: Aspirin 81 mg Enteric Coated Tablet PO SCH (08:52)
[2020-04-05] MEDS: Cefdinir 300 MG CAP PO SCH ×2 (08:52→21:12)
[2020-04-05] MEDS: Fenofibrate 48 MG TAB PO SCH (08:55)
[2020-04-05] MEDS: Ipratropium Bromide 2.5 ml Neb NEB SCH (11:29)
[2020-04-05] MEDS: Sodium Chloride 0.9% 1,000 ML IV SCH (11:29)
--- NOTE | 2020-04-05 12:14 | PDOC.HOSPP ---
- Subjective Encounter Date: 04/05/20 Encounter Time: 08:15 Subjective: breathing better, is off bipap from last night - Objective Vital Signs & Weight: Vital Signs (12 hours) Temp Pulse Resp Pulse Ox 04/05/20 11:18 97.8 F 04/05/20 07:32 96.4 F L 04/05/20 07:30 100 04/05/20 06:58 86 21 H 100 04/05/20 03:37 99.6 F 04/05/20 01:11 100 04/05/20 01:08 74 19 100 Weight Weight 168 lb 9.6 oz Most Recent Monitor Data Heart Rate from ECG 76 NIBP 136/67 NIBP BP-Mean 90 Respiration from ECG 16 SpO2 99 I&O: 04/04/20 04/05/20 04/06/20 06:59 06:59 06:59 Intake Total 1060.7 2430 240 Output Total 1250 2450 200 Balance -189.3 -20 40 Result Diagrams: 04/05/20 03:49 04/05/20 03:49 Hospitalist ROS - Medication Medications: Active Medications Generic Name Dose Route Start Last Admin Trade Name Freq PRN Reason Stop Dose Admin Albuterol/Ipratropium 3 ml 04/04/20 19:00 04/05/20 06:58 Ipratropium/Albuterol Sulfate 3 Ml Neb NEB 3 ml [id number] CHIDI Administration Apixaban 5 mg 04/04/20 21:00 04/05/20 08:51 Apixaban 5 Mg Tab PO 5 mg BID CHIDI Administration Arformoterol Tartrate 15 mcg 04/04/20 18:30 04/05/20 06:58 Arformoterol 15 Mcg/2 Ml Neb NEB 15 mcg BID-RT CHIDI Administration Aspirin 81 mg 04/05/20 09:00 04/05/20 08:52 Aspirin 81 Mg Enteric Coated Tablet PO 81 mg DAILY CHIDI Administration Budesonide 0.5 mg 04/04/20 18:30 04/05/20 06:58 Budesonide 0.5 Mg/2 Ml Neb NEB 0.5 mg BID-RT CHIDI Administration Cefdinir 300 mg 04/04/20 21:00 04/05/20 08:52 Cefdinir 300 Mg Cap PO 300 mg BID CHIDI Administration Diltiazem HCl 30 mg 04/04/20 15:00 04/05/20 08:52 Diltiazem Hcl 30 Mg Tablet PO 30 mg TID CHIDI Administration Fenofibrate 48 mg 04/05/20 09:00 04/05/20 08:55 Fenofibrate 48 Mg Tab PO 48 mg DAILY CHIDI Administration Isosorbide Mononitrate 60 mg 04/05/20 09:00 04/05/20 08:51 Isosorbide Mononitrate Er 30 Mg Tab PO 60 mg DAILY CHIDI Administration Methylprednisolone Sodium Succinate 40 mg 04/03/20 12:00 04/05/20 11:29 Methylprednisolone Sod Succ 40 Mg Vial IVP 40 mg Q6HR CHIDI Administration Pantoprazole Sodium 40 mg 04/05/20 09:00 04/05/20 08:52 Pantoprazole 40 Mg Tab PO 40 mg DAILY CHIDI Administration Sodium Chloride 10 ml 04/03/20 09:00 04/05/20 08:53 Flush - Normal Saline 10 Ml Syringe IVF 10 ml Q12HR CHIDI Administration - Exam General Appearance: awake alert Eye: PERRL, anicteric sclera ENT: no oropharyngeal lesions, dry oral mucosa Neck: supple, no JVD Heart: no murmur, irregular Respiratory: no wheezes, no rales, rhonchi Gastrointestinal: soft, non-tender, non-distended, normal bowel sounds Extremities: no cyanosis, no edema Neurological: cranial nerve grossly intact, no focal deficits Psychiatric: A&O x 3 Hosp A/P (1) Acute and chronic respiratory failure with hypoxia Code(s): J96.21 - ACUTE AND CHRONIC RESPIRATORY FAILURE WITH HYPOXIA Status: Acute (2) COPD exacerbation Code(s): J44.1 - CHRONIC OBSTRUCTIVE PULMONARY DISEASE W (ACUTE) EXACERBATION Status: Acute (3) A-fib Code(s): I48.91 - UNSPECIFIED ATRIAL FIBRILLATION Status: Chronic Qualifiers: Atrial fibrillation type: paroxysmal Qualified Code(s): I48.0 - Paroxysmal atrial fibrillation (4) CAD (coronary artery disease) Code(s): I25.10 - ATHSCL HEART DISEASE OF [place] CORONARY ARTERY W/O ANG PCTRS Status: Chronic Qualifiers: Coronary Disease-Associated Artery/Lesion type: bypass graft [place] vs. transplanted heart: [place] heart Associated angina: without angina Qualified Code(s): I25.810 - Atherosclerosis of coronary artery bypass graft(s) without angina pectoris (5) Chronic systolic heart failure, ACC/AHA stage C Code(s): I50.22 - CHRONIC SYSTOLIC (CONGESTIVE) HEART FAILURE Status: Chronic (6) Dyslipidemia Code(s): E78.5 - HYPERLIPIDEMIA, UNSPECIFIED Status: Chronic (7) HTN (hypertension) Code(s): I10 - ESSENTIAL (PRIMARY) HYPERTENSION Status: Chronic Qualifiers: - Plan is off bipap from yesterday evening continue cardizem 30mg tid for now, steroids, nebs, empiric antibiotics home meds as above prior ef of 40% on 11/2019 hemostable is on 2lts home O2 may tx to tele
--- NOTE | 2020-04-05 14:20 | PRG ---
DATE OF SERVICE: 04/05/2020 SUBJECTIVE: Mr. Israel feels better. He was moved out of [facility] today. He has not required a BiPAP last night. OBJECTIVE: VITAL SIGNS: Temperature 98.1, pulse 90, blood pressure 164/72. HEENT: Unremarkable. NECK: No JVD. LUNGS: Clear, but distant breath sounds. CARDIAC: S1, S2. Regular. ABDOMEN: Soft. EXTREMITIES: No edema. LABORATORY DATA: White blood cell count 8.9, hematocrit 36.9 and platelet count 141. Sodium 136, potassium 4.1, BUN 34, creatinine 1.1, glucose 268. ASSESSMENT: Chronic obstructive pulmonary disease with exacerbation. PLAN: Continue nebulization treatments, steroids, Brovana and Pulmicort. Expected to be in the hospital, at least 2 more days. Job ID: [id number]
[2020-04-06] MEDS: methylPREDNISolone Sod Succ 40 MG VIAL IVP SCH ×5 (01:25→23:54)
[2020-04-06 04:24] LABS: #Lymphocytes 0.2 thou/uL (1.20-3.40); #Monocytes 0.3 thou/uL (0.11-0.59); #Neutrophils 7.4 thou/uL (1.40-6.50); %Eosinophils 0.1 % (0.0-10.0); %Lymphocytes 2.4 % (21.0-51.0); %Monocytes 4.1 % (0.0-10.0); %Neutrophils 93.4 % (42.0-75.0); Hemoglobin 11.2 g/dL (14.0-18.0); Mean Corpuscular HGB CONC 32.3 g/dL (32.0-36.0); Mean Corpuscular Hemoglobin 30.2 pg (27.0-31.0); Mean Corpuscular Volume 93.6 fL (78.0-98.0); Mean Platelet Volume 8.1 fL (7.4-10.4); Platelet Count 146 thou/uL (130-400); RBC Distribution Width 12.6 % (11.5-14.5); Red Blood Cell (RBC) Count 3.72 mill/uL (4.70-6.10); White Blood Cell (WBC) Count 7.9 thou/uL (4.8-10.8)
[2020-04-06 04:44] LABS: Anion Gap 13 mmol/L (10-20); BUN (Urea Nitrogen) 31 mg/dL (8.4-25.7); Calc. Creatinine Clearance 56 mL/min (70-130); Calcium 8.4 mg/dL (7.8-10.44); Carbon Dioxide 25 mmol/L (23-31); Chloride 102 mmol/L (98-107); Estimated GFR-MDRD 68; Glucose 188 mg/dL (83-110); Potassium 4.2 mmol/L (3.5-5.1); Sodium 136 mmol/L (136-145)
[2020-04-06] MEDS: Arformoterol 15 MCG/2 ML NEB NEB SCH ×2 (07:28→18:57)
[2020-04-06] MEDS: Budesonide 0.5 MG/2 ML NEB NEB SCH ×2 (07:29→18:56)
[2020-04-06] MEDS: Aspirin 81 mg Enteric Coated Tablet PO SCH (09:06)
[2020-04-06] MEDS: Cefdinir 300 MG CAP PO SCH ×2 (09:06→21:19)
[2020-04-06] MEDS: Apixaban 5 MG TAB PO SCH ×2 (09:07→21:19)
[2020-04-06] MEDS: Fenofibrate 48 MG TAB PO SCH (09:07)
--- NOTE | 2020-04-06 14:58 | PRG ---
DATE OF SERVICE: 04/06/2020 SUBJECTIVE: Mr. Israel says he is feeling better. OBJECTIVE: VITAL SIGNS: He is afebrile. Heart rate is in the 90s, respiratory rate is 18, oximetry is 98, and blood pressure 142/68. LUNGS: Remarkable for just a few wheezes. HEART: Regular rhythm. ABDOMEN: Soft. LABORATORY DATA: Electrolytes are unremarkable. Creatinine is 1.0. White count 7.9, hemoglobin 11.2, and platelets 146. IMPRESSION AND PLAN: Chronic obstructive pulmonary disease exacerbation. When we are taking history he says that he went to bed feeling fine and woke up with a racing heart. He could not feel his racing heart, but when he got short of breath coming back from the bathroom, he put on his oximeter and notices heart rate was in the 130s, making him wonder if he was not in atrial fibrillation while he was sleeping. Cardiology, he tells me has been consulted. I will follow with the other physicians. Job ID: [id number]
--- NOTE | 2020-04-06 18:36 | PDOC.HOSPP ---
- Subjective Encounter Date: 04/06/20 Subjective: Says he definitely feels much better than he did when he initially arrived here. He is still very short of breath just getting to the bathroom and back to the bed without oxygen. Trying to get a longer tubing. Says this is the way he was at home too. He feels very frustrated by the fact that he is no longer able to do the things that he needs to do around the home. He is dependent on his and his neighbors and that is very hurtful to his pride. - Objective Vital Signs & Weight: Vital Signs (12 hours) Temp Pulse Resp BP Pulse Ox 04/06/20 15:28 97.6 F 95 16 148/74 H 99 04/06/20 14:15 88 24 H 97 04/06/20 12:33 97.6 F 96 18 142/68 H 98 04/06/20 07:54 97.4 F L 100 20 141/68 H 96 04/06/20 07:28 91 22 H 98 Weight Weight 168 lb 9.6 oz Most Recent Monitor Data Heart Rate from ECG 76 NIBP 136/67 NIBP BP-Mean 90 Respiration from ECG 16 SpO2 99 I&O: 04/05/20 04/06/20 04/07/20 06:59 06:59 06:59 Intake Total 2430 1450 240 Output Total 2450 1600 Balance -20 -150 240 Result Diagrams: 04/06/20 04:10 04/06/20 04:10 Hospitalist ROS - Medication Medications: Active Medications Generic Name Dose Route Start Last Admin Trade Name Freq PRN Reason Stop Dose Admin Albuterol/Ipratropium 3 ml 04/04/20 19:00 04/06/20 14:15 Ipratropium/Albuterol Sulfate 3 Ml Neb NEB 3 ml [id number] CHIDI Administration Apixaban 5 mg 04/04/20 21:00 04/06/20 09:07 Apixaban 5 Mg Tab PO 5 mg BID CHIDI Administration Arformoterol Tartrate 15 mcg 04/04/20 18:30 04/06/20 07:28 Arformoterol 15 Mcg/2 Ml Neb NEB 15 mcg BID-RT CHIDI Administration Aspirin 81 mg 04/05/20 09:00 04/06/20 09:06 Aspirin 81 Mg Enteric Coated Tablet PO 81 mg DAILY CHIDI Administration Budesonide 0.5 mg 04/04/20 18:30 04/06/20 07:29 Budesonide 0.5 Mg/2 Ml Neb NEB 0.5 mg BID-RT CHIDI Administration Cefdinir 300 mg 04/04/20 21:00 04/06/20 09:06 Cefdinir 300 Mg Cap PO 300 mg BID CHIDI Administration Diltiazem HCl 30 mg 04/04/20 15:00 04/06/20 15:28 Diltiazem Hcl 30 Mg Tablet PO 30 mg TID CHIDI Administration Fenofibrate 48 mg 04/05/20 09:00 04/06/20 09:07 Fenofibrate 48 Mg Tab PO 48 mg DAILY CHIDI Administration Isosorbide Mononitrate 60 mg 04/05/20 09:00 04/06/20 09:06 Isosorbide Mononitrate Er 30 Mg Tab PO 60 mg DAILY CHIDI Administration Methylprednisolone Sodium Succinate 40 mg 04/03/20 12:00 04/06/20 17:49 Methylprednisolone Sod Succ 40 Mg Vial IVP 40 mg Q6HR CHIDI Administration Pantoprazole Sodium 40 mg 04/05/20 09:00 04/06/20 09:07 Pantoprazole 40 Mg Tab PO 40 mg DAILY CHIDI Administration Sodium Chloride 10 ml 04/03/20 09:00 04/06/20 09:07 Flush - Normal Saline 10 Ml Syringe IVF 10 ml Q12HR CHIDI Administration - Exam General Appearance: NAD, awake alert Heart: RRR, no murmur, no gallops, no rubs, normal peripheral pulses Respiratory: no ronchi, normal chest expansion, no tachypnea, rales, wheezes Gastrointestinal: soft, non-tender, non-distended, normal bowel sounds, no palpable masses, no hepatomegaly, no splenomegaly, no bruit Extremities: no cyanosis, no clubbing, no edema Skin: normal turgor Musculoskeletal: normal tone Psychiatric: normal affect, normal behavior, A&O x 3 Hosp A/P (1) Acute and chronic respiratory failure with hypoxia Code(s): J96.21 - ACUTE AND CHRONIC RESPIRATORY FAILURE WITH HYPOXIA Status: Acute (2) COPD exacerbation Code(s): J44.1 - CHRONIC OBSTRUCTIVE PULMONARY DISEASE W (ACUTE) EXACERBATION Status: Acute (3) A-fib Code(s): I48.91 - UNSPECIFIED ATRIAL FIBRILLATION Status: Chronic Qualifiers: Atrial fibrillation type: paroxysmal Qualified Code(s): I48.0 - Paroxysmal atrial fibrillation (4) Anticoagulant long-term use Code(s): Z79.01 - HALF-WAY (CURRENT) USE OF ANTICOAGULANTS Status: Chronic (5) CAD (coronary artery disease) Code(s): I25.10 - ATHSCL HEART DISEASE OF [place] CORONARY ARTERY W/O ANG PCTRS Status: Chronic Qualifiers: Coronary Disease-Associated Artery/Lesion type: bypass graft [place] vs. transplanted heart: [place] heart Associated angina: without angina Qualified Code(s): I25.810 - Atherosclerosis of coronary artery bypass graft(s) without angina pectoris (6) Chronic systolic heart failure, ACC/AHA stage C Code(s): I50.22 - CHRONIC SYSTOLIC (CONGESTIVE) HEART FAILURE Status: Chronic (7) Dyslipidemia Code(s): E78.5 - HYPERLIPIDEMIA, UNSPECIFIED Status: Chronic (8) HTN (hypertension) Code(s): I10 - ESSENTIAL (PRIMARY) HYPERTENSION Status: Chronic Qualifiers: (9) Type [address] elevation Code(s): I21.A1 - MYOCARDIAL INFARCTION TYPE 2 Status: Acute (10) CKD (chronic kidney disease), stage III Code(s): N18.30 - CHRONIC KIDNEY DISEASE, STAGE 3 UNSPECIFIED Status: Acute - Plan Acute on chronic respiratory failure with hypoxia: Continue supplemental oxygen. Sounds like he will need it all the time with the portable unit at home at this rate. Secondary to COPD exacerbation. COPD exacerbation: Continue with supplemental oxygen, bronchodilators, steroids. Atrial fibrillation: Appears to have generally good rate control. He does have some elevations in rate with the steroids and stimulant effect of the bronchodilators at times. Continue anticoagulation. CKD stage III: Appears to be at his baseline GFR. Hypertension: Stable on home medications. NSTEMI type II: Secondary to hypoxic respiratory failure. Stable.
[2020-04-07] MEDS: methylPREDNISolone Sod Succ 40 MG VIAL IVP SCH ×4 (06:25→23:16)
[2020-04-07] MEDS: Arformoterol 15 MCG/2 ML NEB NEB SCH ×2 (08:40→18:28)
[2020-04-07] MEDS: Budesonide 0.5 MG/2 ML NEB NEB SCH ×2 (08:42→18:29)
--- NOTE | 2020-04-07 09:26 | CON ---
DATE OF CONSULTATION: REASON FOR CONSULTATION: Atrial fibrillation and COPD. HISTORY OF PRESENT ILLNESS: Mr. Israel is a very pleasant 85-year-old gentleman, who I have seen in the past. He has a history of ischemic cardiomyopathy, status post bypass surgery in addition to chronic atrial fibrillation. He is currently on anticoagulation therapy. He recently presented with increased shortness of breath and low oxygenation. His heart responded with tachycardia. He appears to be better rate controlled on p.o. Cardizem. No current complaints of chest pain pressure. His troponin was mildly elevated likely due to demand ischemia. PAST MEDICAL HISTORY: Remote tobacco abuse, hypertension, ischemic cardiomyopathy, chronic atrial fibrillation, COPD, bypass surgery, hyperlipidemia, and hypertension. HOME MEDICATIONS: Include; 1. Prednisone. 2. Lasix. 3. Eliquis. 4. Lisinopril. 5. Isosorbide. 6. Ventolin. 7. DuoNeb. 8. Fenofibrate. 9. Atorvastatin. 10. Aspirin. SOCIAL HISTORY: Quit all tobacco products 1 year ago. FAMILY HISTORY: Positive for CAD. REVIEW OF SYSTEMS: A 10-point review of systems is reviewed as above, otherwise negative. PHYSICAL EXAMINATION: GENERAL: Patient is a pleasant male, who is in no acute distress. The patient appears their stated age. VITAL SIGNS: Blood pressure 125/75, pulse 83, and temperature 97.7. NEUROLOGIC: The patient is alert and oriented x3 with no focal neurologic deficits. HEENT: Sclerae without icterus. Mouth has moist mucous membranes with normal pallor. NECK: No JVD. Carotid upstroke brisk. No bruits bilaterally. LUNGS: Wheezing noted bilaterally. BACK: No scoliosis or kyphosis. HEART: Irregularly irregular. ABDOMEN: Soft, nontender, nondistended. No peritoneal signs present. No hepatosplenomegaly. No abnormal striae. EXTREMITIES: 2+ femoral and 2+ dorsalis pedis pulses. No cyanosis, clubbing, or edema. SKIN: No gross abnormalities. LABORATORY DATA: Peak troponin 0.4. Creatinine 1.03. Most recent echo with LVEF 40% to 45% with grade 1 diastolic dysfunction, moderately dilated left atrium. Mild MR, TR, dated 06/03/2019. IMPRESSION: 1. Atrial fibrillation with rapid ventricular response. 2. Chronic obstructive pulmonary disease exacerbation. 3. Ischemic cardiomyopathy. RECOMMENDATIONS: The patient appears to be fairly well controlled heart rate leach. We will switch his p.o. Cardizem to long-acting Cardizem. We will also add digoxin loading at 0.25 mg for a total of 0.5 mg IV. Continue nebulizer treatments in addition to a steroid therapy. The patient has opted for conservative therapy in the past. Elevated troponin secondary to demand ischemia from recent COPD exacerbation. Job ID: [id number]
[2020-04-07] MEDS: Cefdinir 300 MG CAP PO SCH ×2 (09:32→20:33)
[2020-04-07] MEDS: Apixaban 5 MG TAB PO SCH ×2 (09:32→20:33)
[2020-04-07] MEDS: Aspirin 81 mg Enteric Coated Tablet PO SCH (09:32)
[2020-04-07] MEDS: Digoxin 0.25 MG TAB PO SCH ×2 (09:33→15:49)
[2020-04-07] MEDS: Fenofibrate 48 MG TAB PO SCH (09:33)
--- NOTE | 2020-04-07 18:34 | PDOC.HOSPP ---
- Subjective Encounter Date: 04/07/20 Subjective: Continues to have some significant dyspnea on exertion. - Objective Vital Signs & Weight: Vital Signs (12 hours) Temp Pulse Resp BP BP Pulse Ox 04/07/20 18:26 79 20 97 04/07/20 15:50 97.5 F L 98 25 H 152/72 H 96 04/07/20 15:49 97 04/07/20 13:35 77 20 97 04/07/20 11:52 97.4 F L 91 21 H 124/58 L 99 04/07/20 09:33 83 04/07/20 08:40 79 22 H 98 04/07/20 07:25 97.7 F 83 16 125/75 94 L Weight Weight 168 lb 9.6 oz Most Recent Monitor Data Heart Rate from ECG 76 NIBP 136/67 NIBP BP-Mean 90 Respiration from ECG 16 SpO2 99 I&O: 04/06/20 04/07/20 04/08/20 06:59 06:59 06:59 Intake Total 1450 900 Output Total 1600 300 Balance -150 600 Result Diagrams: 04/06/20 04:10 04/06/20 04:10 Hospitalist ROS - Medication Medications: Active Medications Generic Name Dose Route Start Last Admin Trade Name Freq PRN Reason Stop Dose Admin Albuterol/Ipratropium 3 ml 04/04/20 19:00 04/07/20 18:26 Ipratropium/Albuterol Sulfate 3 Ml Neb NEB 3 ml [id number] CHIDI Administration Apixaban 5 mg 04/04/20 21:00 04/07/20 09:32 Apixaban 5 Mg Tab PO 5 mg BID CHIDI Administration Arformoterol Tartrate 15 mcg 04/04/20 18:30 04/07/20 18:28 Arformoterol 15 Mcg/2 Ml Neb NEB 15 mcg BID-RT CHIDI Administration Aspirin 81 mg 04/05/20 09:00 04/07/20 09:32 Aspirin 81 Mg Enteric Coated Tablet PO 81 mg DAILY CHIDI Administration Budesonide 0.5 mg 04/04/20 18:30 04/07/20 18:29 Budesonide 0.5 Mg/2 Ml Neb NEB 0.5 mg BID-RT CHIDI Administration Cefdinir 300 mg 04/04/20 21:00 04/07/20 09:32 Cefdinir 300 Mg Cap PO 300 mg BID CHIDI Administration Diltiazem HCl 120 mg 04/07/20 09:00 04/07/20 09:33 Diltiazem Cd 120 Mg Cap PO 120 mg DAILY CHIDI Administration Fenofibrate 48 mg 04/05/20 09:00 04/07/20 09:33 Fenofibrate 48 Mg Tab PO 48 mg DAILY CHIDI Administration Isosorbide Mononitrate 60 mg 04/05/20 09:00 04/07/20 09:32 Isosorbide Mononitrate Er 30 Mg Tab PO 60 mg DAILY CHIDI Administration Methylprednisolone Sodium Succinate 40 mg 04/03/20 12:00 04/07/20 17:16 Methylprednisolone Sod Succ 40 Mg Vial IVP 40 mg Q6HR CHIDI Administration Pantoprazole Sodium 40 mg 04/05/20 09:00 04/07/20 09:33 Pantoprazole 40 Mg Tab PO 40 mg DAILY CHIDI Administration Sodium Chloride 10 ml 04/03/20 09:00 04/07/20 09:34 Flush - Normal Saline 10 Ml Syringe IVF 10 ml Q12HR CHIDI Administration - Exam General Appearance: NAD, awake alert Heart: RRR, no murmur, no gallops, no rubs, normal peripheral pulses Respiratory: rales, tachypneic, wheezes Gastrointestinal: soft, non-tender, non-distended, normal bowel sounds, no palpable masses, no hepatomegaly, no splenomegaly, no bruit Extremities: no cyanosis, no clubbing, no edema Skin: normal turgor Musculoskeletal: generalized weakness Psychiatric: normal affect, normal behavior, A&O x 3 Hosp A/P (1) Acute and chronic respiratory failure with hypoxia Code(s): J96.21 - ACUTE AND CHRONIC RESPIRATORY FAILURE WITH HYPOXIA Status: Acute (2) COPD exacerbation Code(s): J44.1 - CHRONIC OBSTRUCTIVE PULMONARY DISEASE W (ACUTE) EXACERBATION Status: Acute (3) A-fib Code(s): I48.91 - UNSPECIFIED ATRIAL FIBRILLATION Status: Chronic Qualifiers: Atrial fibrillation type: paroxysmal Qualified Code(s): I48.0 - Paroxysmal atrial fibrillation (4) Anticoagulant long-term use Code(s): Z79.01 - CORONARY CLINICAL SPECIALIST (CURRENT) USE OF ANTICOAGULANTS Status: Chronic (5) CAD (coronary artery disease) Code(s): I25.10 - ATHSCL HEART DISEASE OF [place] CORONARY ARTERY W/O ANG PCTRS Status: Chronic Qualifiers: Coronary Disease-Associated Artery/Lesion type: bypass graft [place] vs. transplanted heart: [place] heart Associated angina: without angina Qualified Code(s): I25.810 - Atherosclerosis of coronary artery bypass graft(s) without angina pectoris (6) Chronic systolic heart failure, ACC/AHA stage C Code(s): I50.22 - CHRONIC SYSTOLIC (CONGESTIVE) HEART FAILURE Status: Chronic (7) Dyslipidemia Code(s): E78.5 - HYPERLIPIDEMIA, UNSPECIFIED Status: Chronic (8) HTN (hypertension) Code(s): I10 - ESSENTIAL (PRIMARY) HYPERTENSION Status: Chronic Qualifiers: (9) Type [address] elevation Code(s): I21.A1 - MYOCARDIAL INFARCTION TYPE 2 Status: Acute (10) CKD (chronic kidney disease), stage III Code(s): N18.30 - CHRONIC KIDNEY DISEASE, STAGE 3 UNSPECIFIED Status: Acute - Plan Acute on chronic respiratory failure with hypoxia: Continue supplemental oxygen. Sounds like he will need it all the time with the portable unit at home at this rate. Secondary to COPD exacerbation. COPD exacerbation: Continue with supplemental oxygen, bronchodilators, steroids. Atrial fibrillation: Appears to have generally good rate control. He does have some elevations in rate with the steroids and stimulant effect of the bronchodilators at times. Continue anticoagulation. Appreciate cardiology input. Digoxin has been added. CKD stage III: Appears to be at his baseline GFR. Hypertension: Stable on home medications. NSTEMI type II: Secondary to demand ischemia from hypoxic respiratory failure. Stable.
--- NOTE | 2020-04-07 21:24 | PDOC.EVN ---
Event Note - Event Note Event Note: Per the patient's request, I called his and had a very long conversation with her about his condition. She doesn't believe comprehends how ill he really is. She has seen steady decline for a long while and doesn't feel like he has long. She would be interested in hospice, but doesn't think he would agree to it. Both she and the patient said it is extremely difficult for her to care for him because she has her own health problems. She requested palliative care team input.
[2020-04-08] MEDS: methylPREDNISolone Sod Succ 40 MG VIAL IVP SCH ×2 (06:02→13:19)
[2020-04-08] MEDS: Arformoterol 15 MCG/2 ML NEB NEB SCH ×2 (06:48→18:24)
[2020-04-08] MEDS: Budesonide 0.5 MG/2 ML NEB NEB SCH ×2 (06:48→18:28)
[2020-04-08] MEDS: Fenofibrate 48 MG TAB PO SCH (08:57)
[2020-04-08] MEDS: Cefdinir 300 MG CAP PO SCH ×2 (08:57→20:46)
[2020-04-08] MEDS: Aspirin 81 mg Enteric Coated Tablet PO SCH (08:57)
[2020-04-08] MEDS: Apixaban 5 MG TAB PO SCH ×2 (08:57→20:46)
--- NOTE | 2020-04-08 16:39 | PRG ---
DATE OF SERVICE: 04/08/2020 SUBJECTIVE: Harrison Israel is reasonably stable. He is always short of breath at rest. I had a long discussion about his functional status at home. He is still trying to take care of horses and do all the things that [place] has to do [place], but he is starting to realize that he cannot do that. I do want him to stay active. In last visit in the office, we had a long discussion about exercise. He did have an exercise bicycle in the house, but his did not like it in the house, so he moved it up the garage. Once he moved it up the garage, he quit riding it. OBJECTIVE: VITAL SIGNS: He is afebrile, heart rate is 90, respiratory rate is 24, oximetry is 100%. LUNGS: Remarkable for prolonged expiratory phase. We will switch him off IV to p.o. steroids today. I do believe that atrial fibrillation rate control is the biggest issue leading to this hospitalization. He went to bed, feeling fine, he woke up short of breath with a rapid pulse by his oximeter measurements. Hopefully, he will be stable enough to go home by this weekend. He has been on hospice in the past to help pay for things at home and get more frequent visits, but he got rid of the hospice company, because he said he was not ready to give up. Job ID: [id number]
--- NOTE | 2020-04-08 16:45 | PDOC.HOSPP ---
- Subjective Encounter Date: 04/08/20 Encounter Time: 10:00 Subjective: Patient seen for follow-up regarding acute on chronic hypoxic respiratory failure. He reports feeling short of breath last night. Reports feeling better today. - Objective Vital Signs & Weight: Vital Signs (12 hours) Temp Pulse Resp BP Pulse Ox 04/08/20 12:33 80 20 04/08/20 08:57 90 04/08/20 08:50 97.4 F L 90 24 H 136/62 100 04/08/20 08:00 100 04/08/20 06:48 81 16 Weight Weight 168 lb 9.6 oz Most Recent Monitor Data Heart Rate from ECG 76 NIBP 136/67 NIBP BP-Mean 90 Respiration from ECG 16 SpO2 99 I&O: 04/07/20 04/08/20 04/09/20 06:59 06:59 06:59 Intake Total 900 2280 Output Total 300 1400 Balance 600 880 Result Diagrams: 04/06/20 04:10 04/06/20 04:10 Additional Labs: Labs and MAR reviewed by me EKG Reviewed by me: Yes (Telemetry: La connelly) Hospitalist ROS - Review of Systems Respiratory: reports: cough, dry, SOB with excertion. denies: shortness of breath, hemoptysis, pleuritic pain, sputum, wheezing Cardiovascular: denies: chest pain, palpitations, orthopnea, paroxysmal noc. dyspnea, edema, light headedness - Medication Medications: Active Medications Generic Name Dose Route Start Last Admin Trade Name Freq PRN Reason Stop Dose Admin Albuterol/Ipratropium 3 ml 04/04/20 19:00 04/08/20 12:33 Ipratropium/Albuterol Sulfate 3 Ml Neb NEB 3 ml [id number] CHIDI Administration Apixaban 5 mg 04/04/20 21:00 04/08/20 08:57 Apixaban 5 Mg Tab PO 5 mg BID CHIDI Administration Arformoterol Tartrate 15 mcg 04/04/20 18:30 04/08/20 06:48 Arformoterol 15 Mcg/2 Ml Neb NEB 15 mcg BID-RT CHIDI Administration Aspirin 81 mg 04/05/20 09:00 04/08/20 08:57 Aspirin 81 Mg Enteric Coated Tablet PO 81 mg DAILY CHIDI Administration Budesonide 0.5 mg 04/04/20 18:30 04/08/20 06:48 Budesonide 0.5 Mg/2 Ml Neb NEB 0.5 mg BID-RT CHIDI Administration Cefdinir 300 mg 04/04/20 21:00 04/08/20 08:57 Cefdinir 300 Mg Cap PO 300 mg BID CHIDI Administration Diltiazem HCl 120 mg 04/07/20 09:00 04/08/20 08:57 Diltiazem Cd 120 Mg Cap PO 120 mg DAILY CHIDI Administration Fenofibrate 48 mg 04/05/20 09:00 04/08/20 08:57 Fenofibrate 48 Mg Tab PO 48 mg DAILY CHIDI Administration Isosorbide Mononitrate 60 mg 04/05/20 09:00 04/08/20 08:57 Isosorbide Mononitrate Er 30 Mg Tab PO 60 mg DAILY CHIDI Administration Pantoprazole Sodium 40 mg 04/05/20 09:00 04/08/20 08:57 Pantoprazole 40 Mg Tab PO 40 mg DAILY CHIDI Administration Sodium Chloride 10 ml 04/03/20 09:00 04/08/20 08:58 Flush - Normal Saline 10 Ml Syringe IVF 10 ml Q12HR CHIDI Administration Sodium Chloride 10 ml 04/03/20 06:45 04/08/20 06:03 Flush - Normal Saline 10 Ml Syringe IVF 10 ml PRN PRN Administration Saline Flush - Exam General Appearance: awake alert Eye: anicteric sclera ENT: moist mucosa Neck: supple Heart: irregular Respiratory: CTAB Gastrointestinal: soft, non-tender Extremities: no cyanosis Skin: no rashes Psychiatric: normal affect, normal behavior Hosp A/P (1) Acute and chronic respiratory failure with hypoxia Code(s): J96.21 - ACUTE AND CHRONIC RESPIRATORY FAILURE WITH HYPOXIA Status: Acute (2) Atrial fibrillation with RVR Code(s): I48.91 - UNSPECIFIED ATRIAL FIBRILLATION Status: Acute (3) COPD exacerbation Code(s): J44.1 - CHRONIC OBSTRUCTIVE PULMONARY DISEASE W (ACUTE) EXACERBATION Status: Acute (4) CAD (coronary artery disease) Code(s): I25.10 - ATHSCL HEART DISEASE OF [place] CORONARY ARTERY W/O ANG PCTRS Status: Chronic Qualifiers: Coronary Disease-Associated Artery/Lesion type: bypass graft [place] vs. transplanted heart: [place] heart Associated angina: without angina Qualified Code(s): I25.810 - Atherosclerosis of coronary artery bypass graft(s) without angina pectoris (5) Dyslipidemia Code(s): E78.5 - HYPERLIPIDEMIA, UNSPECIFIED Status: Chronic (6) HTN (hypertension) Code(s): I10 - ESSENTIAL (PRIMARY) HYPERTENSION Status: Chronic Qualifiers: - Plan Acute on chronic respiratory failure with hypoxia: Patient is slowly improving, continue oxygen, steroids and bronchodilators for COPD exacerbation. COPD exacerbation: Clinically improving. Atrial fibrillation: Rate controlled. CKD stage III: Appears to be at his baseline GFR. Hypertension: Stable on home medications. NSTEMI type II: Secondary to demand ischemia from hypoxic respiratory failure. Stable.
[2020-04-08] MEDS: guaiFENesin ER 600 MG TAB PO SCH (20:46)
--- NOTE | 2020-04-09 05:20 | PRG ---
DATE OF SERVICE: 04/08/2020 SUBJECTIVE: Mr. Israel today is complaining of shortness of breath. Heart rate appears more stable on medical therapy. No other complaints present. OBJECTIVE: VITAL SIGNS: Blood pressure 143/63, pulse 73, temperature 98.1. LUNGS: Rhonchi and rales bilaterally. HEART: Irregular, regular. ABDOMEN: Soft, nontender, nondistended. EXTREMITIES: No edema. PERTINENT LABORATORY DATA: Hemoglobin 11.2. Creatinine 1.03. IMPRESSION: 1. Chronic obstructive pulmonary disease exacerbation. 2. Ischemic cardiomyopathy. 3. Coronary artery disease. 4. Remote tobacco abuse. RECOMMENDATIONS: We will continue aggressive pulmonary support. Heart rate appears stable. Current cardiac medications include the following: Aspirin 81 q.a.m., diltiazem 120 daily, isosorbide 60 daily. I discussed DNR status with Mr. Israel. He states he has a DNR on file. The patient does not wish to be intubated or resuscitated. No cardioversion or compressions. We will honor the patient's wishes. Would be okay from my standpoint to transfer to medical, given that his heart rate appears more stable. Job ID: [id number]
[2020-04-09] MEDS: Arformoterol 15 MCG/2 ML NEB NEB SCH ×2 (07:58→19:28)
[2020-04-09] MEDS: Budesonide 0.5 MG/2 ML NEB NEB SCH ×2 (07:58→19:30)
[2020-04-09] MEDS ORDERED: predniSONE 20 MG TAB PO SCH (08:00)
[2020-04-09] MEDS: Aspirin 81 mg Enteric Coated Tablet PO SCH (09:40)
[2020-04-09] MEDS: predniSONE 20 MG TAB PO SCH (09:40)
[2020-04-09] MEDS: Cefdinir 300 MG CAP PO SCH ×2 (09:40→20:52)
[2020-04-09] MEDS: guaiFENesin ER 600 MG TAB PO SCH ×2 (09:41→20:53)
[2020-04-09] MEDS: Fenofibrate 48 MG TAB PO SCH (09:41)
[2020-04-09] MEDS: Apixaban 5 MG TAB PO SCH ×2 (09:41→20:52)
--- NOTE | 2020-04-09 11:31 | PDOC.FMACP ---
Advance Care Planning - Problem (1) Palliative care encounter Status: Acute Code(s): Z51.5 - ENCOUNTER FOR PALLIATIVE CARE (2) Acute and chronic respiratory failure with hypoxia Status: Acute Code(s): J96.21 - ACUTE AND CHRONIC RESPIRATORY FAILURE WITH HYPOXIA (3) COPD exacerbation Status: Acute Code(s): J44.1 - CHRONIC OBSTRUCTIVE PULMONARY DISEASE W (ACUTE) EXACERBATION (4) A-fib Status: Chronic Code(s): I48.91 - UNSPECIFIED ATRIAL FIBRILLATION Qualifiers: Atrial fibrillation type: paroxysmal Qualified Code(s): I48.0 - Paroxysmal atrial fibrillation (5) Anticoagulant long-term use Status: Chronic Code(s): Z79.01 - SNF (CURRENT) USE OF ANTICOAGULANTS (6) Chronic systolic heart failure, ACC/AHA stage C Status: Chronic Code(s): I50.22 - CHRONIC SYSTOLIC (CONGESTIVE) HEART FAILURE - Note Summary: Advanced Care Planning was discussed. The diagnosis, prognosis and goals of care were discussed. Appropriate forms and documentation to accomplish the goals of care were discussed. All questions were answered. The Palliative Care Team will be engaged to assist with completion of any outstanding forms that are needed.
--- NOTE | 2020-04-09 15:29 | PRG ---
DATE OF SERVICE: 04/09/2020 SUBJECTIVE: Harrison Israel remains stable. He says he actually feels pretty good. He has been walking around the room. OBJECTIVE: VITAL SIGNS: He is afebrile. Heart rate is in the 80s, respiratory rates in the 20s, oximetry is 95% on 2 L, and blood pressure 135/62. LUNGS: Remarkable for distant breath sounds. HEART: Irregular rhythm. ABDOMEN: Soft. I did confirm with him that he wants to remain a do not resuscitate patient. LABORATORY DATA: No new lab. IMPRESSION: 1. Atrial fibrillation that was transiently uncontrolled with regard to rate leading to his hospitalization. 2. Severe chronic obstructive pulmonary disease, chronic hypoxemic respiratory failure, on oxygen at home. It would be reasonable to keep him on 10 mg a day of prednisone. It could taper over 2 weeks. Probably, he will be stable to go home with hospice, which is his request. He has been on hospice before and decided he did not like that, but he is willing to try again. Job ID: [id number]
--- NOTE | 2020-04-09 18:07 | PDOC.HOSPP ---
- Subjective Encounter Date: 04/09/20 Encounter Time: 11:00 Subjective: Patient seen in follow-up for respiratory failure. Reports feeling better today. - Objective Vital Signs & Weight: Vital Signs (12 hours) Temp Pulse Resp BP Pulse Ox 04/09/20 16:15 98.0 F 73 18 130/64 95 04/09/20 14:03 79 16 04/09/20 12:00 97.9 F 82 24 H 135/62 95 04/09/20 09:42 97.9 F 80 24 H 141/76 H 98 04/09/20 08:00 98 04/09/20 07:58 65 16 Weight Weight 168 lb 9.6 oz Most Recent Monitor Data Heart Rate from ECG 76 NIBP 136/67 NIBP BP-Mean 90 Respiration from ECG 16 SpO2 99 I&O: 04/08/20 04/09/20 04/10/20 06:59 06:59 06:59 Intake Total 2280 1250 Output Total 1400 1750 Balance 880 -500 Result Diagrams: 04/06/20 04:10 04/06/20 04:10 Additional Labs: I reviewed patient's labs and MAR EKG Reviewed by me: Yes (Telemetry: La connelly) Hospitalist ROS - Review of Systems Respiratory: reports: SOB with excertion. denies: cough, dry, shortness of breath, hemoptysis, pleuritic pain, sputum, wheezing Cardiovascular: denies: chest pain, palpitations, orthopnea, paroxysmal noc. dyspnea, edema, light headedness - Medication Medications: Active Medications Generic Name Dose Route Start Last Admin Trade Name Freq PRN Reason Stop Dose Admin Albuterol/Ipratropium 3 ml 04/04/20 19:00 04/09/20 14:03 Ipratropium/Albuterol Sulfate 3 Ml Neb NEB 3 ml [id number] CHIDI Administration Apixaban 5 mg 04/04/20 21:00 04/09/20 09:41 Apixaban 5 Mg Tab PO 5 mg BID CHIDI Administration Arformoterol Tartrate 15 mcg 04/04/20 18:30 04/09/20 07:58 Arformoterol 15 Mcg/2 Ml Neb NEB 15 mcg BID-RT CHIDI Administration Aspirin 81 mg 04/05/20 09:00 04/09/20 09:40 Aspirin 81 Mg Enteric Coated Tablet PO 81 mg DAILY CHIDI Administration Budesonide 0.5 mg 04/04/20 18:30 04/09/20 07:58 Budesonide 0.5 Mg/2 Ml Neb NEB 0.5 mg BID-RT CHIDI Administration Cefdinir 300 mg 04/04/20 21:00 04/09/20 09:40 Cefdinir 300 Mg Cap PO 300 mg BID CHIDI Administration Diltiazem HCl 120 mg 04/07/20 09:00 04/09/20 09:41 Diltiazem Cd 120 Mg Cap PO 120 mg DAILY CHIDI Administration Fenofibrate 48 mg 04/05/20 09:00 04/09/20 09:41 Fenofibrate 48 Mg Tab PO 48 mg DAILY CHIDI Administration Guaifenesin 600 mg 04/08/20 21:00 04/09/20 09:41 Guaifenesin Er 600 Mg Tab PO 600 mg Q12HR CHIDI Administration Isosorbide Mononitrate 60 mg 04/05/20 09:00 04/09/20 09:41 Isosorbide Mononitrate Er 30 Mg Tab PO 60 mg DAILY CHIDI Administration Pantoprazole Sodium 40 mg 04/05/20 09:00 04/09/20 09:41 Pantoprazole 40 Mg Tab PO 40 mg DAILY CHIDI Administration Prednisone 40 mg 04/09/20 08:00 04/09/20 09:40 Prednisone 20 Mg Tab PO 40 mg QAM-WM CHIDI Administration Sodium Chloride 10 ml 04/03/20 09:00 04/09/20 09:42 Flush - Normal Saline 10 Ml Syringe IVF 10 ml Q12HR CHIDI Administration Sodium Chloride 10 ml 04/03/20 06:45 04/08/20 06:03 Flush - Normal Saline 10 Ml Syringe IVF 10 ml PRN PRN Administration Saline Flush - Exam General Appearance: awake alert Eye: anicteric sclera ENT: moist mucosa Neck: supple Heart: no rubs, irregular Respiratory: CTAB Gastrointestinal: soft, non-tender Skin: no rashes Psychiatric: normal behavior Hosp A/P (1) Acute and chronic respiratory failure with hypoxia Code(s): J96.21 - ACUTE AND CHRONIC RESPIRATORY FAILURE WITH HYPOXIA Status: Acute (2) Atrial fibrillation with RVR Code(s): I48.91 - UNSPECIFIED ATRIAL FIBRILLATION Status: Acute (3) COPD exacerbation Code(s): J44.1 - CHRONIC OBSTRUCTIVE PULMONARY DISEASE W (ACUTE) EXACERBATION Status: Acute (4) CAD (coronary artery disease) Code(s): I25.10 - ATHSCL HEART DISEASE OF [place] CORONARY ARTERY W/O ANG PCTRS Status: Chronic Qualifiers: Coronary Disease-Associated Artery/Lesion type: bypass graft [place] vs. transplanted heart: [place] heart Associated angina: without angina Qualified Code(s): I25.810 - Atherosclerosis of coronary artery bypass graft(s) without angina pectoris (5) Dyslipidemia Code(s): E78.5 - HYPERLIPIDEMIA, UNSPECIFIED Status: Chronic (6) HTN (hypertension) Code(s): I10 - ESSENTIAL (PRIMARY) HYPERTENSION Status: Chronic Qualifiers: - Plan Acute on chronic respiratory failure with hypoxia: Patient slowly improving. COPD exacerbation: Continue oxygen, steroids and bronchodilators. Atrial fibrillation: Rate controlled. CKD stage III: Stable Hypertension: Stable NSTEMI type II: Secondary to demand ischemia from hypoxic respiratory failure. Stable. Patient was evaluated by hospice service and was deemed not to be a candidate for hospice. Will arrange for home health prior to discharge. Likely home in 24 to 48 hours.
[2020-04-10] MEDS: Arformoterol 15 MCG/2 ML NEB NEB SCH (08:39)
[2020-04-10] MEDS: Budesonide 0.5 MG/2 ML NEB NEB SCH (08:41)
--- NOTE | 2020-04-10 09:03 | PRG ---
DATE OF SERVICE: 04/09/2020 SUBJECTIVE: Mr. Israel is doing better. His breathing appears to be improving. OBJECTIVE: VITAL SIGNS: Blood pressure 130/70, pulse 80s, respirations 20. LUNGS: Rhonchi and rales bilaterally. HEART: Irregularly irregular. ABDOMEN: Soft, nontender, nondistended. EXTREMITIES: No edema. IMPRESSION: 1. Chronic obstructive pulmonary disease exacerbation. 2. Ischemic cardiomyopathy. 3. Atrial fibrillation. RECOMMENDATIONS: Mr. Israel from a CV standpoint, appears to be stable. Heart rate appears to be well controlled on low-dose Cardizem. The patient had lots of questions about his DNR status. He is [id number] DNR. After much discussion, he would like to continue with DNR status. He would like to discuss further with Dr. Richard Olmos. After discussion with Dr. Richard Olmos, he has opted to continue his DNR status. Otherwise, I have no further recommendations. Plan is to follow up with Mr. Israel as an outpatient. Job ID: [id number]
--- NOTE | 2020-04-10 09:51 | PRG ---
DATE OF SERVICE: 04/10/2020 SUBJECTIVE: Mr. Israel says he is feeling well. He is in a bedside chair doing his leg exercises. OBJECTIVE: VITAL SIGNS: He is afebrile, heart rate 60, respiratory rate is 20, oximetry is 100% on 2 L, and blood pressure 135/73. LUNGS: Distant with prolonged expiratory phase. HEART: Regular rhythm. ABDOMEN: Soft. I suspect he is back to his baseline. His atrial fibrillation rate appears to be controlled. I have given him a prescription for prednisone 40 for 4 days, 30 for 4 days, 20 for 10 days 10 mg a day and stay on 10 mg a day. He can see me in 3 to 4 weeks, if he desires, we look forward to see him again. Job ID: [id number]
[2020-04-10] MEDS: predniSONE 20 MG TAB PO SCH (09:58)
[2020-04-10] MEDS: Apixaban 5 MG TAB PO SCH (09:59)
[2020-04-10] MEDS: guaiFENesin ER 600 MG TAB PO SCH (09:59)
[2020-04-10] MEDS: Cefdinir 300 MG CAP PO SCH (09:59)
[2020-04-10] MEDS: Fenofibrate 48 MG TAB PO SCH (09:59)
[2020-04-10] MEDS: Aspirin 81 mg Enteric Coated Tablet PO SCH (09:59)
--- NOTE | 2020-04-10 11:53 | PDOC.DS.DS ---
Provider - Provider Date of Admission: 04/03/20 06:36 Date of Discharge: 04/10/20 Admitting Provider: Phuong Miller MD Consultations: Cardiology, Pulmonary Primary Care Physician: Steve Washington DO Course - Hospital Course Hospital Course: Discharge diagnosis: 1. Acute on chronic hypoxic respiratory failure 2. COPD exacerbation 3. Atrial fibrillation with rapid ventricular response 4. Non-ST elevation myocardial infarction type II secondary to demand ischemia from hypoxic respiratory failure 5. COVID-19 PCR test negative Hospital course: Mr. Israel is a pleasant 5-year-old gentleman who was admitted to [facility] on April 03, 2020 for acute on chronic hypoxic respiratory failure secondary to COPD exacerbation as well as atrial fibrillation with rapid ventricular response. He was admitted to [facility] and treated with BiPAP, IV steroids, bronchodilators and antibiotics. He was seen by cardiology and pulmonary and critical care medicine services. He was started on calcium channel adriana with improvement in his heart rate. He was transitioned to oral steroids and antibiotics. He continued to improve clinically. He was evaluated by hospice service and was deemed not to be a candidate for hospice care. He is being discharged home with home health. Total amount of time spent coordinating this discharge: 32 minutes. Resuscitation Status: 04/08/20 18:20 Resuscitation Status Routine Resuscitation Status: DNAR: NO Resuscitation Discussed with: Discussed with pt. Nurse at pts side. - Labs Lab Results: 04/06/20 04:10 04/06/20 04:10 Microbiology - Entire Visit 04/03/20 05:35 Venous blood - Left Hand Blood Culture - Final NO GROWTH IN 5 DAYS 04/03/20 05:31 Venous blood - Right Hand Blood Culture - Final NO GROWTH IN 5 DAYS - Physical Exam Vitals: Vital Signs (12 hours) Temp Pulse Resp BP BP Pulse Ox 04/10/20 11:24 98.0 F 87 20 132/73 96 04/10/20 09:59 74 04/10/20 08:39 74 18 97 04/10/20 07:40 97.7 F 67 20 135/73 100 04/10/20 04:00 97.9 F 78 16 133/65 99 04/10/20 01:58 98 04/10/20 01:34 72 16 98 Weight Weight 168 lb 9.6 oz Most Recent Monitor Data Heart Rate from ECG 76 NIBP 136/67 NIBP BP-Mean 90 Respiration from ECG 16 SpO2 99 Physical Exam: The patient was seen and examined on the day of discharge. He denies any chest pain or shortness of breath. Vital signs are stable. S1 and S2 are heard, regular. Lungs are clear to auscultation bilaterally. Problem - Problem (1) Acute and chronic respiratory failure with hypoxia Code(s): J96.21 - ACUTE AND CHRONIC RESPIRATORY FAILURE WITH HYPOXIA Status: Acute (2) Atrial fibrillation with RVR Code(s): I48.91 - UNSPECIFIED ATRIAL FIBRILLATION Status: Acute (3) COPD exacerbation Code(s): J44.1 - CHRONIC OBSTRUCTIVE PULMONARY DISEASE W (ACUTE) EXACERBATION Status: Acute (4) CAD (coronary artery disease) Code(s): I25.10 - ATHSCL HEART DISEASE OF [place] CORONARY ARTERY W/O ANG PCTRS Status: Chronic Qualifiers: Coronary Disease-Associated Artery/Lesion type: bypass graft [place] vs. transplanted heart: [place] heart Associated angina: without angina Qualified Code(s): I25.810 - Atherosclerosis of coronary artery bypass graft(s) without angina pectoris (5) Dyslipidemia Code(s): E78.5 - HYPERLIPIDEMIA, UNSPECIFIED Status: Chronic (6) HTN (hypertension) Code(s): I10 - ESSENTIAL (PRIMARY) HYPERTENSION Status: Chronic Qualifiers: Plan - Discharge Medications Prescriptions: Diltiazem CD [Cardizem CD] 120 mg PO DAILY #30 cap Cefdinir [Omnicef] 300 mg PO BID #12 cap Home Medications: Medication Instructions Recorded Confirmed Type Isosorbide Mononitrate [Isosorbide 60 mg PO DAILY 03/17/15 04/03/20 History Mononitrate ER] Apixaban [Eliquis] 5 mg PO BID #60 tab 06/14/16 04/03/20 Rx Fenofibrate Nanocrystallized 48 mg PO DAILY 07/22/16 04/03/20 History [Tricor] Aspirin [Adult Low Dose Aspirin EC] 81 mg PO DAILY 01/18/17 04/03/20 History Lisinopril [Zestril] 2.5 mg PO DAILY 01/18/17 04/10/20 History Albuterol Sulfate [Ventolin Hfa] 2 puff IH Q4HR PRN 02/07/18 04/03/20 History Furosemide [Lasix] 20 mg PO QPM 02/07/18 04/03/20 History Furosemide [Lasix] 40 mg PO QAM 12/02/19 04/03/20 History Budesonide 0.5 mg NEB BID 04/03/20 04/03/20 History Ipratropium/Albuterol Sulfate 3 ml NEB QID 04/03/20 04/03/20 History [DuoNeb] Potassium Gluconate [Potassium] 500 mg PO BID 04/03/20 04/03/20 History Cefdinir [Omnicef] 300 mg PO BID #12 cap 04/10/20 Rx Diltiazem CD [Cardizem CD] 120 mg PO DAILY #30 cap 04/10/20 Rx predniSONE 40 mg PO QAM-WM tab 04/10/20 Rx Allergies: No Known Allergies Allergy (Verified 12/01/19 13:51) - Discharge Instructions Activity:: Activity as Tolerated Nourishment:: Heart Healthy Diet, Low Sodium Diet - Follow up Plan Referrals: [facility]) [Outside] (Home health eval.) Steve Washington, [Primary Care Provider] - 3 Days (CALL AND SCHEDULE FOLLOW UP APPT TO SEE DR WASHINGTON NEXT WEEK. ) Darwin Guajardo MD [Active] - 3-4 Weeks (CALL AND SCHEDULE FOLLOW UP APPT TO SEE DR GUAJARDO INSTRUCTED) Richard Olivarez MD [Active] - 3-4 Weeks (CALL AND SCHEDULE APPT TO SEE DR OLIVAREZ INSTRUCTED) Disposition: HOME HEALTH Quality - Care Measures CORE MEASURES:: N/A
--- NOTE | 2020-04-10 12:42 | PDOC.PALPN ---
Palliative Progress Note - Subjective Denies any complaints, continues to be midly short of breath with activity. "Ready to go home". - Objective Vital Signs: Vital Signs - Most Recent Temp Pulse Resp BP Pulse Ox 98.0 F 87 20 132/73 96 04/10/20 11:24 04/10/20 11:24 04/10/20 11:24 04/10/20 11:24 04/10/20 11:24 - Physical Exam Constitutional: ill appearing HEENT: moist MMs Respiratory: no wheezing, unlabored breathing Cardiovascular: irregular Gastrointestinal: soft, non-tender, positive bowel sounds Genitourinary: continent Musculoskeletal: no cyanosis, no clubbing, no edema Neurology: moves all 4 limbs, no focal deficits Skin: cap refill <2 seconds Psychiatric: A&O x 3, normal affect - Assessment (1) Palliative care encounter Code(s): Z51.5 - ENCOUNTER FOR PALLIATIVE CARE Current Visit: Yes Status: Acute (2) Acute and chronic respiratory failure with hypoxia Code(s): J96.21 - ACUTE AND CHRONIC RESPIRATORY FAILURE WITH HYPOXIA Current Visit: No Status: Acute (3) COPD exacerbation Code(s): J44.1 - CHRONIC OBSTRUCTIVE PULMONARY DISEASE W (ACUTE) EXACERBATION Current Visit: No Status: Acute (4) A-fib Code(s): I48.91 - UNSPECIFIED ATRIAL FIBRILLATION Current Visit: No Status: Chronic Qualifiers: Atrial fibrillation type: paroxysmal Qualified Code(s): I48.0 - Paroxysmal atrial fibrillation (5) Anticoagulant long-term use Code(s): Z79.01 - ROD PLACER (CURRENT) USE OF ANTICOAGULANTS Current Visit: No Status: Chronic (6) Chronic systolic heart failure, ACC/AHA stage C Code(s): I50.22 - CHRONIC SYSTOLIC (CONGESTIVE) HEART FAILURE Current Visit: No Status: Chronic - Plan Plan: Mr Israel has discussed DNAR with both Dr Lewis and Dr Olmos. He is desiring to remain with his OOHDNAR in place. He plans on discharge home with [facility] home health, will consider transition to hospice if disease trajectory warrants. Goal is to return to home setting Emotional support/therapeutic listening. [35] minutes spent on this encounter with >50% of the time in counseling and coordination of care. - ROS Constitutional: alert, weakness ENT: other (Denies throat irritation, congetsion) Respiratory: shortness of breath with extertion Cardiology: other (denies chest pain, palpitations) Neurological: other (Denies dizziness, headache)
[2020-04-10 15:20] VITALS: BP 123/70; TEMP 97.9
== END 2020-04-10 15:40 | disposition home health service (06) | DRG 280 ==
LOC: ERS 04:18 → IMCU/EMU 06:36 → 2NO 04-05 14:10
PROVIDERS: ADMIT Internal Medicine; ATTEND Internal Medicine
PROC: 5A09357 Assistance with Respiratory Ventilation, Less than 24 Consecutive Hours, Continuous Positive Airway Pressure (ICD-10-PCS; principal; 2020-04-03)
DX: I48.0 Paroxysmal atrial fibrillation (principal); J96.21 Acute and chronic respiratory failure with hypoxia; I21.A1 Myocardial infarction type 2; J44.1 Chronic obstructive pulmonary disease with (acute) exacerbation; I25.810 Atherosclerosis of coronary artery bypass graft(s) without angina pectoris; I50.22 Chronic systolic (congestive) heart failure; I13.0 Hypertensive heart and chronic kidney disease with heart failure and stage 1 through stage 4 chronic kidney disease, or unspecified chronic kidney disease; Z51.5 Encounter for palliative care; Z66 Do not resuscitate; Z20.828 Contact with and (suspected) exposure to other viral communicable diseases; E78.5 Hyperlipidemia, unspecified; M19.90 Unspecified osteoarthritis, unspecified site; N40.0 Benign prostatic hyperplasia without lower urinary tract symptoms; F17.210 Nicotine dependence, cigarettes, uncomplicated; N18.30 Chronic kidney disease, stage 3 unspecified; I25.5 Ischemic cardiomyopathy; Z79.01 Long term (current) use of anticoagulants; Z79.51 Long term (current) use of inhaled steroids; Z79.82 Long term (current) use of aspirin; Z86.12 Personal history of poliomyelitis; Z95.1 Presence of aortocoronary bypass graft
CPT/HCPCS: 36415; 71045; 80048; 80053; 82550; 82553; 82805; 83605; 83880; 84484; 85025; 87040; 87635; 93005; 94660; 94760; 96365; 96367; 96374; J0456; J0696; J1940; J2920; J2930; J3475; J3490; J7050; J7512; J7620; J7626; S0028; U0003

== ENCOUNTER 2020-04-15 12:24 | Inpatient (IN) | payer MEDICARE ==
[2020-04-15] MEDS ORDERED: Albuterol 200 PUFF (6.7GM INHALER) ONE (13:00)
[2020-04-15 13:11] LABS: #Basophils 0.1 thou/uL (0.0-0.2); #Lymphocytes 0.2 thou/uL (1.20-3.40); #Monocytes 0.3 thou/uL (0.11-0.59); #Neutrophils 16.6 thou/uL (1.40-6.50); %Basophils 0.4 % (0.0-1.0); %Lymphocytes 0.9 % (21.0-51.0); %Monocytes 1.9 % (0.0-10.0); %Neutrophils 96.7 % (42.0-75.0); Hemoglobin 11.5 g/dL (14.0-18.0); Mean Corpuscular HGB CONC 32.2 g/dL (32.0-36.0); Mean Corpuscular Hemoglobin 29.9 pg (27.0-31.0); Mean Platelet Volume 7.9 fL (7.4-10.4); Platelet Count 102 thou/uL (130-400); RBC Distribution Width 12.9 % (11.5-14.5); Red Blood Cell (RBC) Count 3.84 mill/uL (4.70-6.10); White Blood Cell (WBC) Count 17.1 thou/uL (4.8-10.8)
--- NOTE | 2020-04-15 13:21 | RAD ---
PORTABLE CHEST 1 VIEW: Date: 04/15/2020 Time: 1308 hours HISTORY: Shortness of breath. COPD. CHF. COMPARISON: 04/03/2020. FINDINGS/IMPRESSION: Changes of median sternotomy again seen. The heart is enlarged. The aorta is tortuous. There is pulmo nary vascular congestion. No lobar consolidation, pneumothoraces, or large effusions are seen. POS: AH
[2020-04-15 13:28] LABS: MDiff Complete? YES; Ovalocytes SLIGHT = 2-5 cells (100X) (0-1/hpf); Platelet Morphology Comment Appears Decreased
[2020-04-15 13:31] LABS: ALT (SGPT) 66 U/L (8-55); AST (SGOT) 39 U/L (5-34); Albumin 2.9 g/dL (3.4-4.8); Alkaline Phosphatase 53 U/L (40-110); Anion Gap 15 mmol/L (10-20); BUN (Urea Nitrogen) 30 mg/dL (8.4-25.7); Bilirubin, Total 0.8 mg/dL (0.2-1.2); Calc. Creatinine Clearance 0 mL/min (70-130); Carbon Dioxide 25 mmol/L (23-31); Chloride 99 mmol/L (98-107); Estimated GFR-MDRD 57; Globulin 1.9 g/dL (2.4-3.5); Glucose 260 mg/dL (83-110); Potassium 4.8 mmol/L (3.5-5.1); Protein, Total 4.8 g/dL (5.8-8.1); Sodium 134 mmol/L (136-145)
[2020-04-15] MEDS ORDERED: Azithromycin 500 MG VIAL ONE (13:37)
[2020-04-15] MEDS ORDERED: Acetaminophen 500 MG TAB ONE (13:37)
[2020-04-15] MEDS ORDERED: Magnesium 2 GM/50 ML BAG (IN WATER) ONE (13:37)
[2020-04-15] MEDS ORDERED: cefTRIAXone\\ROCEPHIN 2 GM VIAL ONE (13:37)
[2020-04-15 13:53] LABS: CKMB 3.4 ng/mL (0-6.6)
[2020-04-15 14:54] LABS: SARS-CoV-2 NAA Rapid Test DETECTED (NotDetected)
[2020-04-15] MEDS ORDERED: Aspirin Chewable 81 MG TAB ONE (15:06)
[2020-04-15] MEDS ORDERED: Ondansetron ODT 4 MG TAB PO PRN (16:52)
[2020-04-15] MEDS ORDERED: Acetaminophen 325 MG TAB PO PRN (16:52)
[2020-04-15] MEDS ORDERED: Bisacodyl 5 MG TAB PO PRN (16:52)
[2020-04-15] MEDS ORDERED: Albuterol 200 PUFF (6.7GM INHALER) INH PRN (17:10)
--- NOTE | 2020-04-15 17:12 | PDOC.HHP ---
Hospitalist HPI - History of Present Illness "I am SOB" History of Present Illness: Mr. Harrison Israel is an 85-year-old patient whose medical history includes COPD and chronic respiratory failure(he is on home O2 2 and half liters continuously), he has CAD with prior bypass surgery x2, he has atrial fibril lation who presented to the hospital with above complaint. He reported onset of symptoms in the last 48 hours. He had spoken to his pulmonary doctor who prescribed some prednisone but he was not getting any better. He even increased his O2 use at home and still felt more short of breath prompting him to present today to the hospital for an evaluation. He was just admitted to the hospital for about a week and has been home the last 5 days. He was apparently doing well up until the last 48 hours when he started having more shortness of breath. Symptoms was associated with cough with muco purulent sputum. He had no chest pain. He presented to the hospital and was going to be admitted for COPD exacerbation but he was swabbed for the Covid virus and his test was positive. He reports that he has been quarantined at home for the most part. He denied any fever, he had no nausea, no vomiting or diarrhea. He does live at home with his . On exam he is markedly short of breath with conversational dyspnea despite being on high flow nasal cannula. He has pursed lips breathing. He is using some accessory muscles of respiration. I asked him about his CODE STATUS and he wants to be a DO NOT RESUSCITATE in the event of any adverse cardiopulmonary arrest. He is going to be admitted for acute on chronic respiratory failure due to COPD exacerbation and COVID-19 pneumonia. 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 Olmos. Hospitalist ROS - Review of Systems Constitutional: reports: fever, weakness, malaise ENT: reports: nose congestion Respiratory: reports: cough, dry, shortness of breath, SOB with excertion, sputum, wheezing Cardiovascular: reports: chest pain, palpitations, orthopnea, paroxysmal noc. d yspnea Gastrointestinal: reports: nausea, vomiting Genitourinary: reports: other Neurological: reports: weakness, numbness All other systems reviewed; all pertinent +/- noted in HPI/Subj Hospitalist History - Past Medical History Source: patient Cardiac: reports: AFIB, CAD, HTN, [place] Pulmonary: reports: COPD, high cholesterol, hypertension, lung disease PUNCHBOARD STUFFER: reports: no pertinent history Gastrointestinal: reports: no pertinent history Heme/Onc: reports: no pertinent history Hepatobiliary: reports: no pertinent history Psych: reports: no pertinent history Musculoskeletal: reports: no pertinent history, Chronic low back pain Rheumatologic: reports: no pertinent history Renal/: reports: no pertinent history Endocrine: reports: no pertinent history Dermatology: reports: no pertinent history - Past Surgical History Past Surgical History: reports: CABG - Family History Family History: reports: no pertinent history Other Family History: I discussed family history with him and he said there is no history of cancer or COPD. - Social History Smoking Status: Former smoker Alcohol: reports: None Drugs: reports: none Living Situation: With Family Domestic Violence: Negative Occupation: He is retired. 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 Activity level: independent ambulation - Exam General Appearance: awake alert, ill appearing Eye: PERRL, anicteric sclera ENT: normocephalic atraumatic, moist mucosa Neck: supple, no JVD, no lymphadenopathy Heart: RRR, no murmur, no gallops, no rubs, normal peripheral pulses Respiratory: normal chest expansion, rhonchi, tachypneic, wheezes Gastrointestinal: soft, non-tender, non-distended, normal bowel sounds, no palpable masses, no bruit Extremities: no cyanosis, no clubbing, no edema Skin: normal turgor Neurological: cranial nerve grossly intact, normal sensation to touch, no weakness, no focal deficits, no new deficit Musculoskeletal: normal tone, normal strength, no muscle wasting Psychiatric: normal affect, normal behavior, A&O x 3, oriented to person, oriented to place, oriented to time Hospitalist Results - Labs Result Diagrams: 04/15/20 12:59 04/15/20 12:59 Lab results: WBC 17.1 thou/uL (4.8-10.8) H 04/15/20 12:59 Hgb 11.5 g/dL (14.0-18.0) L 04/15/20 12:59 Hct 35.7 % (42.0-52.0) L 04/15/20 12:59 MCV 93.0 fL (78.0-98.0) 04/15/20 12:59 Plt Count 102 thou/uL (130-400) L 04/15/20 12:59 Neutrophils % 96.7 % (42.0-75.0) H 04/15/20 12:59 Sodium 134 mmol/L (136-145) L 04/15/20 12:59 Potassium 4.8 mmol/L (3.5-5.1) 04/15/20 12:59 Chloride 99 mmol/L (98-107) 04/15/20 12:59 Carbon Dioxide 25 mmol/L (23-31) 04/15/20 12:59 BUN 30 mg/dL (8.4-25.7) H 04/15/20 12:59 Creatinine 1.20 mg/dL (0.7-1.3) 04/15/20 12:59 Glucose 260 mg/dL (83-110) H 04/15/20 12:59 Calcium 8.0 mg/dL (7.8-10.44) 04/15/20 12:59 Total Bilirubin 0.8 mg/dL (0.2-1.2) 04/15/20 12:59 AST 39 U/L (5-34) H 04/15/20 12:59 ALT 66 U/L (8-55) H 04/15/20 12:59 Alkaline Phosphatase 53 U/L (40-110) 04/15/20 12:59 CK-MB (CK-2) 3.4 ng/mL (0-6.6) 04/15/20 12:59 Troponin I 0.296 ng/mL (< 0.028) H 04/15/20 12:59 B-Natriuretic Peptide 173.3 pg/mL (0-100) H 04/15/20 12:59 Serum Total Protein 4.8 g/dL (5.8-8.1) L 04/15/20 12:59 Albumin 2.9 g/dL (3.4-4.8) L 04/15/20 12:59 Hospitalist H&P A/P - Problem (1) Acute and chronic respiratory failure with hypoxia Code(s): J96.21 - ACUTE AND CHRONIC RESPIRATORY FAILURE WITH HYPOXIA Status: Acute Assessment and Plan: Likely secondary to COPD exacerbation and COVID-19 pneumonia. He currently is on high flow nasal cannula. We will continue this for now and I will consult his lottery office manager to help with further management. (2) COPD exacerbation Code(s): J44.1 - CHRONIC OBSTRUCTIVE PULMONARY DISEASE W (ACUTE) EXACERBATION Status: Acute Assessment and Plan: I will start him on aggressive steroid, bronchodilators. Empiric IV antibiotics with Levaquin. (3) Pneumonia due to 2019-nCoV Code(s): U07.1 - COVID-19; J12.89 - OTHER VIRAL PNEUMONIA Status: Acute Assessment and Plan: Patient is Covid PCR was positive. We will place him on airborne precautions. (4) Type [address] elevation Code(s): I21.A1 - MYOCARDIAL INFARCTION TYPE 2 Status: Acute Assessment and Plan: This is type II non-ST elevation [place] secondary to respiratory failure. He denied any chest pain. He has had elevated troponin before. (5) A-fib Code(s): I48.91 - UNSPECIFIED ATRIAL FIBRILLATION Status: Chronic Qualifiers: Atrial fibrillation type: paroxysmal Qualified Code(s): I48.0 - Paroxysmal atrial fibrillation Assessment and Plan: We will continue his home Eliquis. He appears to be rate controlled when I visited him.
[2020-04-15] MEDS ORDERED: methylPREDNISolone Sod Succ/PF 125 MG/2 ML VIAL ONE (18:58)
[2020-04-15] MEDS ORDERED: Famotidine 20 MG TAB ONE (19:05)
[2020-04-15] MEDS ORDERED: methylPREDNISolone Sod Succ 40 MG VIAL ONE (19:08)
[2020-04-15] MEDS: Famotidine 20 MG TAB PO SCH (19:20)
[2020-04-15] MEDS: methylPREDNISolone Sod Succ 40 MG VIAL IVP SCH (19:20)
[2020-04-15] MEDS: Albuterol 200 PUFF (6.7GM INHALER) INH SCH (22:53)
[2020-04-15 23:40] LABS: Troponin I 0.189 ng/mL (< 0.028)
[2020-04-16] MEDS: Albuterol 200 PUFF (6.7GM INHALER) INH SCH ×4 (01:30→19:18)
[2020-04-16] MEDS: methylPREDNISolone Sod Succ 40 MG VIAL IVP SCH ×5 (02:19→23:00)
[2020-04-16 03:42] LABS: #Lymphocytes 0.3 thou/uL (1.20-3.40); #Monocytes 0.2 thou/uL (0.11-0.59); #Neutrophils 13.1 thou/uL (1.40-6.50); %Basophils 0.1 % (0.0-1.0); %Eosinophils 0.1 % (0.0-10.0); %Monocytes 1.7 % (0.0-10.0); %Neutrophils 96.1 % (42.0-75.0); Hemoglobin 12.1 g/dL (14.0-18.0); Mean Corpuscular Hemoglobin 29.8 pg (27.0-31.0); Mean Platelet Volume 8.5 fL (7.4-10.4); Platelet Count 110 thou/uL (130-400); Red Blood Cell (RBC) Count 4.05 mill/uL (4.70-6.10); White Blood Cell (WBC) Count 13.6 thou/uL (4.8-10.8)
[2020-04-16] MEDS ORDERED: methylPREDNISolone Sod Succ 40 MG VIAL ONE ×4 (03:52→19:22)
[2020-04-16 04:00] LABS: Anion Gap 17 mmol/L (10-20); BUN (Urea Nitrogen) 30 mg/dL (8.4-25.7); Calc. Creatinine Clearance 0 mL/min (70-130); Calcium 8.6 mg/dL (7.8-10.44); Carbon Dioxide 23 mmol/L (23-31); Chloride 100 mmol/L (98-107); Estimated GFR-MDRD 73; Glucose 162 mg/dL (83-110); Potassium 4.7 mmol/L (3.5-5.1); Sodium 135 mmol/L (136-145)
[2020-04-16] MEDS ORDERED: Famotidine/PF 20 mg/2ml Vial ONE (08:51)
[2020-04-16] MEDS ORDERED: Famotidine 20 MG TAB ONE (08:52)
[2020-04-16 08:54] LABS: Actual Bicarbonate (HCO3a) 21.6 mEq/L (22-28); Analyzer IN Cardio ER; Base Excess (BEa) -2.5 mEq/L (-2.0 to +3.0); CO2 Tension 35.3 mmHg (35.0-45.0); Calcium, Ionized (arterial) 1.15 mmol/L (1.12-1.30); Carboxyhemoglobin (COHb) 0.5 gm% (0.0-3.0); Hemoglobin (Hb) 13.8 g/dL (14.0-18.0); O2 Tension (PaO2), arterial 70.4 mmHg (> 60.0); Potassium - ABG Lab 4.46 mmol/L (3.70-5.30); pH, Arterial 7.41 (7.35-7.45)
[2020-04-16] MEDS: Famotidine 20 MG TAB PO SCH ×2 (09:00→23:00)
[2020-04-16 09:01] LABS: Puncture Site RRA
[2020-04-16 09:02] LABS: ALV-art Gradient 299.015 mmHg (0-20)
[2020-04-16] MEDS: Apixaban 5 MG TAB PO SCH ×2 (09:24→23:00)
[2020-04-16] MEDS: Ascorbic Acid 500 mg Chewable Tablet PO SCH (13:00)
[2020-04-16] MEDS: Zinc Sulfate 220 MG CAP PO SCH (13:00)
--- NOTE | 2020-04-16 13:50 | PDOC.HOSPP ---
- Subjective Encounter Date: 04/16/20 Encounter Time: 13:49 Subjective: This is an 85-year-old patient who has medical history includes COPD and chronic respiratory failure who was admitted to the hospital with worsening shortness of breath and found to have COVID-19 pneumonia. He remains on a high flow this morning. His blood gas was revealed and it showed the following: pH of 7.4, PCO2 of 35 and PO2 of 70. We consulted his valve tester for an evaluation. I will continue him on aggressive bronchodilators, IV steroid and empiric IV antibiotics. Cultures were collected and they are still pending. - Objective Vital Signs & Weight: Vital Signs (12 hours) Pulse Ox 04/16/20 01:51 94 L Result Diagrams: 04/16/20 03:31 04/16/20 03:31 Radiology Reviewed by me: Yes EKG Reviewed by me: Yes Hospitalist ROS - Review of Systems Constitutional: reports: fever, weakness Respiratory: reports: cough, dry, shortness of breath, SOB with excertion, pleuritic pain Cardiovascular: reports: palpitations - Medication Medications: Active Medications Generic Name Dose Route Start Last Admin Trade Name Freq PRN Reason Stop Dose Admin Albuterol Sulfate 2 puff 04/15/20 17:10 04/15/20 22:53 Albuterol 200 Puff (6.7gm Inhaler) INH 2 puff Q2H PRN Administration SOB &/or Wheezing Albuterol Sulfate 2 puff 04/15/20 19:00 04/16/20 13:32 Albuterol 200 Puff (6.7gm Inhaler) INH 2 puff [id number] CHIDI Administration Apixaban 5 mg 04/16/20 09:00 04/16/20 09:24 Apixaban 5 Mg Tab PO 5 mg BID CHIDI Administration Ascorbic Acid 500 mg 04/16/20 09:00 04/16/20 13:00 Ascorbic Acid 500 Mg Chewable Tablet PO 500 mg DAILY CHIDI Administration Famotidine 20 mg 04/15/20 21:00 04/16/20 09:00 Famotidine 20 Mg Tab PO 20 mg BID CHIDI Administration Levofloxacin 750 mg/ Device 150 mls @ 100 mls/hr 04/15/20 18:00 04/15/20 19:18 IVPB 150 mls 1800 CHIDI Administration Methylprednisolone Sodium Succinate 60 mg 04/15/20 18:00 04/16/20 13:00 Methylprednisolone Sod Succ 40 Mg Vial IVP 60 mg Q6HR CHIDI Administration Sodium Chloride 10 ml 04/16/20 09:00 04/16/20 09:00 Flush - Normal Saline 10 Ml Syringe IVF 10 ml Q12HR CHIDI Administration Zinc Sulfate 220 mg 04/16/20 09:00 04/16/20 13:00 Zinc Sulfate 220 Mg Cap PO 220 mg DAILY CHIDI Administration - Exam General Appearance: awake alert, ill appearing Eye: PERRL, anicteric sclera ENT: normocephalic atraumatic, no oropharyngeal lesions Neck: supple, symmetric, no lymphadenopathy Heart: RRR, no murmur, no gallops, normal peripheral pulses Respiratory: CTAB, no wheezes, no rales, no ronchi, normal chest expansion Gastrointestinal: soft, non-tender, non-distended, normal bowel sounds, no palpable masses Skin: normal turgor Neurological: cranial nerve grossly intact, normal sensation to touch, no weakness, no focal deficits Musculoskeletal: normal tone, no muscle wasting Psychiatric: normal affect, normal behavior, A&O x 3, oriented to person, oriented to place Hosp A/P (1) Acute and chronic respiratory failure with hypoxia Code(s): J96.21 - ACUTE AND CHRONIC RESPIRATORY FAILURE WITH HYPOXIA Status: Acute Plan: Secondary to COPD exacerbation and Covid pneumonia. (2) COPD exacerbation Code(s): J44.1 - CHRONIC OBSTRUCTIVE PULMONARY DISEASE W (ACUTE) EXACERBATION Status: Acute Plan: We will continue steroid and bronchodilators. (3) Pneumonia due to 2019-nCoV Code(s): U07.1 - COVID-19; J12.89 - OTHER VIRAL PNEUMONIA Status: Acute Plan: Empiric antibiotics. Follow-up on active cultures. (4) Type [address] elevation Code(s): I21.A1 - MYOCARDIAL INFARCTION TYPE 2 Status: Acute (5) A-fib Code(s): I48.91 - UNSPECIFIED ATRIAL FIBRILLATION Status: Chronic Qualifiers: Atrial fibrillation type: paroxysmal Qualified Code(s): I48.0 - Paroxysmal atrial fibrillation - Plan #1. Acute on chronic respiratory failure with hypoxia. Likely secondary to COPD exacerbation and COVID-19 pneumonia. Continue high flow nasal cannula and wean as tolerated. 2. COVID-19 pneumonia. His Covid PCR was actually positive. Continue IV antibiotics. Follow-up on all the active cultures. We will continue vitamin C and zinc sulfate. 3. COPD exacerbation. Continue steroid, bronchodilators and O2 supplementation as above. 4. Coronary artery disease Continue home medications. He denied any chest pain. 5. Non-HI elevation of troponin. Patient again denied any chest pain and I do not believe that he has coronary disease at this time. 6. Leukocytosis. Likely this is from steroid that he was on previously.
[2020-04-17] MEDS: Albuterol 200 PUFF (6.7GM INHALER) INH SCH ×4 (00:09→22:00)
--- NOTE | 2020-04-17 01:29 | PDOC.EVN ---
Event Note - Event Note Event Note: called by RN patient is more sob, I evaluated him at the bedside and he is using his accessory muscles, but he is able to communicate. He is fully oriented. He is adamant that he does not want to be intubated, even if he " stops breathing " I called his and got her voicemail, I left her a message with my phone number. will give one dose of Lasix, and order a cxr stat.
[2020-04-17] MEDS ORDERED: Furosemide 40 MG/4 ML VIAL SLOW IVP SCH (01:30)
[2020-04-17 03:18] VITALS: BMI 25.4
[2020-04-17 05:14] LABS: Band 10 % (5-11); Burr Cells SLIGHT = 2-5 cells (100X) (0-1/hpf); Hemoglobin 13.8 g/dL (14.0-18.0); MDiff Complete? YES; Mean Corpuscular HGB CONC 30.9 g/dL (32.0-36.0); Mean Corpuscular Hemoglobin 29.5 pg (27.0-31.0); Mean Corpuscular Volume 95.7 fL (78.0-98.0); Mean Platelet Volume 8.7 fL (7.4-10.4); Neutrophil 90 % (42-75); Platelet Count 101 thou/uL (130-400); RBC Distribution Width 13.1 % (11.5-14.5); Red Blood Cell (RBC) Count 4.68 mill/uL (4.70-6.10); White Blood Cell (WBC) Count 24.7 thou/uL (4.8-10.8)
[2020-04-17] MEDS: methylPREDNISolone Sod Succ 40 MG VIAL IVP SCH ×3 (06:06→22:00)
[2020-04-17] MEDS: Apixaban 5 MG TAB PO SCH ×2 (07:39→22:31)
[2020-04-17] MEDS: Famotidine 20 MG TAB PO SCH (07:39)
[2020-04-17] MEDS: Zinc Sulfate 220 MG CAP PO SCH (07:39)
[2020-04-17] MEDS: Ascorbic Acid 500 mg Chewable Tablet PO SCH (07:39)
[2020-04-17 07:53] LABS: Anion Gap 19 mmol/L (10-20); BUN (Urea Nitrogen) 57 mg/dL (8.4-25.7); Calc. Creatinine Clearance 37 mL/min (70-130); Calcium 8.6 mg/dL (7.8-10.44); Carbon Dioxide 23 mmol/L (23-31); Chloride 101 mmol/L (98-107); Estimated GFR-MDRD 44; Glucose 239 mg/dL (83-110); Potassium 5.6 mmol/L (3.5-5.1); Sodium 137 mmol/L (136-145)
--- NOTE | 2020-04-17 09:48 | RAD ---
CHEST 1 VIEW: Date: 04/17/2020 HISTORY: Shortness of breath. COMPARISON: 04/15/2020. FINDINGS: There is marked worsening of the appearance of the chest with developing interstitial and alveolar op acity changes throughout both lungs, particularly in the mid lung zones. Minimal cardiomegaly. Postop midline sternotomy. Minimal bilateral costophrenic angle blunting. IMPRESSION: Marked worsening in the appearance of the chest with developing alveolar and interstitial opacity portillo nges, somewhat confluent in the right and left mid lung zones, with bilateral costophrenic angle blun ting. This could represent developing asymmetric pulmonary edema or bilateral pneumonia including COV ID pneumonia. POS: RRE
[2020-04-17] MEDS: Sodium Chloride 0.45% 1,000 ML IV SCH (15:10)
--- NOTE | 2020-04-17 15:40 | PDOC.HOSPP ---
- Subjective Encounter Date: 04/17/20 Encounter Time: 15:38 Subjective: This is an unfortunate 85-year-old with a history of COPD and chronic respiratory failure, he has coronary artery disease and atrial fibrillation. He presented to the hospital with initially what was thought to be COPD exace rbation but unfortunately he also was found to have COVID-19 virus. He is admitted and placed on empiric antibiotics and respiratory support. He has alternated between BiPAP and high flow nasal cannula. He is pending evaluation by his editor producer. His prognosis is guarded. - Objective Vital Signs & Weight: Vital Signs (12 hours) Temp Pulse Resp Pulse Ox 04/17/20 08:34 94 18 100 04/17/20 08:00 96.7 F L 98 Weight Weight 162 lb 4.8 oz Most Recent Monitor Data Heart Rate from ECG 87 NIBP 186/106 NIBP BP-Mean 132 Respiration from ECG 20 SpO2 100 Result Diagrams: 04/17/20 03:38 04/17/20 07:18 Additional Labs: Accuchecks 04/17/20 00:29 POC Glucose 199 H Radiology Reviewed by me: Yes EKG Reviewed by me: Yes Hospitalist ROS - Review of Systems ROS unobtainable: due to mental status Constitutional: reports: fever Respiratory: reports: cough, dry, shortness of breath, SOB with excertion, sputum, wheezing Cardiovascular: reports: paroxysmal noc. dyspnea Gastrointestinal: reports: nausea - Medication Medications: Active Medications Generic Name Dose Route Start Last Admin Trade Name Freq PRN Reason Stop Dose Admin Apixaban 5 mg 04/16/20 09:00 04/17/20 07:39 Apixaban 5 Mg Tab PO 5 mg BID CHIDI Administration Sodium Chloride 1,000 mls @ 75 mls/hr 04/17/20 13:00 04/17/20 15:10 1/2 Normal Saline IV 1,000 mls .[id number] CHIDI Administration Sodium Chloride 10 ml 04/16/20 09:00 04/17/20 07:39 Flush - Normal Saline 10 Ml Syringe IVF 10 ml Q12HR CHIDI Administration Zinc Sulfate 220 mg 04/16/20 09:00 04/17/20 07:39 Zinc Sulfate 220 Mg Cap PO 220 mg DAILY CHIDI Administration - Exam General Appearance: ill appearing Eye: PERRL ENT: normocephalic atraumatic, dry oral mucosa Neck: supple, symmetric, no lymphadenopathy Heart: RRR Respiratory: CTAB, normal chest expansion Gastrointestinal: soft, non-tender, non-distended Neurological: cranial nerve grossly intact, normal sensation to touch, no focal deficits Musculoskeletal: generalized weakness Psychiatric: normal affect, normal behavior, A&O x 3, flat affect Hosp A/P (1) Acute and chronic respiratory failure with hypoxia Code(s): J96.21 - ACUTE AND CHRONIC RESPIRATORY FAILURE WITH HYPOXIA Status: Acute (2) COPD exacerbation Code(s): J44.1 - CHRONIC OBSTRUCTIVE PULMONARY DISEASE W (ACUTE) EXACERBATION Status: Acute (3) Pneumonia due to 2019-nCoV Code(s): U07.1 - COVID-19; J12.89 - OTHER VIRAL PNEUMONIA Status: Acute (4) Type [address] elevation Code(s): I21.A1 - MYOCARDIAL INFARCTION TYPE 2 Status: Acute (5) A-fib Code(s): I48.91 - UNSPECIFIED ATRIAL FIBRILLATION Status: Chronic Qualifiers: Atrial fibrillation type: paroxysmal Qualified Code(s): I48.0 - Paroxysmal atrial fibrillation - Plan #1. Acute on chronic respiratory failure with hypoxia. Likely secondary to COPD exacerbation and COVID-19 pneumonia. Continue high flow nasal cannula and wean as tolerated. 04/17/2020. Patient now alternating between BiPAP and high flow nasal cannula. His prognosis is guarded. 2. COVID-19 pneumonia. His Covid PCR was actually positive. Continue IV antibiotics. Follow-up on all the active cultures. We will continue vitamin C and zinc sulfate. 04/17/2020. Continue supportive care. 3. COPD exacerbation. Continue steroid, bronchodilators and O2 supplementation as above. 4. Coronary artery disease Continue home medications. He denied any chest pain. 5. Non-[place] elevation of troponin. Patient again denied any chest pain and I do not believe that he has coronary disease at this time. 6. Leukocytosis. Likely this is from steroid that he was on previously.
[2020-04-17] MEDS ORDERED: REMDESIVIR (EUA) 200 MG in Sodium Chloride 0.9% 250 ML 210 ML IV SCH ×2 (17:30→20:00)
--- NOTE | 2020-04-17 21:32 | CON ---
DATE OF CONSULTATION: 04/17/2020 SUBJECTIVE: Mr. Israel is a pleasant gentleman recently in the hospital with COPD and most importantly rapid atrial fib induced pulmonary edema. He reached a point where he is stable enough to go home, but he is marginally functional. He agreed to go home with hospice. He is apparently back in with shortness of breath, was found to have COVID. He is on BiPAP. Still DNR. OBJECTIVE: VITAL SIGNS: Heart rates in 80s, blood pressure is elevated, respiratory rate is 20, oximetry is 100%. LUNGS: Remarkable for distant breath sounds. HEART: Regular rhythm. ABDOMEN: Soft. IMPRESSION: COVID-19 positive with bilateral infiltrates consistent with a viral pneumonia. Even with his baseline shortness of breath on a good day, he probably survive this. Job ID: [id number] MTDD
--- NOTE | 2020-04-17 23:05 | CON ---
DATE OF CONSULTATION: 04/17/2020 REASON FOR CONSULTATION: Severe COVID pneumonia. HISTORY OF PRESENT ILLNESS: 85-year-old with history of COPD on chronic home O2, coronary artery disease, prior bypass graft surgery, and atrial fibrillation, who developed progressively worsening dyspnea for the past 2 days before admission. He was given some prednisone, apparently was not getting better, and so came for evaluation. He was admitted, tested positive for SARS COVID-2 and he is in the IMCU now. He is on a BiPAP and cannot speak. He just basically nodded or shook his head to questions. He does not have headaches. No chest pain. No abdominal pain. No diarrhea. PAST MEDICAL HISTORY: Includes atrial fibrillation, coronary artery disease, hypertension, COPD on home O2. SURGICAL HISTORY: Bypass graft surgery. SOCIAL HISTORY: Former smoker. Lives with family in [place]. CURRENT MEDICATIONS: 1. Levofloxacin. 2. Eliquis. 3. Methylprednisolone. 4. Zinc. PHYSICAL EXAMINATION: VITAL SIGNS: T-max 96.7, BP 170/90, heart rate 96, respiratory rate 22, O2 sats 99. He is breathing 19 times a minute, has a BiPAP mask on. SKIN: With no areas of skin breakdown. He has a peripheral IV access, and is voiding in the urinal. No lymphadenopathy. HEENT: Ocular movements conjugate. Oral cavity still with few teeth in place with some decay and gum disease and gum resorption. NECK: Supple. No jugular vein distention. LUNGS: Symmetric air entry. Coarse breath sounds. Few crackles here and there. No wheezing. CARDIAC: S1, S2. Regular rate. No S3 or S4. ABDOMEN: Soft, not distended or tender. No ascites. No bladder distention. MUSCULOSKELETAL: No joint inflammatory activity. No edema. Pulses 1+ in dorsalis pedis. LABORATORY DATA: Sodium 137, creatinine is up to 1.51. GFR is at 44, glucose 239, AST 39, ALT 66, CK 3.4, albumin 2.9. SARS COVID was positive. A chest x-ray with diffuse bilateral infiltrates. ASSESSMENT: Severe acute respiratory syndrome coronavirus disease pneumonia, maybe 4 days since onset of illness. He uses O2 nasal cannula at home, so I am going to start him on Remdesivir despite of BiPAP because he is very early on in the course of illness and continue methylprednisolone and Eliquis. The patient will have a very high likelihood ending up mechanical ventilation if he does not have an advanced directive, daily inflammatory markers. Job ID: [id number] MTDD
[2020-04-18 03:50] LABS: #Lymphocytes 0.3 thou/uL (1.20-3.40); #Monocytes 0.2 thou/uL (0.11-0.59); #Neutrophils 20.1 thou/uL (1.40-6.50); %Eosinophils 0.1 % (0.0-10.0); %Lymphocytes 1.2 % (21.0-51.0); %Monocytes 1.1 % (0.0-10.0); %Neutrophils 97.6 % (42.0-75.0); Hemoglobin 12.7 g/dL (14.0-18.0); Mean Corpuscular HGB CONC 30.9 g/dL (32.0-36.0); Mean Corpuscular Hemoglobin 28.8 pg (27.0-31.0); Mean Corpuscular Volume 93.2 fL (78.0-98.0); Mean Platelet Volume 9.9 fL (7.4-10.4); Platelet Count 79 thou/uL (130-400); RBC Distribution Width 13.1 % (11.5-14.5); Red Blood Cell (RBC) Count 4.42 mill/uL (4.70-6.10); White Blood Cell (WBC) Count 20.6 thou/uL (4.8-10.8)
[2020-04-18 04:00] LABS: Anion Gap 19 mmol/L (10-20); BUN (Urea Nitrogen) 64 mg/dL (8.4-25.7); Calc. Creatinine Clearance 54 mL/min (70-130); Calcium 8.5 mg/dL (7.8-10.44); Carbon Dioxide 22 mmol/L (23-31); Chloride 106 mmol/L (98-107); Estimated GFR-MDRD 68; Glucose 230 mg/dL (83-110); Potassium 5.7 mmol/L (3.5-5.1); Sodium 141 mmol/L (136-145)
[2020-04-18 04:04] LABS: ALT (SGPT) 52 U/L (8-55); AST (SGOT) 38 U/L (5-34); Albumin 2.8 g/dL (3.4-4.8); Alkaline Phosphatase 68 U/L (40-110); Bilirubin, Direct 0.2 mg/dL (0.1-0.3); Bilirubin, Total 0.5 mg/dL (0.2-1.2); Protein, Total 5.7 g/dL (5.8-8.1)
[2020-04-18] MEDS: Sodium Chloride 0.45% 1,000 ML IV SCH ×2 (05:43→17:37)
[2020-04-18] MEDS: Ascorbic Acid 500 mg Chewable Tablet PO SCH (07:41)
[2020-04-18] MEDS: Albuterol 200 PUFF (6.7GM INHALER) INH SCH ×4 (07:41→17:07)
[2020-04-18] MEDS: Apixaban 5 MG TAB PO SCH ×2 (07:41→19:22)
[2020-04-18] MEDS: Zinc Sulfate 220 MG CAP PO SCH (07:42)
[2020-04-18] MEDS: Famotidine 20 MG TAB PO SCH (07:42)
[2020-04-18] MEDS: methylPREDNISolone Sod Succ 40 MG VIAL IVP SCH ×2 (09:10→19:54)
[2020-04-18] MEDS ORDERED: Morphine 2 MG/ML VIAL IV PRN (09:59)
[2020-04-18] MEDS: Lorazepam 2 MG/ML VIAL SLOW IVP PRN (12:07)
--- NOTE | 2020-04-18 13:14 | EKG ---
Test Reason : Blood Pressure : / mmHG Vent. Rate : 086 BPM Atrial Rate : 159 BPM P-R Int : 000 ms QRS Dur : 082 ms QT Int : 388 ms P-R-T Axes : 000 -55 084 degrees QTc Int : 464 ms Atrial fibrillation Left axis deviation Low voltage QRS Prolonged QT Abnormal ECG Confirmed by ALFONSO GERBER DO ([id number]), publications editor LASHA VELASCO ([id number]) on 04/18/2020 1:14:18 PM Referred By: Confirmed By:ALFONSO GERBER DO
[2020-04-18] MEDS ORDERED: Morphine 4 MG/ML VIAL SLOW IVP SCH (14:00)
[2020-04-18] MEDS ORDERED: Morphine 2 MG/ML VIAL IV SCH (14:00)
--- NOTE | 2020-04-18 16:12 | PDOC.HOSPP ---
- Subjective Encounter Date: 04/18/20 Encounter Time: 16:11 Subjective: Mr. Israel was seen today in follow-up of COVID pneumonia with respiratory failure. The patient is lethargic. He is answer questions. - Objective Vital Signs & Weight: Vital Signs (12 hours) Temp Pulse Resp Pulse Ox 04/18/20 08:40 92 15 98 04/18/20 08:00 97.4 F L 97 04/18/20 04:15 97 F L Weight Weight 162 lb 4.8 oz Most Recent Monitor Data Heart Rate from ECG 100 NIBP 147/62 NIBP BP-Mean 90 Respiration from ECG 14 SpO2 97 I&O: 04/17/20 04/18/20 04/19/20 06:59 06:59 06:59 Output Total 450 Balance -450 Result Diagrams: 04/18/20 03:13 04/18/20 03:13 Hospitalist ROS - Medication Medications: Active Medications Generic Name Dose Route Start Last Admin Trade Name Freq PRN Reason Stop Dose Admin Albuterol Sulfate 2 puff 04/17/20 15:00 04/18/20 14:07 Albuterol 200 Puff (6.7gm Inhaler) INH Not Given [id number] CHIDI Apixaban 5 mg 04/16/20 09:00 04/18/20 07:41 Apixaban 5 Mg Tab PO Not Given BID CHIDI Ascorbic Acid 1,000 mg 04/18/20 09:00 04/18/20 07:41 Ascorbic Acid 500 Mg Chewable Tablet PO Not Given DAILY CHIDI Famotidine 20 mg 04/18/20 09:00 04/18/20 07:42 Famotidine 20 Mg Tab PO Not Given 0900 CHIDI Sodium Chloride 1,000 mls @ 75 mls/hr 04/17/20 13:00 04/18/20 05:43 1/2 Normal Saline IV 1,000 mls .[id number] CHIDI Administration Lorazepam 0.5 mg 04/18/20 09:51 04/18/20 12:07 Lorazepam 2 Mg/Ml Vial SLOW IVP 0.5 mg Q6H PRN Administration Anxiety/Agitation Methylprednisolone Sodium Succinate 40 mg 04/17/20 21:00 04/18/20 09:10 Methylprednisolone Sod Succ 40 Mg Vial IVP 40 mg Q12HR CHIDI Administration Sodium Chloride 10 ml 04/16/20 09:00 04/18/20 09:10 Flush - Normal Saline 10 Ml Syringe IVF 10 ml Q12HR CHIDI Administration Zinc Sulfate 220 mg 04/16/20 09:00 04/18/20 07:42 Zinc Sulfate 220 Mg Cap PO Not Given DAILY CHIDI - Exam Eye: PERRL, anicteric sclera Heart: RRR, no murmur, no gallops, no rubs, normal peripheral pulses Respiratory: CTAB (+ very faint basilar rales, and diminished breath sounds throughout.) Gastrointestinal: soft, non-tender, non-distended, normal bowel sounds, no pa lpable masses, no hepatomegaly Extremities: no cyanosis, no edema Hosp A/P (1) Acute and chronic respiratory failure with hypoxia Code(s): J96.21 - ACUTE AND CHRONIC RESPIRATORY FAILURE WITH HYPOXIA Status: Acute (2) Pneumonia due to 2019-nCoV Code(s): U07.1 - COVID-19; J12.89 - OTHER VIRAL PNEUMONIA Status: Acute (3) CKD (chronic kidney disease), stage III Code(s): N18.30 - CHRONIC KIDNEY DISEASE, STAGE 3 UNSPECIFIED Status: Acute (4) COPD exacerbation Code(s): J44.1 - CHRONIC OBSTRUCTIVE PULMONARY DISEASE W (ACUTE) EXACERBATION Status: Acute (5) CAD (coronary artery disease) Code(s): I25.10 - ATHSCL HEART DISEASE OF [place] CORONARY ARTERY W/O ANG PCTRS Status: Chronic Qualifiers: Coronary Disease-Associated Artery/Lesion type: bypass graft [place] vs. transplanted heart: [place] heart Associated angina: without angina Qualified Code(s): I25.810 - Atherosclerosis of coronary artery bypass graft(s) without angina pectoris (6) HTN (hypertension) Code(s): I10 - ESSENTIAL (PRIMARY) HYPERTENSION Status: Chronic Qualifiers: - Plan * Acute on chronic respiratory failure due to COVID pneumonia- the patient's condition is guarded * Continue IV Solumedrol, and he is receiving Remdesivir * He continues to require BiPAP * HTN_ blood pressure is stable * AFIB- his heart rate is controlled, and continue Eliquis
[2020-04-18] MEDS: Morphine 4 MG/ML VIAL SLOW IVP PRN ×2 (17:38→22:59)
[2020-04-18] MEDS ORDERED: REMDESIVIR (EUA) 100 MG in Sodium Chloride 0.9% 250 ML 230 ML IV SCH (18:00)
--- NOTE | 2020-04-18 19:03 | PRG ---
DATE OF SERVICE: 04/18/2020 Mr. Israel is less responsive today. He is on BiPAP. His vital signs remained stable. O2 sats were in the low 90s. It does not appear he will survive this. I called his to inform her that at my last visit with Mr. Israel last admission was involved with a long bedside conversation where he told me he was afraid to go and live good life, but was more concerned about leaving his with nobody to care for and he was about dying. I called her and relay that information to her since she was in the room when he told me that. Her response was to tell me how much that she was going to have if he . She quickly informed me she did not know how she would pay for everything. I discussed going home with hospice versus staying in the hospital for comfort care. She would try to decide on this. Job ID: [id number]
[2020-04-18 19:56] VITALS: TEMP 96.4
[2020-04-19 04:12] LABS: ALT (SGPT) 50 U/L (8-55); AST (SGOT) 24 U/L (5-34); Albumin 2.8 g/dL (3.4-4.8); Alkaline Phosphatase 79 U/L (40-110); Bilirubin, Direct 0.3 mg/dL (0.1-0.3); Bilirubin, Total 0.5 mg/dL (0.2-1.2); Protein, Total 5.6 g/dL (5.8-8.1)
[2020-04-19] MEDS: Morphine 4 MG/ML VIAL SLOW IVP PRN ×3 (04:14→09:21)
[2020-04-19] MEDS: Sodium Chloride 0.45% 1,000 ML IV SCH (06:45)
[2020-04-19] MEDS: Albuterol 200 PUFF (6.7GM INHALER) INH SCH ×2 (07:24→07:25)
[2020-04-19] MEDS: Famotidine 20 MG TAB PO SCH (07:25)
[2020-04-19] MEDS: Ascorbic Acid 500 mg Chewable Tablet PO SCH (07:25)
[2020-04-19] MEDS: Apixaban 5 MG TAB PO SCH (07:25)
[2020-04-19] MEDS: Zinc Sulfate 220 MG CAP PO SCH (07:26)
[2020-04-19] MEDS: methylPREDNISolone Sod Succ 40 MG VIAL IVP SCH (07:53)
--- NOTE | 2020-04-19 09:11 | PDOC.HOSPP ---
- Subjective Encounter Date: 04/19/20 Encounter Time: 09:09 Subjective: Mr. Israel was seen today in follow-up of COVID pneumonia and respiratory failure. He is lethargic, but will awaken . He appears extremely weak. He denies having any pain. - Objective Vital Signs & Weight: Vital Signs (12 hours) Temp Pulse Resp Pulse Ox 04/19/20 07:40 93 L 04/19/20 07:00 96.4 F L 04/19/20 00:53 93 L 04/19/20 00:52 95 22 H 94 L Weight Weight 162 lb 4.8 oz Most Recent Monitor Data Heart Rate from ECG 95 NIBP 166/111 NIBP BP-Mean 129 Respiration from ECG 16 SpO2 94 I&O: 04/18/20 04/19/20 04/20/20 06:59 06:59 06:59 Intake Total 835 Output Total 450 1500 Balance -450 -665 Result Diagrams: 04/18/20 03:13 04/18/20 03:13 Hospitalist ROS - Medication Medications: Active Medications Generic Name Dose Route Start Last Admin Trade Name Freq PRN Reason Stop Dose Admin Albuterol Sulfate 2 puff 04/17/20 15:00 04/19/20 07:25 Albuterol 200 Puff (6.7gm Inhaler) INH Not Given [id number] CHIDI Apixaban 5 mg 04/16/20 09:00 04/19/20 07:25 Apixaban 5 Mg Tab PO Not Given BID CHIDI Ascorbic Acid 1,000 mg 04/18/20 09:00 04/19/20 07:25 Ascorbic Acid 500 Mg Chewable Tablet PO Not Given DAILY CHIDI Famotidine 20 mg 04/18/20 09:00 04/19/20 07:25 Famotidine 20 Mg Tab PO Not Given 0900 CHIDI Levofloxacin 750 mg/ Device 150 mls @ 100 mls/hr 04/18/20 21:00 04/18/20 19:55 IVPB 150 mls Q2D@2100 CHIDI Administration Sodium Chloride 1,000 mls @ 75 mls/hr 04/17/20 13:00 04/19/20 06:45 1/2 Normal Saline IV 1,000 mls .[id number] CHIDI Administration Lorazepam 0.5 mg 04/18/20 09:51 04/18/20 12:07 Lorazepam 2 Mg/Ml Vial SLOW IVP 0.5 mg Q6H PRN Administration Anxiety/Agitation Methylprednisolone Sodium Succinate 40 mg 04/17/20 21:00 04/19/20 07:53 Methylprednisolone Sod Succ 40 Mg Vial IVP 40 mg Q12HR CHIDI Administration Morphine Sulfate 4 mg 04/18/20 14:04 04/19/20 07:52 Morphine 4 Mg/Ml Vial SLOW IVP 4 mg Q1H PRN Administration Moderate to Severe Pain (6-10) Sodium Chloride 10 ml 04/16/20 09:00 04/19/20 07:52 Flush - Normal Saline 10 Ml Syringe IVF 10 ml Q12HR CHIDI Administration Zinc Sulfate 220 mg 04/16/20 09:00 04/19/20 07:26 Zinc Sulfate 220 Mg Cap PO Not Given DAILY CHIDI - Exam Eye: PERRL, anicteric sclera Heart: RRR, no murmur, no gallops, no rubs, normal peripheral pulses Respiratory: rales (+ rales at both bases) Gastrointestinal: soft, non-tender, non-distended, normal bowel sounds, no palpable masses, no hepatomegaly Extremities: no cyanosis, no edema Hosp A/P (1) Acute and chronic respiratory failure with hypoxia Code(s): J96.21 - ACUTE AND CHRONIC RESPIRATORY FAILURE WITH HYPOXIA Status: Acute (2) Pneumonia due to 2019-nCoV Code(s): U07.1 - COVID-19; J12.89 - OTHER VIRAL PNEUMONIA Status: Acute (3) CKD (chronic kidney disease), stage III Code(s): N18.30 - CHRONIC KIDNEY DISEASE, STAGE 3 UNSPECIFIED Status: Acute (4) COPD exacerbation Code(s): J44.1 - CHRONIC OBSTRUCTIVE PULMONARY DISEASE W (ACUTE) EXACERBATION Status: Acute (5) CAD (coronary artery disease) Code(s): I25.10 - ATHSCL HEART DISEASE OF [place] CORONARY ARTERY W/O ANG PCTRS Status: Chronic Qualifiers: Coronary Disease-Associated Artery/Lesion type: bypass graft [place] vs. transplanted heart: [place] heart Associated angina: without angina Qualified Code(s): I25.810 - Atherosclerosis of coronary artery bypass graft(s) without angina pectoris (6) HTN (hypertension) Code(s): I10 - ESSENTIAL (PRIMARY) HYPERTENSION Status: Chronic Qualifiers: - Plan * Acute on chronic respiratory failure due to COVID pneumonia-grave * Discussed with Dr. Olmos. The plan will be to remove BiPAP today * Remdesivir was discontinued * Comfort care
[2020-04-19] MEDS: Lorazepam 2 MG/ML VIAL SLOW IVP PRN (09:22)
--- NOTE | 2020-04-19 17:27 | PRG ---
DATE OF SERVICE: 04/19/2020 Mr. Israel remained unresponsive this morning. There is no change in his exam. He had all signs of severe muscle fatigue. From my previous discussion with him, he is a do not resuscitate patient. I called the again this morning and informed her that he would not survive based on his current exam findings and clinical condition. She was agreeable to remove the BiPAP and just placing him on oxygen. He shortly thereafter. He was pronounced by the nursing staff. Job ID: [id number]
--- NOTE | 2020-04-19 18:34 | PDOC.DS.DS ---
Provider - Provider Date of Admission: 04/15/20 17:07 Date of Discharge: 04/19/20 Admitting Provider: Chitra Martins MD Consultations: Infectious Disease, Pulmonary Primary Care Physician: Steve Slade DO Course - Hospital Course Hospital Course: Mr. Israel is an 85-year-old gentleman who has a history of COPD as well as coronary artery disease. He has a history of previous bypass surgery as well as atrial fibrillation. He presented to the emergency room with shortness of breath. He was found to be Covid positive. And was admitted for acute respiratory failure with hypoxemia due to Covid pneumonia. He was started on IV steroids. As well as supplemental oxygen. He was seen by the furnace loader as well as ID specialist. And due to his underlying lung condition he decompensated quickly with regards to the COVID-19 pneumonia. And despite efforts to treat this condition he did not improve and became dependent on BiPAP. The patient did not want to be intubated and this was not done. And after his condition did not improve the patient made the decision to be placed on comfort care only. And after he was taken off of the BiPAP he shortly thereafter. Resuscitation Status: 04/15/20 16:52 Resuscitation Status Routine Resuscitation Status: DNAR: NO Resuscitation Discussed with: PATIENT - Labs Lab Results: 04/18/20 03:13 04/18/20 03:13 Abnormal Lab Results - Last 48 hrs 04/18/20 03:13: Potassium 5.7 H, Carbon Dioxide 22 L, BUN 64 H 04/18/20 03:13: WBC 20.6 H, RBC 4.42 L, Hgb 12.7 L, Hct 41.2 L, MCHC 30.9 L, Plt Count 79 L, Neutrophils % 97.6 H, Lymphocytes % 1.2 L, Neutrophils # 20.1 H, Lymphocytes # 0.3 L 04/18/20 03:13: AST 38 H, Serum Total Protein 5.7 L, Albumin 2.8 L 04/19/20 03:21: Serum Total Protein 5.6 L, Albumin 2.8 L Microbiology - Entire Visit 04/15/20 17:41 Venous blood - Left Arm Blood Culture - Preliminary NO GROWTH AT 48 HOURS 04/15/20 17:34 Venous blood - Right Arm Blood Culture - Preliminary NO GROWTH AT 48 HOURS - Physical Exam Vitals: Vital Signs (12 hours) Temp Pulse Ox 04/19/20 07:40 93 L 04/19/20 07:00 96.4 F L Weight Weight 162 lb 4.8 oz Most Recent Monitor Data Heart Rate from ECG 63 NIBP 87/44 NIBP BP-Mean 58 Respiration from ECG 17 SpO2 66 Physical Exam: The patient was seen and examined on the day of discharge. Problem - Problem (1) Acute and chronic respiratory failure with hypoxia Code(s): J96.21 - ACUTE AND CHRONIC RESPIRATORY FAILURE WITH HYPOXIA Status: Acute (2) Pneumonia due to 2019-nCoV Code(s): U07.1 - COVID-19; J12.89 - OTHER VIRAL PNEUMONIA Status: Acute (3) CKD (chronic kidney disease), stage III Code(s): N18.30 - CHRONIC KIDNEY DISEASE, STAGE 3 UNSPECIFIED Status: Acute (4) COPD exacerbation Code(s): J44.1 - CHRONIC OBSTRUCTIVE PULMONARY DISEASE W (ACUTE) EXACERBATION Status: Acute (5) CAD (coronary artery disease) Code(s): I25.10 - ATHSCL HEART DISEASE OF [place] CORONARY ARTERY W/O ANG PCTRS Status: Chronic Qualifiers: Coronary Disease-Associated Artery/Lesion type: bypass graft [place] vs. transplanted heart: [place] heart Associated angina: without angina Qualified Code(s): I25.810 - Atherosclerosis of coronary artery bypass graft(s) without angina pectoris (6) HTN (hypertension) Code(s): I10 - ESSENTIAL (PRIMARY) HYPERTENSION Status: Chronic Qualifiers: Plan - Discharge Medications Home Medications: Medication Instructions Recorded Confirmed Type Isosorbide Mononitrate [Isosorbide 60 mg PO DAILY 03/17/15 04/17/20 History Mononitrate ER] Apixaban [Eliquis] 5 mg PO BID #60 tab 06/14/16 04/17/20 Rx Fenofibrate Nanocrystallized 48 mg PO DAILY 07/22/16 04/03/20 History [Tricor] Aspirin [Adult Low Dose Aspirin EC] 81 mg PO DAILY 01/18/17 04/17/20 History Lisinopril [Zestril] 2.5 mg PO BID 01/18/17 04/17/20 History Albuterol Sulfate [Ventolin Hfa] 2 puff IH Q4HR PRN 02/07/18 04/17/20 History Furosemide [Lasix] 40 mg PO BID 12/02/19 04/17/20 History Budesonide 0.5 mg NEB BID 04/03/20 04/03/20 History Ipratropium/Albuterol Sulfate 3 ml NEB QID 04/03/20 04/03/20 History [DuoNeb] Potassium Gluconate [Potassium] 500 mg PO BID 04/03/20 04/03/20 History Cefdinir [Omnicef] 300 mg PO BID #12 cap 04/10/20 04/17/20 Rx Diltiazem CD [Cardizem CD] 120 mg PO DAILY #30 cap 04/10/20 04/17/20 Rx Atorvastatin Calcium 20 mg PO DAILY 04/17/20 04/17/20 History FLUoxetine HCl [Sarafem] 20 mg PO DAILY 04/17/20 04/17/20 History predniSONE 20 mg PO QAM-WM 04/17/20 04/17/20 History Allergies: No Known Allergies Allergy (Verified 04/17/20 04:29) - Follow up Plan Referrals: Steve Slade DO [Primary Care Provider] - Disposition: Quality - Care Measures CORE MEASURES:: N/A (Patient )
--- NOTE | 2020-04-21 04:00 | PQF ---
CLINICAL DOCUMENTATION CLARIFICATION FORM: Dear : Vidal Stahl Date / Time: 04/21/2020 0351 Please exercise your independent, professional judgment in responding to the clarification form. Clinical indicators are provided on the bottom of this form for your review Please check appropriate box(es): [X ] Sepsis due to Covid 19 PNA [ ] Severe sepsis due to Covid 19 PNA with Acute Respiratory Failure [ ] Septic Shock [ ] Localized infection without sepsis [ ] Other diagnosis [ ] Unable to determine In addition, please specify: Present on Admission (POA): [X ] Yes [ ] No [ ] Unable to determine Physician Signature: Date/Time: For continuity of documentation, please document condition throughout progress notes and discharge summary. Thank You. To be completed by CDI/Coding staff for physician review: Present Clinical Indicators - Signs / Symptoms / Labs Results and Location in Medical Record [X] WBC 17.1, Plt count 102, Neutrophils 96.7 Laboratory 04/15 [X] Blood culture : No growth in 5 days Microbiology 04/15 [X] BP 83/50, Pulse 95, Resp 24, Temp 98 Vital signs 04/15 [X] Covid Pneumonia H&p p1 03/15 Dr Aden [X] Acute on chronic respiratory failure H&p p1 03/15 Dr Aden [X] Chest Xray: Marked worsening in the appearance of the chest with developing alveolar and interstitial opacity Chest Xray 04/17 Present Risk Factors Results and Location in Medical Record [X] 85 year-old Male H&p p1 03/15 Dr Aden [X] COPD on home O2 H&p p1 03/15 Dr Aden [X] CAD s/p CABG H&p p1 03/15 Dr Aden [X] AFib H&p p1 03/15 Dr Aden [X] HTN H&p p1 03/15 Dr Aden [X] CKD H&p p1 03/15 Dr Aden [X] Covid Pneumonia H&p p1 03/15 Dr Aden [X] Former Smoker H&p p2 03/15 Dr Aden Present Treatments Results and Location in Medical Record [X] IVF NS 1L AUG 20 [X] IV Remdesivir 200 mg AUG 20 [X] IV Soludedrol 125 mg AUG 20 [X] IV Levaquin 750 mg AUG 20 [X] IV Rocephin 2 gm AUG 20 [X] IV Zithromax 500 mg AUG 10 [X] BiPap Respiratory Panel 04/16 [X] Blood culture Microbiology 04/15 [X] Chest X-ray Imaging Dr Meyers [X] Isolation Ordered Dr Aden 04/15 [X] ID consult Consult Darwin Goncalves 04/17 [X] Respiratory consult Consult Richard Haines 04/17 CDS/Preparation Supervisor Signature: Jennifer Gisella Bolanos Phone #: ext [phone] Date/Time: 04/21/2020 9433 This is a permanent part of the Medical Record [facility]
== END 2020-04-19 12:00 | disposition expired | DRG 871 ==
LOC: ERS 12:24 → ERHOLD 17:07 → IMCU/EMU 04-16 21:36
PROVIDERS: ADMIT Internal Medicine; ATTEND Internal Medicine
PROC: 8E0ZXY6 Isolation (ICD-10-PCS; 2020-04-15)
PROC: 5A09457 Assistance with Respiratory Ventilation, 24-96 Consecutive Hours, Continuous Positive Airway Pressure (ICD-10-PCS; 2020-04-16)
PROC: XW033E5 Introduction of Remdesivir Anti-infective into Peripheral Vein, Percutaneous Approach, New Technology Group 5 (ICD-10-PCS; principal; 2020-04-17)
DX: A41.89 Other specified sepsis (principal); U07.1 COVID-19; J12.89 Other viral pneumonia; J96.21 Acute and chronic respiratory failure with hypoxia; I21.A1 Myocardial infarction type 2; J44.1 Chronic obstructive pulmonary disease with (acute) exacerbation; J44.0 Chronic obstructive pulmonary disease with (acute) lower respiratory infection; Z66 Do not resuscitate; Z51.5 Encounter for palliative care; M19.90 Unspecified osteoarthritis, unspecified site; N40.0 Benign prostatic hyperplasia without lower urinary tract symptoms; I25.10 Atherosclerotic heart disease of native coronary artery without angina pectoris; F41.9 Anxiety disorder, unspecified; E78.00 Pure hypercholesterolemia, unspecified; G89.29 Other chronic pain; M54.5 Low back pain; N18.30 Chronic kidney disease, stage 3 unspecified; I12.9 Hypertensive chronic kidney disease with stage 1 through stage 4 chronic kidney disease, or unspecified chronic kidney disease; I48.0 Paroxysmal atrial fibrillation; D72.829 Elevated white blood cell count, unspecified; T38.0X5A Adverse effect of glucocorticoids and synthetic analogues, initial encounter; Z95.1 Presence of aortocoronary bypass graft; Z87.891 Personal history of nicotine dependence; Z89.422 Acquired absence of other left toe(s); Z87.442 Personal history of urinary calculi; Z99.81 Dependence on supplemental oxygen; I25.2 Old myocardial infarction; Z79.899 Other long term (current) drug therapy; Z79.01 Long term (current) use of anticoagulants; Z79.52 Long term (current) use of systemic steroids
CPT/HCPCS: 36415; 36416; 71045; 80048; 80053; 80076; 82553; 82805; 83880; 84484; 85025; 87040; 93005; 94660; 94664; 96365; 96368; J0456; J0696; J1940; J1956; J2060; J2270; J2920; J2930; J3475; J7050; S0028; U0002